=== PATIENT | female | born 1945 | race Asian ===

== ENCOUNTER 2020-08-18 06:18 | Inpatient (IN) | payer MEDICARE, OTHER, SELFPAY ==
[2020-08-18] VITALS (25 sets, daily range): BP systolic 92–171; BP diastolic 49–111; PULSE 72–100; RESP 16–30; TEMP 36.5–37.4; O2SAT 94–100; BMI 20.2
--- NOTE | 2020-08-18 06:35 | ED.WEAKNESS ---
HPI - Weakness <Adilene Manley DO - Last Filed: 08/21/20 03:30> General Chief complaint: Weakness Stated complaint: feels dehyrated has bone cancer Time Seen by Provider: 08/18/20 06:21 Source: patient and other (caregiver) Mode of arrival: Wheelchair Limitations: no limitations History of Present Illness HPI Narrative: This is a 75-year-old female who states she is feeling generally weak and dehydrated. She states her lips felt dry the last 2 or 3 days even though she has been drinking water regularly. She denies fevers or chills. She denies any chest pain or pressure, no nausea, no vomiting, she denies any issues with bowel movements such as diarrhea constipation. She denies any frequency, dysuria, urgency and has not appreciated any decrease in her urine output. She states that she has felt weak for the past 1-2 days. She did test COVID positive in June and was kept at [facility] until she tested covid negative. Patient has known cancer, she had her left pneumonectomy removed for cancer and is chronically home O2 dependent status post COVID infection in June, per her caregiver she has metastases to the brain, she also has bone metastases. Patient is on metoprolol, amlodipine, ibuprofen for pain, her daily chemotherapy agent and one additional medication. She denies any prior heart attacks or strokes. Denies any prior surgeries besides her left long ring removed. 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 Her caregiver states that she seemed increasingly weak since her discharge from a hospital. Related Data Home Medications Medication Instructions Recorded Confirmed amlodipine [Norvasc] 5 mg PO DAILY 08/18/20 08/18/20 gabapentin 100 mg PO TID 08/18/20 08/18/20 lorlatinib 25 mg PO DAILY 08/18/20 08/18/20 metoprolol tartrate 25 mg PO BID 08/18/20 08/18/20 Previous Rx's Medication Instructions Recorded fentanyl 1 patch TRANSDERMAL Q72H 7 Days #3 08/20/20 ea omeprazole 40 mg PO BID 90 Days #180 cap 08/20/20 Allergies Allergy/AdvReac Type Severity Reaction Status Date / Time No Known Drug Allergies Allergy Verified 08/18/20 07:47 Review of Systems <DO Gaurav Denson Last Filed: 08/21/20 03:30> Review of Systems ROS Unobtainable: All systems reviewed & are unremarkable except as noted in HPI and below Patient History <Adilene Manley DO - Last Filed: 08/21/20 03:30> Medical History (Updated 08/18/20 @ 15:29 by Karla Peterson MD) Cancer Chronic anemia Chronic respiratory failure Hypertension Metastatic lung cancer (metastasis from lung to other site) Pneumonia due to COVID-19 virus Surgical History (Updated 08/18/20 @ 06:52 by Adilene Manley DO) H/O pneumonectomy Family History (Updated 08/18/20 @ 15:30 by Karla Peterson MD) Father Natural with unknown cause Social History household members: spouse Smoking Status: Never smoker alcohol intake: never Exam <Adilene Manley DO - Last Filed: 08/21/20 03:30> Initial Vital Signs Initial Vital Signs: Vital Signs Temperature 98.1 F 08/18/20 06:25 Pulse Rate 84 08/18/20 06:25 Respiratory Rate 18 08/18/20 06:25 Blood Pressure 92/49 L 08/18/20 06:25 Pulse Oximetry 100 08/18/20 06:25 GEN: Thin, elderly appearing female, alert and oriented, patient appears to be in mild distress. Patient is significantly uncomfortable with movement from the wheelchair to the bed. She is improved after readjustment. HEENT: Atraumatic, pupils are equal round reactive to light, extraocular movements are intact, nares are clear, dry mucous membranes. HEART: Regular rate and rhythm without murmur, clicks, rubs. Pulses are equal in bilateral lower extremities LUNGS:Lungs clear to auscultation, no wheezes, rales, crackles, chest moves symmetrically ABD:bowel sounds normal, soft, non-tender, no guarding, rebound, rigidity, no masses noted, no hepatosplenomegaly :No CVA tenderness MSCL: Non-tender, no muscle atrophy, full range of motion but patient has pain weight-bearing on the left leg. NEURO:CN 2-12 intact, sensation normal SKIN: no rash, no erythema or other changes noted. <Zak Dobbins DO - Last Filed: 08/18/20 08:55> Initial Vital Signs Initial Vital Signs: Vital Signs Temperature 98.1 F 08/18/20 06:25 Pulse Rate 84 08/18/20 06:25 Respiratory Rate 18 08/18/20 06:25 Blood Pressure 92/49 L 08/18/20 06:25 Pulse Oximetry 100 08/18/20 06:25 Course <Adilene Manley, DO - Last Filed: 08/21/20 03:30> Orders Ordered: Discontinued Medications Acetaminophen (Acetaminophen 325 Mg Tablet) 650 mg PO Q6HR PRN PRN Reason: Fever/Mild Pain (1-3) Hydrocodone Bitart/Acetaminophen (Hydrocodone/Acet 5/325 Tablet) 1 tab PO Q4HR PRN PRN Reason: Pain, Moderate (4-6) Amlodipine Besylate (Amlodipine 5 Mg Tablet) 5 mg PO DAILY [facility] Last Admin: 08/20/20 08:32 Dose: 5 mg Documented by: Admin: 08/19/20 08:49 Dose: Not Given Documented by: ANDREA Amlodipine Besylate (Amlodipine 5 Mg Tablet) 5 mg PO NOW ONE Stop: 08/18/20 15:37 Last Admin: 08/18/20 16:20 Dose: 5 mg Documented by: LOUIS Fentanyl (Fentanyl 25 Mcg/Patch) 25 mcg TOP Q72H [facility] Last Admin: 08/19/20 14:33 Dose: 25 mcg Documented by: TERRENCE Gabapentin (Gabapentin 100 Mg Capsule) 100 mg PO TID [facility] Last Admin: 08/20/20 08:32 Dose: 100 mg Documented by: Admin: 08/19/20 20:29 Dose: 100 mg Documented by: Admin: 08/19/20 15:31 Dose: 100 mg Documented by: Admin: 08/19/20 08:46 Dose: 100 mg Documented by: Admin: 08/18/20 21:56 Dose: 100 mg Documented by: Admin: 08/18/20 15:01 Dose: 100 mg Documented by: BAILEY Heparin Sodium (Porcine) (Heparin Flush (Cl/Picc/Mid-Line) 50 Unit/5 Ml Syringe) 50 unit IV BID [facility] Last Admin: 08/20/20 08:33 Dose: 50 unit Documented by: Admin: 08/19/20 20:29 Dose: 50 unit Documented by: Admin: 08/19/20 08:52 Dose: 50 unit Documented by: Admin: 08/18/20 21:56 Dose: 50 unit Documented by: LOUIS Heparin Sodium (Porcine) (Heparin Flush (Cl/Picc/Mid-Line) 50 Unit/5 Ml Syringe) 50 unit IV PRN PRN PRN Reason: Flush Hydromorphone HCl (Hydromorphone 0.5 Mg Inj) 0.5 mg IV Q6H PRN PRN Reason: Pain, Moderate (4-6) Sodium Chloride (Normal Saline 0.9%) 1,000 mls @ 1,000 mls/hr IV BOLUS ONE Stop: 08/18/20 07:40 Last Infusion: 08/18/20 11:28 Dose: 0 mls/hr Documented by: Infusion: 08/18/20 11:21 Dose: 125 mls/hr Documented by: Infusion: 08/18/20 10:03 Dose: 0 mls/hr Documented by: Infusion: 08/18/20 07:49 Dose: 125 mls/hr Documented by: Admin: 08/18/20 07:26 Dose: 1,000 mls/hr Documented by: KELLE Pantoprazole Sodium 80 mg/ (Sodium Chloride) 100 mls @ 10 mls/hr IV CONT KIMBERLEE Last Infusion: 08/18/20 11:28 Dose: 0 mg/hr, 0 mls/hr Documented by: Admin: 08/18/20 11:19 Dose: 8 mg/hr, 10 mls/hr Documented by: SATHISH Sodium Chloride (Normal Saline 0.9%) 1,000 mls @ 125 mls/hr IV CONT KIMBERLEE Last Infusion: 08/18/20 16:21 Dose: 0 mls/hr Documented by: Admin: 08/18/20 15:01 Dose: 125 mls/hr Documented by: Admin: 08/18/20 08:23 Dose: Not Given Documented by: PANCHO Dextrose/Lactated Ringer's (Dextrose 5%-Lactated Ringers) 1,000 mls @ 84 mls/hr IV CONT KIMBERLEE Last Infusion: 08/18/20 18:09 Dose: 0 mls/hr Documented by: Admin: 08/18/20 16:20 Dose: 84 mls/hr Documented by: LOUIS Metoprolol Tartrate (Metoprolol Ir 25 Mg Tablet) 25 mg PO BID [facility] Last Admin: 08/20/20 08:32 Dose: 25 mg Documented by: Admin: 08/19/20 20:29 Dose: 25 mg Documented by: Admin: 08/19/20 08:49 Dose: Not Given Documented by: Admin: 08/18/20 21:56 Dose: 25 mg Documented by: LOUIS Morphine Sulfate (Morphine 4 Mg/Ml Inj) 4 mg IV NOW ONE Stop: 08/18/20 08:31 Last Admin: 08/18/20 08:36 Dose: 2 mg Documented by: PANCHO Morphine Sulfate (Morphine 2 Mg/Ml Inj) 2 mg IV NOW ONE Stop: 08/18/20 09:46 Last Admin: 08/18/20 09:56 Dose: 2 mg Documented by: PANCHO Morphine Sulfate (Morphine 2 Mg/Ml Inj) 2 mg IV Q4HR PRN PRN Reason: Pain, Moderate (4-6) Last Admin: 08/19/20 06:01 Dose: 2 mg Documented by: Admin: 08/18/20 22:20 Dose: 2 mg Documented by: Admin: 08/18/20 11:49 Dose: 2 mg Documented by: BAILEY Naloxone HCl (Naloxone 0.4 Mg/Ml Vial) 0.2 mg IV Q2MIN PRN PRN Reason: Opiate Reversal Lorlatinib 25 Mg (Tablet) 50 mg PO DAILY [facility] Last Admin: 08/20/20 08:54 Dose: 50 mg Documented by: Admin: 08/19/20 08:51 Dose: 50 mg Documented by: ANDREA Lorlatinib 25 Mg (Tablet) 25 mg PO BEDTIME [facility] Last Admin: 08/19/20 20:32 Dose: 25 mg Documented by: Admin: 08/18/20 21:56 Dose: 25 mg Documented by: LOUIS Ondansetron HCl (Ondansetron 4 Mg/2 Ml Inj) 4 mg IV Q8HR PRN PRN Reason: Nausea And Vomiting Oxycodone HCl (Oxycodone Ir 5 Mg Tablet) 5 mg PO Q4HR PRN PRN Reason: Pain, Moderate (4-6) Last Admin: 08/19/20 08:44 Dose: 5 mg Documented by: Admin: 08/18/20 13:40 Dose: 5 mg Documented by: BAILEY Oxycodone HCl (Oxycodone Ir 5 Mg Tablet) 5 mg PO Q3HR PRN PRN Reason: Pain, Moderate (4-6) Last Admin: 08/20/20 11:31 Dose: 5 mg Documented by: Admin: 08/19/20 18:15 Dose: 5 mg Documented by: Admin: 08/19/20 12:07 Dose: 5 mg Documented by: ANDREA Oxycodone HCl (Oxycodone 5 Mg/5 Ml Oral Solution) 10 mg PO Q4HR PRN PRN Reason: Pain, Moderate (4-6) Pantoprazole Sodium (Pantoprazole 40 Mg Vial) 80 mg IV NOW ONE Stop: 08/18/20 07:37 Last Admin: 08/18/20 07:51 Dose: 80 mg Documented by: SATHISH Pantoprazole Sodium (Pantoprazole 40 Mg Vial) 40 mg IV BID [facility] Last Admin: 08/20/20 08:32 Dose: 40 mg Documented by: Admin: 08/19/20 20:29 Dose: 40 mg Documented by: Admin: 08/19/20 08:46 Dose: 40 mg Documented by: ANDREA Sodium Chloride (Sodium Chloride 0.9% Flush) 10 ml IV PRN PRN PRN Reason: Flush Last Admin: 08/19/20 08:52 Dose: 10 ml Documented by: Admin: 08/18/20 22:20 Dose: 10 ml Documented by: LOUIS Sodium Chloride (Sodium Chloride 0.9% Flush) 10 ml IV BID [facility] Last Admin: 08/20/20 08:33 Dose: 10 ml Documented by: Admin: 08/19/20 20:29 Dose: 10 ml Documented by: Admin: 08/19/20 08:50 Dose: 10 ml Documented by: Admin: 08/18/20 21:57 Dose: 10 ml Documented by: LOUIS Vital Signs Vital signs: Vital Signs - 8 hr 08/18/20 06:25 08/18/20 08:36 Temperature 98.1 F Pulse Rate 84 83 Respiratory Rate 18 22 Blood Pressure 92/49 L 171/81 H Pulse Oximetry 100 100 <Zak Dobbins, DO - Last Filed: 08/18/20 08:55> Orders Ordered: Discontinued Medications Acetaminophen (Acetaminophen 325 Mg Tablet) 650 mg PO Q6HR PRN PRN Reason: Fever/Mild Pain (1-3) Hydrocodone Bitart/Acetaminophen (Hydrocodone/Acet 5/325 Tablet) 1 tab PO Q4HR PRN PRN Reason: Pain, Moderate (4-6) Amlodipine Besylate (Amlodipine 5 Mg Tablet) 5 mg PO DAILY [facility] Last Admin: 08/20/20 08:32 Dose: 5 mg Documented by: Admin: 08/19/20 08:49 Dose: Not Given Documented by: ANDREA Amlodipine Besylate (Amlodipine 5 Mg Tablet) 5 mg PO NOW ONE Stop: 08/18/20 15:37 Last Admin: 08/18/20 16:20 Dose: 5 mg Documented by: LOUIS Fentanyl (Fentanyl 25 Mcg/Patch) 25 mcg TOP Q72H [facility] Last Admin: 08/19/20 14:33 Dose: 25 mcg Documented by: TERRENCE Gabapentin (Gabapentin 100 Mg Capsule) 100 mg PO TID [facility] Last Admin: 08/20/20 08:32 Dose: 100 mg Documented by: Admin: 08/19/20 20:29 Dose: 100 mg Documented by: Admin: 08/19/20 15:31 Dose: 100 mg Documented by: Admin: 08/19/20 08:46 Dose: 100 mg Documented by: Admin: 08/18/20 21:56 Dose: 100 mg Documented by: Admin: 08/18/20 15:01 Dose: 100 mg Documented by: BAILEY Heparin Sodium (Porcine) (Heparin Flush (Cl/Picc/Mid-Line) 50 Unit/5 Ml Syringe) 50 unit IV BID [facility] Last Admin: 08/20/20 08:33 Dose: 50 unit Documented by: Admin: 08/19/20 20:29 Dose: 50 unit Documented by: Admin: 08/19/20 08:52 Dose: 50 unit Documented by: Admin: 08/18/20 21:56 Dose: 50 unit Documented by: LOUIS Heparin Sodium (Porcine) (Heparin Flush (Cl/Picc/Mid-Line) 50 Unit/5 Ml Syringe) 50 unit IV PRN PRN PRN Reason: Flush Hydromorphone HCl (Hydromorphone 0.5 Mg Inj) 0.5 mg IV Q6H PRN PRN Reason: Pain, Moderate (4-6) Sodium Chloride (Normal Saline 0.9%) 1,000 mls @ 1,000 mls/hr IV BOLUS ONE Stop: 08/18/20 07:40 Last Infusion: 08/18/20 11:28 Dose: 0 mls/hr Documented by: Infusion: 08/18/20 11:21 Dose: 125 mls/hr Documented by: Infusion: 08/18/20 10:03 Dose: 0 mls/hr Documented by: Infusion: 08/18/20 07:49 Dose: 125 mls/hr Documented by: Admin: 08/18/20 07:26 Dose: 1,000 mls/hr Documented by: KELLE Pantoprazole Sodium 80 mg/ (Sodium Chloride) 100 mls @ 10 mls/hr IV CONT KIMBERLEE Last Infusion: 08/18/20 11:28 Dose: 0 mg/hr, 0 mls/hr Documented by: Admin: 08/18/20 11:19 Dose: 8 mg/hr, 10 mls/hr Documented by: SATHISH Sodium Chloride (Normal Saline 0.9%) 1,000 mls @ 125 mls/hr IV CONT KIMBERLEE Last Infusion: 08/18/20 16:21 Dose: 0 mls/hr Documented by: Admin: 08/18/20 15:01 Dose: 125 mls/hr Documented by: Admin: 08/18/20 08:23 Dose: Not Given Documented by: PANCHO Dextrose/Lactated Ringer's (Dextrose 5%-Lactated Ringers) 1,000 mls @ 84 mls/hr IV CONT KIMBERLEE Last Infusion: 08/18/20 18:09 Dose: 0 mls/hr Documented by: Admin: 08/18/20 16:20 Dose: 84 mls/hr Documented by: LOUIS Metoprolol Tartrate (Metoprolol Ir 25 Mg Tablet) 25 mg PO BID [facility] Last Admin: 08/20/20 08:32 Dose: 25 mg Documented by: Admin: 08/19/20 20:29 Dose: 25 mg Documented by: Admin: 08/19/20 08:49 Dose: Not Given Documented by: Admin: 08/18/20 21:56 Dose: 25 mg Documented by: LOUIS Morphine Sulfate (Morphine 4 Mg/Ml Inj) 4 mg IV NOW ONE Stop: 08/18/20 08:31 Last Admin: 08/18/20 08:36 Dose: 2 mg Documented by: PANCHO Morphine Sulfate (Morphine 2 Mg/Ml Inj) 2 mg IV NOW ONE Stop: 08/18/20 09:46 Last Admin: 08/18/20 09:56 Dose: 2 mg Documented by: PANCHO Morphine Sulfate (Morphine 2 Mg/Ml Inj) 2 mg IV Q4HR PRN PRN Reason: Pain, Moderate (4-6) Last Admin: 08/19/20 06:01 Dose: 2 mg Documented by: Admin: 08/18/20 22:20 Dose: 2 mg Documented by: Admin: 08/18/20 11:49 Dose: 2 mg Documented by: BAILEY Naloxone HCl (Naloxone 0.4 Mg/Ml Vial) 0.2 mg IV Q2MIN PRN PRN Reason: Opiate Reversal Lorlatinib 25 Mg (Tablet) 50 mg PO DAILY [facility] Last Admin: 08/20/20 08:54 Dose: 50 mg Documented by: Admin: 08/19/20 08:51 Dose: 50 mg Documented by: ANDREA Lorlatinib 25 Mg (Tablet) 25 mg PO BEDTIME [facility] Last Admin: 08/19/20 20:32 Dose: 25 mg Documented by: Admin: 08/18/20 21:56 Dose: 25 mg Documented by: LOUIS Ondansetron HCl (Ondansetron 4 Mg/2 Ml Inj) 4 mg IV Q8HR PRN PRN Reason: Nausea And Vomiting Oxycodone HCl (Oxycodone Ir 5 Mg Tablet) 5 mg PO Q4HR PRN PRN Reason: Pain, Moderate (4-6) Last Admin: 08/19/20 08:44 Dose: 5 mg Documented by: Admin: 08/18/20 13:40 Dose: 5 mg Documented by: BAILEY Oxycodone HCl (Oxycodone Ir 5 Mg Tablet) 5 mg PO Q3HR PRN PRN Reason: Pain, Moderate (4-6) Last Admin: 08/20/20 11:31 Dose: 5 mg Documented by: Admin: 08/19/20 18:15 Dose: 5 mg Documented by: Admin: 08/19/20 12:07 Dose: 5 mg Documented by: ANDREA Oxycodone HCl (Oxycodone 5 Mg/5 Ml Oral Solution) 10 mg PO Q4HR PRN PRN Reason: Pain, Moderate (4-6) Pantoprazole Sodium (Pantoprazole 40 Mg Vial) 80 mg IV NOW ONE Stop: 08/18/20 07:37 Last Admin: 08/18/20 07:51 Dose: 80 mg Documented by: SATHISH Pantoprazole Sodium (Pantoprazole 40 Mg Vial) 40 mg IV BID [facility] Last Admin: 08/20/20 08:32 Dose: 40 mg Documented by: Admin: 08/19/20 20:29 Dose: 40 mg Documented by: Admin: 08/19/20 08:46 Dose: 40 mg Documented by: ANDREA Sodium Chloride (Sodium Chloride 0.9% Flush) 10 ml IV PRN PRN PRN Reason: Flush Last Admin: 08/19/20 08:52 Dose: 10 ml Documented by: Admin: 08/18/20 22:20 Dose: 10 ml Documented by: LOUIS Sodium Chloride (Sodium Chloride 0.9% Flush) 10 ml IV BID [facility] Last Admin: 08/20/20 08:33 Dose: 10 ml Documented by: Admin: 08/19/20 20:29 Dose: 10 ml Documented by: Admin: 08/19/20 08:50 Dose: 10 ml Documented by: Admin: 08/18/20 21:57 Dose: 10 ml Documented by: LOUIS Vital Signs Vital signs: Vital Signs - 8 hr 08/18/20 06:25 08/18/20 08:36 Temperature 98.1 F Pulse Rate 84 83 Respiratory Rate 18 22 Blood Pressure 92/49 L 171/81 H Pulse Oximetry 100 100 MDM - Weakness <Adilene Manley DO - Last Filed: 08/21/20 03:30> Lab Data Result diagrams: 08/20/20 05:00 08/20/20 05:00 Labs: Lab Results 08/18/20 08/18/20 08/18/20 Range/Units 06:45 06:45 06:45 WBC 13.3 H (4.5-11.0) X10^3/uL RBC 3.13 L (4.0-5.2) X10^6/uL Hgb 7.7 L (12.0-16.0) g/dL Hct 24.9 L (36-46) % MCV 79.5 L (80-100) fL MCH 24.6 L (26-34) PG MCHC 30.9 (30-36) % RDW 18.9 H (11.6-14.8) % Plt Count 291 (150-400) X10^3/uL Neut % (Auto) 78.3 H (50-75) % Lymph % (Auto) 14.8 L (25-40) % [place] % (Auto) 5.1 (3-14) % Eos % (Auto) 0.9 L (2-4) % Baso % (Auto) 0.9 (0-2) % Neut # (Auto) 42042 H (4706-6501) /uL Lymph # (Auto) 2000 (3039-1376) /uL [place] # (Auto) 700 (0-900) /uL Eos # (Auto) 100 (0-450) /uL Baso # (Auto) 100 (0-100) /uL Platelet Estimate Adequate on smear Plt Morphology Comment RBC Morphology See below Polychromasia 1+ H Hypochromasia 1+ H Poikilocytosis 2+ H Anisocytosis 2+ H Target Cells 1+ H PT 11.5 (10.1-12.7) SECONDS INR 1.0 (0.9-1.3) APTT 29 (26.4-36.2) SECONDS Sodium 131 L (137-145) mmol/L Potassium 4.7 (3.4-5.1) mmol/L Chloride 102 (98-107) mmol/L Carbon Dioxide 30 (22-32) mmol/L BUN 18 H (7-17) mg/dL Creatinine 0.39 L (0.52-1.04) mg/dL Estimated GFR > 60.0 (>60) mL/min BUN/Creatinine Ratio 46.2 H (6-22) Glucose 132 H (80-110) mg/dL Lactate (0.7-2.1) mmol/L Calcium 9.6 (8.4-10.2) mg/dL Total Bilirubin 0.8 (0.2-1.3) mg/dL AST 84 H (14-36) IU/L ALT 19 (<35) IU/L Alkaline Phosphatase 997 H (38-126) U/L Troponin I < 0.012 (0.01-0.034) ng/mL Total Protein 7.0 (6.3-8.2) g/dL Albumin 3.7 (3.5-5.0) g/dL Globulin 3.3 (1.7-4.1) g/dL Albumin/Globulin Ratio 1.1 (1.0-2.8) SARS-CoV-2 (PCR) (Negative) Blood Type Antibody Screen Crossmatch 08/18/20 08/18/20 08/18/20 Range/Units 06:45 06:55 07:25 WBC (4.5-11.0) X10^3/uL RBC (4.0-5.2) X10^6/uL Hgb (12.0-16.0) g/dL Hct (36-46) % MCV (80-100) fL MCH (26-34) PG MCHC (30-36) % RDW (11.6-14.8) % Plt Count (150-400) X10^3/uL Neut % (Auto) (50-75) % Lymph % (Auto) (25-40) % [place] % (Auto) (3-14) % Eos % (Auto) (2-4) % Baso % (Auto) (0-2) % Neut # (Auto) (6780-3211) /uL Lymph # (Auto) (2381-0445) /uL [place] # (Auto) (0-900) /uL Eos # (Auto) (0-450) /uL Baso # (Auto) (0-100) /uL Platelet Estimate Plt Morphology Comment RBC Morphology Polychromasia Hypochromasia Poikilocytosis Anisocytosis Target Cells PT (10.1-12.7) SECONDS INR (0.9-1.3) APTT (26.4-36.2) SECONDS Sodium (137-145) mmol/L Potassium (3.4-5.1) mmol/L Chloride (98-107) mmol/L Carbon Dioxide (22-32) mmol/L BUN (7-17) mg/dL Creatinine (0.52-1.04) mg/dL Estimated GFR (>60) mL/min BUN/Creatinine Ratio (6-22) Glucose (80-110) mg/dL Lactate 1.1 (0.7-2.1) mmol/L Calcium (8.4-10.2) mg/dL Total Bilirubin (0.2-1.3) mg/dL AST (14-36) IU/L ALT (<35) IU/L Alkaline Phosphatase (38-126) U/L Troponin I (0.01-0.034) ng/mL Total Protein (6.3-8.2) g/dL Albumin (3.5-5.0) g/dL Globulin (1.7-4.1) g/dL Albumin/Globulin Ratio (1.0-2.8) SARS-CoV-2 (PCR) Negative (Negative) Blood Type B Positive Antibody Screen Negative Crossmatch See Detail <Zak Dobbins, DO - Last Filed: 08/18/20 08:55> Lab Data Labs: Lab Results 08/18/20 08/18/20 08/18/20 Range/Units 06:45 06:45 06:45 WBC 13.3 H (4.5-11.0) X10^3/uL RBC 3.13 L (4.0-5.2) X10^6/uL Hgb 7.7 L (12.0-16.0) g/dL Hct 24.9 L (36-46) % MCV 79.5 L (80-100) fL MCH 24.6 L (26-34) PG MCHC 30.9 (30-36) % RDW 18.9 H (11.6-14.8) % Plt Count 291 (150-400) X10^3/uL Neut % (Auto) 78.3 H (50-75) % Lymph % (Auto) 14.8 L (25-40) % [place] % (Auto) 5.1 (3-14) % Eos % (Auto) 0.9 L (2-4) % Baso % (Auto) 0.9 (0-2) % Neut # (Auto) 44157 H (2779-7562) /uL Lymph # (Auto) 2000 (0735-9273) /uL [place] # (Auto) 700 (0-900) /uL Eos # (Auto) 100 (0-450) /uL Baso # (Auto) 100 (0-100) /uL Platelet Estimate Adequate on smear Plt Morphology Comment RBC Morphology See below Polychromasia 1+ H Hypochromasia 1+ H Poikilocytosis 2+ H Anisocytosis 2+ H Target Cells 1+ H PT 11.5 (10.1-12.7) SECONDS INR 1.0 (0.9-1.3) APTT 29 (26.4-36.2) SECONDS Sodium 131 L (137-145) mmol/L Potassium 4.7 (3.4-5.1) mmol/L Chloride 102 (98-107) mmol/L Carbon Dioxide 30 (22-32) mmol/L BUN 18 H (7-17) mg/dL Creatinine 0.39 L (0.52-1.04) mg/dL Estimated GFR > 60.0 (>60) mL/min BUN/Creatinine Ratio 46.2 H (6-22) Glucose 132 H (80-110) mg/dL Lactate (0.7-2.1) mmol/L Calcium 9.6 (8.4-10.2) mg/dL Total Bilirubin 0.8 (0.2-1.3) mg/dL AST 84 H (14-36) IU/L ALT 19 (<35) IU/L Alkaline Phosphatase 997 H (38-126) U/L Troponin I < 0.012 (0.01-0.034) ng/mL Total Protein 7.0 (6.3-8.2) g/dL Albumin 3.7 (3.5-5.0) g/dL Globulin 3.3 (1.7-4.1) g/dL Albumin/Globulin Ratio 1.1 (1.0-2.8) SARS-CoV-2 (PCR) (Negative) Blood Type Antibody Screen Crossmatch 08/18/20 08/18/20 08/18/20 Range/Units 06:45 06:55 07:25 WBC (4.5-11.0) X10^3/uL RBC (4.0-5.2) X10^6/uL Hgb (12.0-16.0) g/dL Hct (36-46) % MCV (80-100) fL MCH (26-34) PG MCHC (30-36) % RDW (11.6-14.8) % Plt Count (150-400) X10^3/uL Neut % (Auto) (50-75) % Lymph % (Auto) (25-40) % [place] % (Auto) (3-14) % Eos % (Auto) (2-4) % Baso % (Auto) (0-2) % Neut # (Auto) (4945-7743) /uL Lymph # (Auto) (5575-4689) /uL [place] # (Auto) (0-900) /uL Eos # (Auto) (0-450) /uL Baso # (Auto) (0-100) /uL Platelet Estimate Plt Morphology Comment RBC Morphology Polychromasia Hypochromasia Poikilocytosis Anisocytosis Target Cells PT (10.1-12.7) SECONDS INR (0.9-1.3) APTT (26.4-36.2) SECONDS Sodium (137-145) mmol/L Potassium (3.4-5.1) mmol/L Chloride (98-107) mmol/L Carbon Dioxide (22-32) mmol/L BUN (7-17) mg/dL Creatinine (0.52-1.04) mg/dL Estimated GFR (>60) mL/min BUN/Creatinine Ratio (6-22) Glucose (80-110) mg/dL Lactate 1.1 (0.7-2.1) mmol/L Calcium (8.4-10.2) mg/dL Total Bilirubin (0.2-1.3) mg/dL AST (14-36) IU/L ALT (<35) IU/L Alkaline Phosphatase (38-126) U/L Troponin I (0.01-0.034) ng/mL Total Protein (6.3-8.2) g/dL Albumin (3.5-5.0) g/dL Globulin (1.7-4.1) g/dL Albumin/Globulin Ratio (1.0-2.8) SARS-CoV-2 (PCR) Negative (Negative) Blood Type B Positive Antibody Screen Negative Crossmatch See Detail Imaging Data Chest x-ray: Radiologist Impression: Right basilar interstitial pneumonia Status post left pneumonectomy in complete whiteout the left hemithorax. Final read chest x-ray: Radiologist Impression: [address] [id number] ReportSigned Patient: Chon FioreMR#: [id number]: 4Acct:[id number]/Sex: 75 / FDate of Service: 08/18/20Loc: EDAccession Number: [id number] Procedure: XR chest 1V Ordering Provider: Adilene Manley D.O. PROCEDURE: XR CHEST 1V INDICATIONS: weakness, history of lung cancer and left lung lobectomy TECHNIQUE: One view of the chest was acquired. COMPARISON: [facility], CR, XR CHEST 1VW (PORTABLE), 10/16/2016, 17:51. [facility], CT, CT CHEST ABDOMEN PELVIS WITH CONTRAST, 12/28/2018, 10:57. [facility], CT, CT CHEST ABDOMEN PELVIS WITH CONTRAST, 11/29/2019, 12:38. FINDINGS: Surgical changes and devices: Left pneumonectomy change can be seen. Lungs and pleura: The right lung is hyperexpanded, yet appears clear. Mediastinum: Mediastinum is shifted to the left, with its margins obscured. Bones and chest wall: No suspicious bony lesions. Age-appropriate bony degenerative changes are seen. Overlying soft tissues appear unremarkable. IMPRESSION: No acute abnormality is seen on this portable chest study, with prior left pneumonectomy. Dictated by: Kristian Almonte M.D. on 08/18/2020 at 7:05 Approved by: Kristian Almonte M.D. on 08/18/2020 at 7:10 ECG Data Attestation: I personally reviewed and interpreted this ECG as follows: Prior ECG tracings: not available for review Interpretation: Sinus rhythm Ventricular rate 83 Normal axis Artifact noted No ST T wave changes MDM Narrative Medical decision making narrative: Dr dobbins: Received turned over. Review patient's history and physical and labs. Upon arrival patient's systolic blood pressure was in the 90s. This did improve here in the emergency department with only minimal amount of fluids. She was Hemoccult positive. Otherwise had a benign abdominal exam. She does not drink alcohol and is not on nonsteroidal anti-inflammatories however does take prednisone because of her cancer. She is at baseline respiratory status. H&H today is low. We have no prior labs to refer to in our system however was able to review notes from her discharge from outside facility which showed a hemoglobin of 9.8 and hematocrit of 31.8 on 07/18/2020. I suspect that her fatigue is related to her low blood counts. Given her positive Hemoccult status after soon GI is the origin. She was started on Protonix. Will transfuse 1 unit of packed red blood cells. She is alert oriented x3. I did discuss with her her code status and she is a full code. I discussed the case with Dr. Smith with General surgery who see the patient in the hospital. Discussed the case with Dr. peterson with Internal Medicine who will admit for further evaluation treatment. I did discuss the admission with the patient and her who is at bedside. They expressed understanding and agreement. Discharge Plan Departure Patient Disposition: Admitted As Inpatient Clinical Impression: Anemia, Acute GI bleeding, Fatigue Admit Date/Time: 08/18/20 08:49 Admit Provider: Karla Peterson ED Sign-out <Adilene Manley, - Last Filed: 08/21/20 03:30> Sign Out Provider Sign Out Attestation: Patient signed out to Dr. Dobbins. Patient had initial evaluation, labs and imaging are pending, patient is alert but hypotensive with otherwise normal vitals.
--- NOTE | 2020-08-18 06:41 | DI.RAD.S_ITS ---
PROCEDURE: XR CHEST 1V INDICATIONS: weakness, history of lung cancer and left lung lobectomy TECHNIQUE: One view of the chest was acquired. COMPARISON: [facility], CR, XR CHEST 1VW (PORTABLE), 10/16/2016, 17:51. [facility], CT, CT CHEST ABDOMEN PELVIS WITH CONTRAST, 12/28/2018, 10:57. [facility], CT, CT CHEST ABDOMEN PELVIS WITH CONTRAST, 11/29/2019, 12:38. FINDINGS: Surgical changes and devices: Left pneumonectomy change can be seen. Lungs and pleura: The right lung is hyperexpanded, yet appears clear. Mediastinum: Mediastinum is shifted to the left, with its margins obscured. Bones and chest wall: No suspicious bony lesions. Age-appropriate bony degenerative changes are seen. Overlying soft tissues appear unremarkable. IMPRESSION: No acute abnormality is seen on this portable chest study, with prior left pneumonectomy. Dictated by: Kristian Almonte M.D. on 08/18/2020 at 7:05 Approved by: Kristian Almonte M.D. on 08/18/2020 at 7:10
[2020-08-18 06:57] LABS: Basophils Absolute Auto 100 /uL (0-100); Basophils Percent Auto 0.9 % (0-2); Eosinophils Absolute Auto 100 /uL (0-450); Eosinophils Percent Auto 0.9 % (2-4); Hematocrit 24.9 % (36-46); Hemoglobin 7.7 g/dL (12.0-16.0); Lymphocytes Absolute Auto 2000 /uL (1100-4500); Lymphocytes Percent Auto 14.8 % (25-40); Mean Corpuscular HGB Conc 30.9 % (30-36); Mean Corpuscular Hemoglobin 24.6 PG (26-34); Mean Corpuscular Volume 79.5 fL (80-100); Monocytes Absolute Auto 700 /uL (0-900); Monocytes Percent Auto 5.1 % (3-14); Neutrophils Absolute Auto 10400 /uL (1500-7000); Neutrophils Percent Auto 78.3 % (50-75); Platelet Count 291 X10^3/uL (150-400); Red Blood Cell Count 3.13 X10^6/uL (4.0-5.2); Red Cell Distribution Width 18.9 % (11.6-14.8); White Blood Cell Count 13.3 X10^3/uL (4.5-11.0)
[2020-08-18 06:58] LABS: Add Manual Diff / Slide Review SLIDE REVIEW
[2020-08-18 07:04] LABS: Prothrombin Time 11.5 SECONDS (10.1-12.7)
[2020-08-18 07:06] LABS: PTT Partial Thromboplastin Tim 29 SECONDS (26.4-36.2)
[2020-08-18 07:07] LABS: Lactate (Lactic Acid) 1.1 mmol/L (0.7-2.1)
[2020-08-18 07:08] LABS: Alanine Aminotransferase 19 IU/L (<35); BUN Creatinine Ratio 46.2 (6-22); Bilirubin Total 0.8 mg/dL (0.2-1.3); Blood Urea Nitrogen 18 mg/dL (7-17); Calcium 9.6 mg/dL (8.4-10.2); Carbon Dioxide 30 mmol/L (22-32); Chloride 102 mmol/L (98-107); Estimated Glomerular Filt Rate > 60.0 mL/min (>60); Glucose 132 mg/dL (80-110); Sodium 131 mmol/L (137-145)
[2020-08-18 07:16] LABS: COVID19 -Nasal RAPID Negative (Negative)
[2020-08-18 07:20] LABS: Troponin I < 0.012 ng/mL (0.01-0.034)
[2020-08-18] MEDS: SODIUM CHLORIDE 0.9% 1,000 ML 1000 ML IV (07:26)
[2020-08-18 07:28] LABS: Albumin 3.7 g/dL (3.5-5.0); Alkaline Phosphatase 997 U/L (38-126); Aspartate Aminotransferase 84 IU/L (14-36)
[2020-08-18 07:29] LABS: Potassium 4.7 mmol/L (3.4-5.1)
[2020-08-18 07:30] LABS: Albumin Globulin Ratio 1.1 (1.0-2.8); Globulin 3.3 g/dL (1.7-4.1); HEMOLYSIS 26 (0-50)
[2020-08-18] MEDS: PANTOPRAZOLE 40 MG VIAL 80 MG IV (07:51)
[2020-08-18 07:52] LABS: Anisocytosis 2+; Hypochromasia 1+; Platelet Estimate Adequate on smear; Poikilocytosis 2+; Polychromasia 1+; Target Cells 1+
--- NOTE | 2020-08-18 08:15 | PC.NURSE ---
received lux from lab, lab requires one more red top due to no blood bank history for patient. This nurse pulled from patient IV.
[2020-08-18] MEDS: MORPHINE 4 MG/ML INJ IV (08:36)
--- NOTE | 2020-08-18 09:25 | PC.NURSE ---
Report called to [facility]. Pt will go up after getting more substantial IV access
[2020-08-18] MEDS: MORPHINE 2 MG/ML INJ IV ×3 (09:56→22:20)
--- NOTE | 2020-08-18 10:34 | PC.NURSE ---
PICC line team here to place midline
[2020-08-18] MEDS: PANTOPRAZOLE 80 MG in SODIUM CHLORIDE 0.9% 100 ML 10 ML IV (11:19)
[2020-08-18 11:25] LABS: Adenovirus Not Detected (Not Detect); B. parapertussis Not Detected (Not Detecte); Bordetella pertussis Not Detected (Not Detect); Chlamydophila pneumoniae Not Detected (Not Detect); Coronavirus 229E Not Detected (Not Detect); Coronavirus HKU1 Not Detected (Not Detect); Coronavirus NL 63 Not Detected (Not Detect); Coronavirus OC43 Not Detected (Not Detect); Human Metapneumovirus Not Detected (Not Detect); Human Rhinovirus/Enterovirus Not Detected (Not Detect); Influenza A Not Detected (Not Detect); Influenza B Not Detected (Not Detect); Mycoplasma pneumoniae Not Detected (Not Detect); Parainfluenza Virus 1 Not Detected (Not Detect); Parainfluenza Virus 2 Not Detected (Not Detect); Parainfluenza Virus 3 Not Detected (Not Detect); Parainfluenza Virus 4 Not Detected (Not Detect); Respiratory Syncytial Virus Not Detected (Not Detect); SARS- CoV-2 Not Detected (Not Detecte)
--- NOTE | 2020-08-18 11:31 | PC.NURSE ---
double lumen midline
--- NOTE | 2020-08-18 13:33 | PC.NURSE ---
Addendum entered by Marcy Houser R.N. 08/18/20 14:44: Patient only able to void 100cc linh colored urine. Patient reports feeling that she needs to void more, bladder scanned for 550cc PVR. Order to place spicer. Original Note: Patient alert oriented rates pain to right hip 11/29. Gvien 2mg IVP morphine. Patient taking some fluids and snack, given 5mg oxycodone. Oriented to room and call light.
[2020-08-18] MEDS: OXYCODONE IR 5 MG TABLET PO (13:40)
--- NOTE | 2020-08-18 14:24 | P.HP_ITS ---
History of Present Illness History of Present Illness Date Patient Seen: 08/18/20 Chief complaint: feels dehyrated has bone cancer Patient History Medical History (Updated 08/18/20 @ 08:37 by Zak Dobbins DO) Cancer Surgical History (Updated 08/18/20 @ 06:52 by Adilene Manley DO) H/O pneumonectomy Family & Social History Social History: household members spouse Prior Living Arrangements House Safety & Behavioral: Feels Safe in Current Yes Environment Been Physically Hurt or No Threatened By a Person Suicidal Ideation Description None Suicide Plan Description No Plan Tobacco & Substance use: Smoking Status Never smoker alcohol intake never Substance Use Type does not use Meds Home Medications and Allergies Home Medications Medication Instructions Recorded Confirmed Type amlodipine [Norvasc] 5 mg PO DAILY 08/18/20 08/18/20 History gabapentin 100 mg PO TID 08/18/20 08/18/20 History ibuprofen 600 mg PO BID PRN 08/18/20 08/18/20 History lorlatinib 25 mg PO DAILY 08/18/20 08/18/20 History metoprolol tartrate 25 mg PO BID 08/18/20 08/18/20 History Allergies Allergy/AdvReac Type Severity Reaction Status Date / Time No Known Drug Allergies Allergy Verified 08/18/20 07:47 Exam Vital Signs (past 8 hours): - 08/18/20 06:25 08/18/20 08:36 08/18/20 08:51 Temperature 98.1 F 97.8 F Pulse Rate 84 83 80 Respiratory Rate 18 22 16 Blood Pressure 92/49 L 171/81 H 171/81 H Pulse Oximetry 100 100 100 08/18/20 08:58 08/18/20 09:02 08/18/20 09:12 Temperature 97.8 F 97.7 F 98.2 F Pulse Rate 80 79 78 Respiratory Rate 16 18 22 Blood Pressure 150/67 H 138/64 158/74 H Pulse Oximetry 100 100 08/18/20 09:13 08/18/20 09:15 08/18/20 09:30 Temperature 97.7 F Pulse Rate 78 77 76 Respiratory Rate 25 H 24 22 Blood Pressure 135/66 128/64 127/62 Pulse Oximetry 100 100 100 08/18/20 09:45 08/18/20 09:46 08/18/20 10:00 Temperature Pulse Rate 89 85 76 Respiratory Rate 30 H 27 H 29 H Blood Pressure 146/71 H 134/63 Pulse Oximetry 95 94 100 08/18/20 10:15 08/18/20 10:30 08/18/20 10:45 Temperature 98.3 F Pulse Rate 72 79 80 Respiratory Rate 24 25 H 27 H Blood Pressure 131/67 138/76 141/72 H Pulse Oximetry 100 100 100 08/18/20 11:00 08/18/20 11:15 08/18/20 11:16 Temperature Pulse Rate 80 90 87 Respiratory Rate 27 H 29 H 25 H Blood Pressure 139/76 158/74 H Pulse Oximetry 100 100 100 08/18/20 12:11 Temperature 99.4 F Pulse Rate 100 H Respiratory Rate 30 H Blood Pressure 155/111 H Pulse Oximetry 97 Oxygen Delivery Method Nasal Cannula Oxygen Flow Rate 2 Objective Labs Result Diagrams: 08/18/20 06:45 08/18/20 06:45 Labs: Laboratory Results - last 24 hr 08/18/20 08/18/20 08/18/20 06:45 06:45 06:45 WBC 13.3 H RBC 3.13 L Hgb 7.7 L Hct 24.9 L MCV 79.5 L MCH 24.6 L MCHC 30.9 RDW 18.9 H Plt Count 291 Neut % (Auto) 78.3 H Lymph % (Auto) 14.8 L [place] % (Auto) 5.1 Eos % (Auto) 0.9 L Baso % (Auto) 0.9 Neut # (Auto) 95699 H Lymph # (Auto) 2000 [place] # (Auto) 700 Eos # (Auto) 100 Baso # (Auto) 100 Platelet Estimate Adequate on smear Plt Morphology Comment RBC Morphology See below Polychromasia 1+ H Hypochromasia 1+ H Poikilocytosis 2+ H Anisocytosis 2+ H Target Cells 1+ H PT 11.5 INR 1.0 APTT 29 Sodium 131 L Potassium 4.7 Chloride 102 Carbon Dioxide 30 BUN 18 H Creatinine 0.39 L Estimated GFR > 60.0 BUN/Creatinine Ratio 46.2 H Glucose 132 H Lactate Calcium 9.6 Total Bilirubin 0.8 AST 84 H ALT 19 Alkaline Phosphatase 997 H Troponin I < 0.012 Total Protein 7.0 Albumin 3.7 Globulin 3.3 Albumin/Globulin Ratio 1.1 Chlamy pneumoniae PCR Adenovirus (PCR) B.parapertussis DNA PCR Coronavirus OC43 (PCR) Coronavirus HKU1 (PCR) Coronavirus 229E (PCR) SARS-CoV-2 (PCR) Coronavirus NL63 (PCR) Human Metapneumovir PCR Influenza Type A (PCR) Influenza Type B (PCR) M. pneumoniae (PCR) Parainfluenza 1 (PCR) Parainfluenza 2 (PCR) Parainfluenza 3 (PCR) Parainfluenza 4 (PCR) RSV (PCR) Entero/Rhino (PCR) Blood Type Antibody Screen Crossmatch 08/18/20 08/18/20 08/18/20 06:45 06:55 07:25 WBC RBC Hgb Hct MCV MCH MCHC RDW Plt Count Neut % (Auto) Lymph % (Auto) [place] % (Auto) Eos % (Auto) Baso % (Auto) Neut # (Auto) Lymph # (Auto) [place] # (Auto) Eos # (Auto) Baso # (Auto) Platelet Estimate Plt Morphology Comment RBC Morphology Polychromasia Hypochromasia Poikilocytosis Anisocytosis Target Cells PT INR APTT Sodium Potassium Chloride Carbon Dioxide BUN Creatinine Estimated GFR BUN/Creatinine Ratio Glucose Lactate 1.1 Calcium Total Bilirubin AST ALT Alkaline Phosphatase Troponin I Total Protein Albumin Globulin Albumin/Globulin Ratio Chlamy pneumoniae PCR Adenovirus (PCR) B.parapertussis DNA PCR Coronavirus OC43 (PCR) Coronavirus HKU1 (PCR) Coronavirus 229E (PCR) SARS-CoV-2 (PCR) Negative Coronavirus NL63 (PCR) Human Metapneumovir PCR Influenza Type A (PCR) Influenza Type B (PCR) M. pneumoniae (PCR) Parainfluenza 1 (PCR) Parainfluenza 2 (PCR) Parainfluenza 3 (PCR) Parainfluenza 4 (PCR) RSV (PCR) Entero/Rhino (PCR) Blood Type B Positive Antibody Screen Negative Crossmatch See Detail 08/18/20 09:18 WBC RBC Hgb Hct MCV MCH MCHC RDW Plt Count Neut % (Auto) Lymph % (Auto) [place] % (Auto) Eos % (Auto) Baso % (Auto) Neut # (Auto) Lymph # (Auto) [place] # (Auto) Eos # (Auto) Baso # (Auto) Platelet Estimate Plt Morphology Comment RBC Morphology Polychromasia Hypochromasia Poikilocytosis Anisocytosis Target Cells PT INR APTT Sodium Potassium Chloride Carbon Dioxide BUN Creatinine Estimated GFR BUN/Creatinine Ratio Glucose Lactate Calcium Total Bilirubin AST ALT Alkaline Phosphatase Troponin I Total Protein Albumin Globulin Albumin/Globulin Ratio Chlamy pneumoniae PCR Not detected Adenovirus (PCR) Not detected B.parapertussis DNA PCR Not detected Coronavirus OC43 (PCR) Not detected Coronavirus HKU1 (PCR) Not detected Coronavirus 229E (PCR) Not detected SARS-CoV-2 (PCR) Not detected Coronavirus NL63 (PCR) Not detected Human Metapneumovir PCR Not detected Influenza Type A (PCR) Not detected Influenza Type B (PCR) Not detected M. pneumoniae (PCR) Not detected Parainfluenza 1 (PCR) Not detected Parainfluenza 2 (PCR) Not detected Parainfluenza 3 (PCR) Not detected Parainfluenza 4 (PCR) Not detected RSV (PCR) Not detected Entero/Rhino (PCR) Not detected Blood Type Antibody Screen Crossmatch Quality VTE Deep Vein Thrombosis/Pulmonary Embolism Present on Admission: No
--- NOTE | 2020-08-18 14:30 | PM.HP.1 ---
History of Present Illness History of Present Illness Date Patient Seen: 08/18/20 Chief complaint: feels dehyrated has bone cancer Patient History Medical History (Updated 08/18/20 @ 08:37 by Zak Dobbins DO) Cancer Surgical History (Updated 08/18/20 @ 06:52 by Adilene Manley DO) H/O pneumonectomy Family & Social History Social History: household members spouse Prior Living Arrangements House Safety & Behavioral: Feels Safe in Current Yes Environment Been Physically Hurt or No Threatened By a Person Suicidal Ideation Description None Suicide Plan Description No Plan Tobacco & Substance use: Smoking Status Never smoker alcohol intake never Substance Use Type does not use Meds Home Medications and Allergies Home Medications Medication Instructions Recorded Confirmed Type amlodipine [Norvasc] 5 mg PO DAILY 08/18/20 08/18/20 History gabapentin 100 mg PO TID 08/18/20 08/18/20 History ibuprofen 600 mg PO BID PRN 08/18/20 08/18/20 History lorlatinib 25 mg PO DAILY 08/18/20 08/18/20 History metoprolol tartrate 25 mg PO BID 08/18/20 08/18/20 History Allergies Allergy/AdvReac Type Severity Reaction Status Date / Time No Known Drug Allergies Allergy Verified 08/18/20 07:47 Exam Vital Signs (past 8 hours): - 08/18/20 08:36 08/18/20 08:51 08/18/20 08:58 Temperature 97.8 F 97.8 F Pulse Rate 83 80 80 Respiratory Rate 22 16 16 Blood Pressure 171/81 H 171/81 H 150/67 H Pulse Oximetry 100 100 08/18/20 09:02 08/18/20 09:12 08/18/20 09:13 Temperature 97.7 F 98.2 F Pulse Rate 79 78 78 Respiratory Rate 18 22 25 H Blood Pressure 138/64 158/74 H 135/66 Pulse Oximetry 100 100 100 08/18/20 09:15 08/18/20 09:30 08/18/20 09:45 Temperature 97.7 F Pulse Rate 77 76 89 Respiratory Rate 24 22 30 H Blood Pressure 128/64 127/62 Pulse Oximetry 100 100 95 08/18/20 09:46 08/18/20 10:00 08/18/20 10:15 Temperature Pulse Rate 85 76 72 Respiratory Rate 27 H 29 H 24 Blood Pressure 146/71 H 134/63 131/67 Pulse Oximetry 94 100 100 08/18/20 10:30 08/18/20 10:45 08/18/20 11:00 Temperature 98.3 F Pulse Rate 79 80 80 Respiratory Rate 25 H 27 H 27 H Blood Pressure 138/76 141/72 H 139/76 Pulse Oximetry 100 100 100 08/18/20 11:15 08/18/20 11:16 08/18/20 12:11 Temperature 99.4 F Pulse Rate 90 87 100 H Respiratory Rate 29 H 25 H 30 H Blood Pressure 158/74 H 155/111 H Pulse Oximetry 100 100 97 Oxygen Delivery Method Nasal Cannula Oxygen Flow Rate 2 Objective Labs Result Diagrams: 08/18/20 06:45 08/18/20 06:45 Labs: Laboratory Results - last 24 hr 08/18/20 08/18/20 08/18/20 06:45 06:45 06:45 WBC 13.3 H RBC 3.13 L Hgb 7.7 L Hct 24.9 L MCV 79.5 L MCH 24.6 L MCHC 30.9 RDW 18.9 H Plt Count 291 Neut % (Auto) 78.3 H Lymph % (Auto) 14.8 L [place] % (Auto) 5.1 Eos % (Auto) 0.9 L Baso % (Auto) 0.9 Neut # (Auto) 71718 H Lymph # (Auto) 2000 [place] # (Auto) 700 Eos # (Auto) 100 Baso # (Auto) 100 Platelet Estimate Adequate on smear Plt Morphology Comment RBC Morphology See below Polychromasia 1+ H Hypochromasia 1+ H Poikilocytosis 2+ H Anisocytosis 2+ H Target Cells 1+ H PT 11.5 INR 1.0 APTT 29 Sodium 131 L Potassium 4.7 Chloride 102 Carbon Dioxide 30 BUN 18 H Creatinine 0.39 L Estimated GFR > 60.0 BUN/Creatinine Ratio 46.2 H Glucose 132 H Lactate Calcium 9.6 Total Bilirubin 0.8 AST 84 H ALT 19 Alkaline Phosphatase 997 H Troponin I < 0.012 Total Protein 7.0 Albumin 3.7 Globulin 3.3 Albumin/Globulin Ratio 1.1 Chlamy pneumoniae PCR Adenovirus (PCR) B.parapertussis DNA PCR Coronavirus OC43 (PCR) Coronavirus HKU1 (PCR) Coronavirus 229E (PCR) SARS-CoV-2 (PCR) Coronavirus NL63 (PCR) Human Metapneumovir PCR Influenza Type A (PCR) Influenza Type B (PCR) M. pneumoniae (PCR) Parainfluenza 1 (PCR) Parainfluenza 2 (PCR) Parainfluenza 3 (PCR) Parainfluenza 4 (PCR) RSV (PCR) Entero/Rhino (PCR) Blood Type Antibody Screen Crossmatch 08/18/20 08/18/20 08/18/20 06:45 06:55 07:25 WBC RBC Hgb Hct MCV MCH MCHC RDW Plt Count Neut % (Auto) Lymph % (Auto) [place] % (Auto) Eos % (Auto) Baso % (Auto) Neut # (Auto) Lymph # (Auto) [place] # (Auto) Eos # (Auto) Baso # (Auto) Platelet Estimate Plt Morphology Comment RBC Morphology Polychromasia Hypochromasia Poikilocytosis Anisocytosis Target Cells PT INR APTT Sodium Potassium Chloride Carbon Dioxide BUN Creatinine Estimated GFR BUN/Creatinine Ratio Glucose Lactate 1.1 Calcium Total Bilirubin AST ALT Alkaline Phosphatase Troponin I Total Protein Albumin Globulin Albumin/Globulin Ratio Chlamy pneumoniae PCR Adenovirus (PCR) B.parapertussis DNA PCR Coronavirus OC43 (PCR) Coronavirus HKU1 (PCR) Coronavirus 229E (PCR) SARS-CoV-2 (PCR) Negative Coronavirus NL63 (PCR) Human Metapneumovir PCR Influenza Type A (PCR) Influenza Type B (PCR) M. pneumoniae (PCR) Parainfluenza 1 (PCR) Parainfluenza 2 (PCR) Parainfluenza 3 (PCR) Parainfluenza 4 (PCR) RSV (PCR) Entero/Rhino (PCR) Blood Type B Positive Antibody Screen Negative Crossmatch See Detail 08/18/20 09:18 WBC RBC Hgb Hct MCV MCH MCHC RDW Plt Count Neut % (Auto) Lymph % (Auto) [place] % (Auto) Eos % (Auto) Baso % (Auto) Neut # (Auto) Lymph # (Auto) [place] # (Auto) Eos # (Auto) Baso # (Auto) Platelet Estimate Plt Morphology Comment RBC Morphology Polychromasia Hypochromasia Poikilocytosis Anisocytosis Target Cells PT INR APTT Sodium Potassium Chloride Carbon Dioxide BUN Creatinine Estimated GFR BUN/Creatinine Ratio Glucose Lactate Calcium Total Bilirubin AST ALT Alkaline Phosphatase Troponin I Total Protein Albumin Globulin Albumin/Globulin Ratio Chlamy pneumoniae PCR Not detected Adenovirus (PCR) Not detected B.parapertussis DNA PCR Not detected Coronavirus OC43 (PCR) Not detected Coronavirus HKU1 (PCR) Not detected Coronavirus 229E (PCR) Not detected SARS-CoV-2 (PCR) Not detected Coronavirus NL63 (PCR) Not detected Human Metapneumovir PCR Not detected Influenza Type A (PCR) Not detected Influenza Type B (PCR) Not detected M. pneumoniae (PCR) Not detected Parainfluenza 1 (PCR) Not detected Parainfluenza 2 (PCR) Not detected Parainfluenza 3 (PCR) Not detected Parainfluenza 4 (PCR) Not detected RSV (PCR) Not detected Entero/Rhino (PCR) Not detected Blood Type Antibody Screen Crossmatch Quality VTE Deep Vein Thrombosis/Pulmonary Embolism Present on Admission: No
[2020-08-18 14:40] LABS: Appearance Urine UA CLEAR; Bilirubin Urine UA NEGATIVE (NEGATIVE); Color Urine UA YELLOW; Glucose Urine UA NEGATIVE (Negative); Ketones Urine UA NEGATIVE (NEGATIVE); Leukocyte Esterase Urine UA NEGATIVE (NEGATIVE); Nitrite Urine UA NEGATIVE (Negative); Occult Blood Urine UA 1+ (Negative); Protein Urine UA 1+ (Negative); Specific Gravity Urine UA 1.015 (1.000-1.035); Urobilinogen Urine UA 0.2 E.U./dL (0.2)
[2020-08-18 14:48] LABS: Amorphous Sediment Urine 1+; Mucus Urine 1+ (Negative); RBC Urine 1-5/HPF (0-5/HPF); Squamous Epithelial Cell Urine 1-5 /HPF (0-5/HPF); WBC Urine 1-5/HPF (0-5/HPF)
[2020-08-18 14:49] LABS: Bacteria Urine Occasional (0-1); Culture Indicated Urine Cult Not Indicated
[2020-08-18] MEDS: SODIUM CHLORIDE 0.9% 1,000 ML 125 ML IV (15:01)
[2020-08-18] MEDS: GABAPENTIN 100 MG CAPSULE PO ×2 (15:01→21:56)
--- NOTE | 2020-08-18 15:22 | P.HP_ITS ---
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 She was seen by Dr. Moore recently for chemo. The patient is chronically on oxygen. In June she was hospitalized at [facility] for COVID pneumonia and bacterial pneumonia. The patient was discharged home. She presented to the emergency room today because she was not feeling well. She complained of increased weakness. The patient was hypotensive at that time 92/49. She was afebrile. She was found to have black stools for the past week. Patient previously had been on prednisone as part of her chemotherapy. But more importantly she has been taking ibuprofen 600 mg every 6 hours alternating with Tylenol for chronic bony pain. She denies any hematemesis. She has had no vomiting. No fever or chills. She has lost 16 lb over the past 7 months. The patient denies any headache blurred vision double vision. She denies any shortness of breath although is chronically on oxygen. She denies any abdominal pain, dysuria hematuria or pyuria. Patient was found to be guaiac-positive in the emergency room with dark stool. In addition she was found to be anemic with a hemoglobin of 7.7 hematocrit of 24. Her last H&H was 9.8 and 31.8. Patient was admitted to the hospital for treatment of acute blood loss anemia and likely an upper GI bleed. Patient History Medical History (Updated 08/18/20 @ 15:29 by Karla Peterson MD) Cancer Chronic anemia Chronic respiratory failure Hypertension Metastatic lung cancer (metastasis from lung to other site) Pneumonia due to COVID-19 virus Surgical History (Updated 08/18/20 @ 06:52 by Adilene Manley DO) H/O pneumonectomy Family & Social History Family History (Updated 08/18/20 @ 15:30 by Karla Peterson MD) Father Natural with unknown cause Social History: household members spouse Prior Living Arrangements House Safety & Behavioral: Feels Safe in Current Yes Environment Been Physically Hurt or No Threatened By a Person Suicidal Ideation Description None Suicide Plan Description No Plan Tobacco & Substance use: Smoking Status Never smoker alcohol intake never Substance Use Type does not use Meds Home Medications and Allergies Home Medications Medication Instructions Recorded Confirmed Type amlodipine [Norvasc] 5 mg PO DAILY 08/18/20 08/18/20 History gabapentin 100 mg PO TID 08/18/20 08/18/20 History ibuprofen 600 mg PO BID PRN 08/18/20 08/18/20 History lorlatinib 25 mg PO DAILY 08/18/20 08/18/20 History metoprolol tartrate 25 mg PO BID 08/18/20 08/18/20 History Allergies Allergy/AdvReac Type Severity Reaction Status Date / Time No Known Drug Allergies Allergy Verified 08/18/20 07:47 Review of Systems Review of Systems ROS: Yes All systems reviewed with the patient and are negative except as otherwise documented Exam Vital Signs (past 8 hours): - 08/18/20 08:36 08/18/20 08:51 08/18/20 08:58 Temperature 97.8 F 97.8 F Pulse Rate 83 80 80 Respiratory Rate 22 16 16 Blood Pressure 171/81 H 171/81 H 150/67 H Pulse Oximetry 100 100 08/18/20 09:02 08/18/20 09:12 08/18/20 09:13 Temperature 97.7 F 98.2 F Pulse Rate 79 78 78 Respiratory Rate 18 22 25 H Blood Pressure 138/64 158/74 H 135/66 Pulse Oximetry 100 100 100 08/18/20 09:15 08/18/20 09:30 08/18/20 09:45 Temperature 97.7 F Pulse Rate 77 76 89 Respiratory Rate 24 22 30 H Blood Pressure 128/64 127/62 Pulse Oximetry 100 100 95 08/18/20 09:46 08/18/20 10:00 08/18/20 10:15 Temperature Pulse Rate 85 76 72 Respiratory Rate 27 H 29 H 24 Blood Pressure 146/71 H 134/63 131/67 Pulse Oximetry 94 100 100 08/18/20 10:30 08/18/20 10:45 08/18/20 11:00 Temperature 98.3 F Pulse Rate 79 80 80 Respiratory Rate 25 H 27 H 27 H Blood Pressure 138/76 141/72 H 139/76 Pulse Oximetry 100 100 100 08/18/20 11:15 08/18/20 11:16 08/18/20 12:11 Temperature 99.4 F Pulse Rate 90 87 100 H Respiratory Rate 29 H 25 H 30 H Blood Pressure 158/74 H 155/111 H Pulse Oximetry 100 100 97 08/18/20 14:34 Temperature Pulse Rate Respiratory Rate Blood Pressure Pulse Oximetry 98 Oxygen Delivery Method Nasal Cannula Oxygen Flow Rate 2 Narrative Exam Narrative: Frail elderly female who is uncomfortable moaning in pain HEENT: Normocephalic atraumatic extraocular muscles are intact oropharynx reveals dry mucous members neck is soft Lungs: Decreased breath sounds, scattered rhonchi over the right lung, decrea sed breath sounds over the left lung Cardiac exam regular rate and rhythm normal S1-S2 with a 2/6 systolic ejection murmur Abdomen: Soft nontender nondistended no appreciable hepatosplenomegaly no pa lpable mass Extremities: No edema Neuro exam: Cranial nerves 2-12 are intact, strength is symmetric and equal, sensation grossly intact reflexes are equal Psychiatric exam: Patient is awake and alert, answers questions appropriately Objective Labs Result Diagrams: 08/18/20 06:45 08/18/20 06:45 Labs: Laboratory Results - last 24 hr 08/18/20 08/18/20 08/18/20 06:45 06:45 06:45 WBC 13.3 H RBC 3.13 L Hgb 7.7 L Hct 24.9 L MCV 79.5 L MCH 24.6 L MCHC 30.9 RDW 18.9 H Plt Count 291 Neut % (Auto) 78.3 H Lymph % (Auto) 14.8 L [place] % (Auto) 5.1 Eos % (Auto) 0.9 L Baso % (Auto) 0.9 Neut # (Auto) 75525 H Lymph # (Auto) 2000 [place] # (Auto) 700 Eos # (Auto) 100 Baso # (Auto) 100 Platelet Estimate Adequate on smear Plt Morphology Comment RBC Morphology See below Polychromasia 1+ H Hypochromasia 1+ H Poikilocytosis 2+ H Anisocytosis 2+ H Target Cells 1+ H PT 11.5 INR 1.0 APTT 29 Sodium 131 L Potassium 4.7 Chloride 102 Carbon Dioxide 30 BUN 18 H Creatinine 0.39 L Estimated GFR > 60.0 BUN/Creatinine Ratio 46.2 H Glucose 132 H Lactate Calcium 9.6 Total Bilirubin 0.8 AST 84 H ALT 19 Alkaline Phosphatase 997 H Troponin I < 0.012 Total Protein 7.0 Albumin 3.7 Globulin 3.3 Albumin/Globulin Ratio 1.1 Urine Color Urine Appearance Urine pH Ur Specific Coello Urine Protein Urine Glucose (UA) Urine Ketones Urine Occult Blood Urine Nitrate Urine Bilirubin Urine Urobilinogen Ur Leukocyte Esterase Urine RBC Urine WBC Ur Squamous Epith Cells Amorphous Sediment Urine Bacteria Urine Mucus Ur Culture Indicated? Chlamy pneumoniae PCR Adenovirus (PCR) B.parapertussis DNA PCR Coronavirus OC43 (PCR) Coronavirus HKU1 (PCR) Coronavirus 229E (PCR) SARS-CoV-2 (PCR) Coronavirus NL63 (PCR) Human Metapneumovir PCR Influenza Type A (PCR) Influenza Type B (PCR) M. pneumoniae (PCR) Parainfluenza 1 (PCR) Parainfluenza 2 (PCR) Parainfluenza 3 (PCR) Parainfluenza 4 (PCR) RSV (PCR) Entero/Rhino (PCR) Blood Type Antibody Screen Crossmatch 08/18/20 08/18/20 08/18/20 06:45 06:55 07:25 WBC RBC Hgb Hct MCV MCH MCHC RDW Plt Count Neut % (Auto) Lymph % (Auto) [place] % (Auto) Eos % (Auto) Baso % (Auto) Neut # (Auto) Lymph # (Auto) [place] # (Auto) Eos # (Auto) Baso # (Auto) Platelet Estimate Plt Morphology Comment RBC Morphology Polychromasia Hypochromasia Poikilocytosis Anisocytosis Target Cells PT INR APTT Sodium Potassium Chloride Carbon Dioxide BUN Creatinine Estimated GFR BUN/Creatinine Ratio Glucose Lactate 1.1 Calcium Total Bilirubin AST ALT Alkaline Phosphatase Troponin I Total Protein Albumin Globulin Albumin/Globulin Ratio Urine Color Urine Appearance Urine pH Ur Specific Coello Urine Protein Urine Glucose (UA) Urine Ketones Urine Occult Blood Urine Nitrate Urine Bilirubin Urine Urobilinogen Ur Leukocyte Esterase Urine RBC Urine WBC Ur Squamous Epith Cells Amorphous Sediment Urine Bacteria Urine Mucus Ur Culture Indicated? Chlamy pneumoniae PCR Adenovirus (PCR) B.parapertussis DNA PCR Coronavirus OC43 (PCR) Coronavirus HKU1 (PCR) Coronavirus 229E (PCR) SARS-CoV-2 (PCR) Negative Coronavirus NL63 (PCR) Human Metapneumovir PCR Influenza Type A (PCR) Influenza Type B (PCR) M. pneumoniae (PCR) Parainfluenza 1 (PCR) Parainfluenza 2 (PCR) Parainfluenza 3 (PCR) Parainfluenza 4 (PCR) RSV (PCR) Entero/Rhino (PCR) Blood Type B Positive Antibody Screen Negative Crossmatch See Detail 08/18/20 08/18/20 09:18 14:35 WBC RBC Hgb Hct MCV MCH MCHC RDW Plt Count Neut % (Auto) Lymph % (Auto) [place] % (Auto) Eos % (Auto) Baso % (Auto) Neut # (Auto) Lymph # (Auto) [place] # (Auto) Eos # (Auto) Baso # (Auto) Platelet Estimate Plt Morphology Comment RBC Morphology Polychromasia Hypochromasia Poikilocytosis Anisocytosis Target Cells PT INR APTT Sodium Potassium Chloride Carbon Dioxide BUN Creatinine Estimated GFR BUN/Creatinine Ratio Glucose Lactate Calcium Total Bilirubin AST ALT Alkaline Phosphatase Troponin I Total Protein Albumin Globulin Albumin/Globulin Ratio Urine Color Yellow Urine Appearance Clear Urine pH 7.0 Ur Specific Coello 1.015 Urine Protein 1+ H Urine Glucose (UA) Negative Urine Ketones Negative Urine Occult Blood 1+ H Urine Nitrate Negative Urine Bilirubin Negative Urine Urobilinogen 0.2 Ur Leukocyte Esterase Negative Urine RBC 1-5/hpf Urine WBC 1-5/hpf Ur Squamous Epith Cells 1-5 /hpf Amorphous Sediment 1+ Urine Bacteria Occasional (0-1) Urine Mucus 1+ H Ur Culture Indicated? Cult not indicated Chlamy pneumoniae PCR Not detected Adenovirus (PCR) Not detected B.parapertussis DNA PCR Not detected Coronavirus OC43 (PCR) Not detected Coronavirus HKU1 (PCR) Not detected Coronavirus 229E (PCR) Not detected SARS-CoV-2 (PCR) Not detected Coronavirus NL63 (PCR) Not detected Human Metapneumovir PCR Not detected Influenza Type A (PCR) Not detected Influenza Type B (PCR) Not detected M. pneumoniae (PCR) Not detected Parainfluenza 1 (PCR) Not detected Parainfluenza 2 (PCR) Not detected Parainfluenza 3 (PCR) Not detected Parainfluenza 4 (PCR) Not detected RSV (PCR) Not detected Entero/Rhino (PCR) Not detected Blood Type Antibody Screen Crossmatch Assessment & Plan Assessment & Plan narrative: Impression 1. 75-year-old female admitted to the hospital for generalized weakness most likely due to an acute blood loss anemia -patient had a drop of her hemoglobin and hematocrit from 9.8 g to 7.7 g over the past 2 weeks -she reports taking ibuprofen 600 mg every 6 hours for chronic pain from her metastatic disease, this likely is led to gastritis versus peptic ulcer disease -patient is guaiac-positive, with dark stool, although no hematemesis -patient initially was hypotensive which has improved -given her left pneumonectomy she is at higher risk for upper endoscopy -patient received 1 unit of blood, will recheck hemoglobin hematocrit, if hemoglobin is less than 10 will transfuse a 2nd unit -will continue proton pump inhibitor, Pro tonix 40 mg IV twice daily -will obtain serial hemoglobin hematocrit, if there is no active bleeding will defer endoscopy at this time, the patient continues to show evidence of active bleeding will anticipate endoscopy prior to discharge 2. Metastatic lung cancer -patient with bony Mets in significant pain -she currently is undergoing immunotherapy with Oncology -will discontinue ibuprofen, continue Tylenol, and start oxycodone 5 mg q.6 hours as needed as needed 3. Chronic hypoxic respiratory failure -will continue oxygen at 2 L -no suggestion of new pneumonia at this time -patient was treated for COVID-19 pneumonia July 18 and was COVID negati ve at that time. Her COVID screening exam is negative at this time -patient was recently treated for bacterial pneumonia, no evidence of pneumonia at this time 4. Hypertension -will continue amlodipine and metoprolol 5. Suspect severe protein calorie malnutrition given her 16 lb weight loss -this puts the patient at high risk for morbidity and mortality from respiratory and or GI issues -she is placed on a clear liquid diet at this time given her probable upper GI bleed, will ask for Nutrition consult as her weight loss is concerned Patient's surrogate is her , who is at the bedside. Patient indicates she is a full code and will note that her record accordingly Patient will be admitted as an inpatient and is anticipated to be in the hospital greater than 48 hours Given her acute blood loss anemia and probable GI bleed she will not be placed on pharmacologic prophylaxis for DVT, patient will be placed on SCDs instead Quality VTE Deep Vein Thrombosis/Pulmonary Embolism Present on Admission: No
[2020-08-18 15:36] LABS: Hematocrit 29.5 % (36-46); Hemoglobin 9.1 g/dL (12.0-16.0)
[2020-08-18] MEDS: AMLODIPINE 5 MG TABLET PO (16:20)
[2020-08-18] MEDS: DEXTROSE 5%-LACTATED RINGERS 1,000 ML 84 ML IV (16:20)
[2020-08-18] MEDS: LORLATINIB 25 MG 25 EACH PO (21:56)
[2020-08-18] MEDS: METOPROLOL IR 25 MG TABLET PO (21:56)
[2020-08-18] MEDS: SODIUM CHLORIDE 0.9% FLUSH 10 ML IV ×2 (21:57→22:20)
[2020-08-19] VITALS (8 sets, daily range): BP systolic 108–159; BP diastolic 56–92; PULSE 73–116; RESP 18–21; TEMP 36.6–37.1; O2SAT 93–100
[2020-08-19 06:00] LABS: Hematocrit 27.5 % (36-46); Hemoglobin 8.9 g/dL (12.0-16.0); Mean Corpuscular HGB Conc 32.2 % (30-36); Mean Corpuscular Hemoglobin 26.3 PG (26-34); Mean Corpuscular Volume 81.8 fL (80-100); Platelet Count 258 X10^3/uL (150-400); Red Blood Cell Count 3.37 X10^6/uL (4.0-5.2); Red Cell Distribution Width 17.9 % (11.6-14.8); White Blood Cell Count 11.3 X10^3/uL (4.5-11.0)
[2020-08-19] MEDS: MORPHINE 2 MG/ML INJ IV (06:01)
[2020-08-19 06:05] LABS: Add Manual Diff / Slide Review YES
[2020-08-19 06:31] LABS: Alanine Aminotransferase 14 IU/L (<35); Albumin 3.4 g/dL (3.5-5.0); Alkaline Phosphatase 817 U/L (38-126); Aspartate Aminotransferase 55 IU/L (14-36); BUN Creatinine Ratio 34.1 (6-22); Bilirubin Total 0.4 mg/dL (0.2-1.3); Blood Urea Nitrogen 15 mg/dL (7-17); Calcium 9.5 mg/dL (8.4-10.2); Carbon Dioxide 32 mmol/L (22-32); Chloride 103 mmol/L (98-107); Estimated Glomerular Filt Rate > 60.0 mL/min (>60); Globulin 3.3 g/dL (1.7-4.1); Glucose 108 mg/dL (80-110); HEMOLYSIS < 15 (0-50); Sodium 134 mmol/L (137-145); Total Protein 6.7 g/dL (6.3-8.2)
[2020-08-19 06:40] LABS: NT-proBNP (BNP-Adult 18+) 501 pg/mL (<450)
[2020-08-19 07:20] LABS: Anisocytosis 2+; Neutrophils Absolute Manual 8588 /uL (3000-5900); Poikilocytosis 2+; Polychromasia 2+; Total Cells Counted 100
[2020-08-19 07:22] LABS: Target Cells 1+
[2020-08-19] MEDS: OXYCODONE IR 5 MG TABLET PO ×3 (08:44→18:15)
[2020-08-19] MEDS: PANTOPRAZOLE 40 MG VIAL IV ×2 (08:46→20:29)
[2020-08-19] MEDS: GABAPENTIN 100 MG CAPSULE PO ×3 (08:46→20:29)
[2020-08-19] MEDS: SODIUM CHLORIDE 0.9% FLUSH 10 ML IV ×3 (08:50→20:29)
[2020-08-19] MEDS: LORLATINIB 25 MG 50 EACH PO (08:51)
--- NOTE | 2020-08-19 10:34 | PC.NURSE ---
James catheter removed per orders. Patient tolerated.
--- NOTE | 2020-08-19 13:19 | PT.IIE ---
Surgical History (Last Updated 08/18/20 @ 06:52 by Adilene Manley DO) H/O pneumonectomy Medical History (Last Updated 08/18/20 @ 15:29 by Karla Peterson MD) Cancer Chronic anemia Chronic respiratory failure Hypertension Metastatic lung cancer (metastasis from lung to other site) Pneumonia due to COVID-19 virus Physical Therapy Inpatient Evaluation/Re-Eval M1 PT/OT-IP Prior Functional Status Start: 08/19/20 10:10 Freq: NEEDED Status: Active Protocol: Document 08/19/20 13:19 AW (Rec: 08/19/20 14:06 AW [id number]) Medical Review Prior Functional Status Medical History Reviewed Yes Communication WNL. Pt is an effective verbal communicator. Mobility and Gait Pt is undergoing treatment for lung cancer with mets to bone . She was hospitalized in June at [facility] with COVID pneumonia. Pt reports independent mobility up until one month ago but her mobility has declined since that time. She states she has not walked in a month. She is getting around in a manual wheelchair and her and son assist her with transfers . Pt's and son assist with all mobility at this time . Activities of Daily Living and IADL's Pt reports independence with dressing herself. She has some sort of assist/bath aide to help with bathing. Pt has been using a BSC with assist to transfer but she completes her own hygiene. Social History Household Members spouse Living Arrangements House Number of Floors (Floors) One Floor Number of Stairs To Enter/Railing? level entrance, no stairs Home Environment Standard Height Toilet,Tub/ Shower Home Equipment Front Wheel Walker,Four Wheel Walker,Straight Cane,Manual Wheelchair,Bedside Commode, Shower Seat without Backrest, Hand Held Shower,Grab Bars Near Toilet,Grab Bars In Shower Additional Social History Comment Pt lives with her spouse, Carlos , in [place]. They have 10 children. M2 PT-IP Current Condition Start: 08/19/20 10:10 Freq: NEEDED Status: Active Protocol: Document 08/19/20 13:19 AW (Rec: 08/19/20 14:06 AW [id number]) Physical Therapy Current Condition Current Condition Evaluation Date 08/19/20 Treatment Diagnosis anemia, upper GI bleed; difficulty in walking Onset Date 08/17/20 M3 PT-IP Subjective Start: 08/19/20 10:10 Freq: NEEDED Status: Active Protocol: Document 08/19/20 13:19 AW (Rec: 08/19/20 14:06 AW [id number]) Subjective Physical Therapy Visit Type Type Initial Evaluation Visit Start Time 11:14 Visit Stop Time 13:19 Total Visit Minutes 51 Notes Pt seen for split visits 1114- 1148 and [id number] to allow for pain physical medicine physician. Physical Therapy Visit Comments Patient Comments Pt is willing to participate with PT. Patient Goals Return home with family support. Therapy Pain Assessment Pain When Pain Assessed During Mobility Pain Present Pain Present Pain Reported Location diffuse lower extremities Scale Used not quantified Pain Behaviors Crying,Holding Area, Restlessness,Wincing Pain Management Techniques Modification of Treatment,Re- positioning,Timing of Activity with Medications M4 PT-IP Mobility and Gait Start: 08/19/20 10:10 Freq: NEEDED Status: Active Protocol: Document 08/19/20 13:19 AW (Rec: 08/19/20 14:06 AW [id number]) PT-Bed Mobility Assessment Supine to Sit Supine to Sit Minimal Assistance,1 Person Assistance,Head of Bed Elevated Sit to Supine Sit to Supine Minimal Assistance,1 Person Assistance Scooting Scooting to Edge of Bed Contact Guard Assistance PT-Transfer Assessment Sit to and From Stand Sit to and from Stand Minimal Assistance,1 Person Assistance,Use of Upper Extremities Equipment Transfer Assistive Device Gait Belt,Front Wheeled Walker Orthotic/Prosthetic Devices or Brace: No Transfers Transfer Destination Bed,Bedside Commode Transfer Technique Stand Step Pivot Transfer Ability Level of Assist Minimal Assistance,1 Person Assistance,Use of Upper Extremities Comments Mobility Comments Pt was lying in the bed on her right side as PT arrived. BP was 137/92 HR 85 SpO2 87% on room air (NC had moved out of nares). PT supplied O2 via NC and sats kalyan to 95% on 2L/min She needed min assist to pull up to long sitting and began to move her legs to the right side of the bed but complained of too much pain (diffusely in BLE) and returned to sidelying, now on her left side. PT left as RN administered pain meds. When PT returned, pt again needed min assist to pull up to long sitting and was then able to scoot to EOB CGA. Pt stood from the bed using FWW and min assist and transferred to the [facility] set up on her left side min A x 1. Pt complained of dizziness in sitting. BP was 153/90 HR 109. Pt independently completed toilet hygiene. She refused any attempt to ambulate. Instead, she transferred back to the bed and to supine min A x 1 using the FWW. During the transfer, pt needed cues to maintain contact with the FWW as she tended to reach for the bed too soon. Pt was positioned with call light and all needs in reach and bed alarm on for safety. Gait Assessment Comments Gait Comments Transfer only. See mobility comments. Stair Climbing Assessment Comments Stair Climbing Comments Not assessed. No stairs at home. PT-Balance Assessment Sitting Balance and Reactions Static Sitting Balance Ability Fair Dynamic Sitting Balance Ability Fair Standing Balance and Reactions Static Standing Balance Ability Poor Dynamic Standing Balance Ability Poor Device Used FWW M5 PT-IP Objective Assessments Start: 08/19/20 10:10 Freq: NEEDED Status: Active Protocol: Document 08/19/20 13:19 AW (Rec: 08/19/20 14:06 AW [id number]) Orientation Orientation/Cognition Level of Alertness Lethargic Orientation Name,Place,Situation Language Function Ability No Deficits Noted,Yi as Second Language Safety Awareness Decreased Safety Awareness Gross Range of Motion Lower Extremity ROM Assessment Within Functional Limits Strength Lower Extremity Strength Assessment Bilaterally Impaired Hip 3/5 Knee 3+/5 Sensation Assessment Sensation Gross Sensation WNL Comments Sensation Comments Pt denies any sensation disturbance M6 PT-IP Treatment Start: 08/19/20 10:10 Freq: NEEDED Status: Active Protocol: Document 08/19/20 13:19 AW (Rec: 08/19/20 14:06 AW [id number]) Physical Therapy Treatment Education Education Provided Safety Other Treatments Other Treatment Performed Provided education on role of PT, plan of care, importance of continued mobility, and safe use of FWW. M7 PT-IP Assessment and Plan Start: 08/19/20 10:10 Freq: NEEDED Status: Active Protocol: Document 08/19/20 13:19 AW (Rec: 08/19/20 14:06 AW [id number]) PT Summary Assessment and Plan Potential Rehabilitation Potential Fair Status of Condition at Evaluation Evolving Summary Impairments Pain,Strength,Balance,Bed Mobility,Transfers,Gait, Activity Tolerance Assessment Summary Gerda is a 75 yo woman seen for PT evaluation with admitting diagnosis of anemia secondary to upper GI bleed. She has lung cancer with mets to bone and is currently undergoing treatment at [facility]. She had COVID pneumonia a month ago and reports declining mobility since that time. She has not walked in a month, essentially mobilizing in a manual wheelchair with her and son assisting with transfers. On evaluation, pt reported high levels of diffuse BLE pain and required min assist with bed mobility and transfers. She declined further mobility due to pain and inability to tolerate much activity. Pt would benefit from subacute rehab but she and her family are adamantly opposed to SNF rehab. PT recommends pt return home with assist from family. If she qualifies, she would benefit from home health PT to improve strength and mobility. Goals Bed Mobility Goal Contact Guard Assistance Transfer Goal Contact Guard Assistance,Front Wheeled Walker Gait Goal Contact Guard Assistance,Front Wheel Walker Gait Distance 20 Days to Meet Goals 5 Frequency of Treatment Frequency Of Treatment Once a Day Treatment Plan Physical Therapy Treatment Plan Bed Mobility Training,Transfer Training,Gait Training, Therapeutic Exercise,Balance Retraining,Discharge Planning, Hot or Cold Pack Recommendations To Nursing Amount of Assist Needed 1 Person Assist Discharge Recommendations PT Discharge Recommendations Home with 12/01 Assist Available,Home Health Transportation Needs at Discharge Private Vehicle
--- NOTE | 2020-08-19 13:59 | PM.PN.1 ---
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 The patient was found to be anemic. She received a transfusion of 1 unit of blood with improvement of her hemoglobin 8.9. She continues to complain of significant pain, bony pain. This interferes in her ability to be mobile. She was able to work with physical therapy with minimal assist but has significant pain with any movement. Exam Vital Signs (past 8 hours): - 08/19/20 08:00 08/19/20 08:40 08/19/20 12:00 Temperature 98.7 F 98.0 F Pulse Rate 86 76 90 Respiratory Rate 18 18 19 Blood Pressure 138/76 137/92 H Pulse Oximetry 96 93 100 Oxygen Delivery Method Nasal Cannula Oxygen Flow Rate 2 Narrative Exam Narrative: Ill-appearing elderly female lying in bed lungs: Decreased breath sounds on the left, normal breath sounds on the right cardiac exam regular rate and rhythm normal S1-S2 with a 2/6 systolic ejection murmur abdomen: Soft nontender nondistended extremities: No edema Objective Labs Result Diagrams: 08/19/20 05:30 08/19/20 05:30 Labs: Laboratory Results - last 24 hr 08/18/20 08/18/20 08/19/20 14:35 15:30 05:30 WBC 11.3 H RBC 3.37 L Hgb 9.1 L 8.9 L Hct 29.5 L 27.5 L MCV 81.8 MCH 26.3 MCHC 32.2 RDW 17.9 H Plt Count 258 Neut % (Auto) Not Reportable Lymph % (Auto) Not Reportable [place] % (Auto) Not Reportable Eos % (Auto) Not Reportable Baso % (Auto) Not Reportable Lymph # (Auto) Not Reportable [place] # (Auto) Not Reportable Baso # (Auto) Not Reportable Total Counted 100 Seg Neutrophils % 72.0 H Band Neutrophils % 4.0 Lymphocytes % (Manual) 12.0 L Atypical Lymphs % 5.0 H Monocytes % (Manual) 4.0 Eosinophils % (Manual) 1.0 L Basophils % (Manual) 2.0 H Neutrophils # (Manual) 8588 H RBC Morphology See below Polychromasia 2+ H Poikilocytosis 2+ H Anisocytosis 2+ H Target Cells 1+ H Sodium Potassium Chloride Carbon Dioxide BUN Creatinine Estimated GFR BUN/Creatinine Ratio Glucose Calcium Total Bilirubin AST ALT Alkaline Phosphatase NT-Pro-B Natriuret Pep Total Protein Albumin Globulin Albumin/Globulin Ratio Urine Color Yellow Urine Appearance Clear Urine pH 7.0 Ur Specific [place] 1.015 Urine Protein 1+ H Urine Glucose (UA) Negative Urine Ketones Negative Urine Occult Blood 1+ H Urine Nitrate Negative Urine Bilirubin Negative Urine Urobilinogen 0.2 Ur Leukocyte Esterase Negative Urine RBC 1-5/hpf Urine WBC 1-5/hpf Ur Squamous Epith Cells 1-5 /hpf Amorphous Sediment 1+ Urine Bacteria Occasional (0-1) Urine Mucus 1+ H Ur Culture Indicated? Cult not indicated 08/19/20 05:30 WBC RBC Hgb Hct MCV MCH MCHC RDW Plt Count Neut % (Auto) Lymph % (Auto) [place] % (Auto) Eos % (Auto) Baso % (Auto) Lymph # (Auto) [place] # (Auto) Baso # (Auto) Total Counted Seg Neutrophils % Band Neutrophils % Lymphocytes % (Manual) Atypical Lymphs % Monocytes % (Manual) Eosinophils % (Manual) Basophils % (Manual) Neutrophils # (Manual) RBC Morphology Polychromasia Poikilocytosis Anisocytosis Target Cells Sodium 134 L Potassium 4.0 Chloride 103 Carbon Dioxide 32 BUN 15 Creatinine 0.44 L Estimated GFR > 60.0 BUN/Creatinine Ratio 34.1 H Glucose 108 Calcium 9.5 Total Bilirubin 0.4 AST 55 H ALT 14 Alkaline Phosphatase 817 H NT-Pro-B Natriuret Pep 501 H Total Protein 6.7 Albumin 3.4 L Globulin 3.3 Albumin/Globulin Ratio 1.0 Urine Color Urine Appearance Urine pH Ur Specific [place] Urine Protein Urine Glucose (UA) Urine Ketones Urine Occult Blood Urine Nitrate Urine Bilirubin Urine Urobilinogen Ur Leukocyte Esterase Urine RBC Urine WBC Ur Squamous Epith Cells Amorphous Sediment Urine Bacteria Urine Mucus Ur Culture Indicated? PFS Medical History (Updated 08/18/20 @ 15:29 by Karla Peterson MD) Cancer Chronic anemia Chronic respiratory failure Hypertension Metastatic lung cancer (metastasis from lung to other site) Pneumonia due to COVID-19 virus Surgical History (Updated 08/18/20 @ 06:52 by Adilene Manley DO) H/O pneumonectomy Family History (Updated 08/18/20 @ 15:30 by Karla Peterson MD) Father Natural with unknown cause Social History household members: spouse Smoking Status: Never smoker alcohol intake: never Assessment & Plan Assessment & Plan narrative: 1. 75-year-old female admitted to the hospital for generalized weakness most likely due to an acute blood loss anemia -patient had a drop of her hemoglobin and hematocrit from 9.8 g to 7.7 g over the past 2 weeks -she reports taking ibuprofen 600 mg every 6 hours for chronic pain from her metastatic disease, this likely is led to gastritis versus peptic ulcer disease -patient is guaiac-positive, with dark stool, although no hematemesis -patient initially was hypotensive which has improved -given her left pneumonectomy she is at higher risk for upper endoscopy -patient received 1 unit of blood, will recheck hemoglobin hematocrit, if hemoglobin is less than 10 will transfuse a 2nd unit -will continue proton pump inhibitor, Pro tonix 40 mg IV twice daily -will obtain serial hemoglobin hematocrit, if there is no active bleeding will defer endoscopy at this time, the patient continues to show evidence of active bleeding will anticipate endoscopy prior to discharge - patient remains significantly weak, she has significant pain from bony mass it is difficult for her to ambulate although her family and she are adamant that she will return home - will start fentanyl patch 25 mcg daily, continue oxycodone 10 mg q.4 hours as needed - given no evidence of ongoing blood loss will defer upper endoscopy at this time. Will continue to monitor hemoglobin should there appear to be significant bleeding will consult GI otherwise symptomatic manage with PPI . 2. Metastatic lung cancer -patient with bony Mets in significant pain -she currently is undergoing immunotherapy with Oncology -will discontinue ibuprofen, continue Tylenol, and start oxycodone 5 mg q.6 hours as needed as needed 3. Chronic hypoxic respiratory failure -will continue oxygen at 2 L -no suggestion of new pneumonia at this time -patient was treated for COVID-19 pneumonia July 18 and was COVID negative at that time. Her COVID screening exam is negative at this time -patient was recently treated for bacterial pneumonia, no evidence of pneumonia at this time 4. Hypertension -will continue amlodipine and metoprolol 5. Suspect severe protein calorie malnutrition given her 16 lb weight loss -this puts the patient at high risk for morbidity and mortality from respiratory and or GI issues -she is placed on a clear liquid diet at this time given her probable upper GI bleed, will ask for Nutrition consult as her weight loss is concerned Patient's surrogate is her Patient indicates she is a full code and will note that her record accordingly Given her acute blood loss anemia and probable GI bleed she will not be placed on pharmacologic prophylaxis for DVT, patient will be placed on SCDs instead Quality VTE Deep Vein Thrombosis/Pulmonary Embolism Present on Admission: No
[2020-08-19] MEDS: fentaNYL 25 MCG/PATCH TOP (14:33)
--- NOTE | 2020-08-19 15:33 | CM.DANOTE ---
DCP ASSESSMENT: Patient is a pleasant 75 year-old female who was admitted to the hospital for treatment of acute blood loss anemia and likely an upper GI bleed, history of metastatic lung CA with mets to brain and bone. Patient is a full code and is actively seeking treatment at [facility] with oncology. Patients PCP is Tamica Goodwin. Her primary payer is Medicare and [employer]. Patient expressed she is weak and has been so for about a month after a positive COVID diagnosis patient stated, ?That is my biggest problem [being weak].? G[employer]AYER student met with patient at bedside this date and educated on role of SW in discharge planning. She was alert and oriented. Patient reported she has not been able to walk or take care of her needs (bathing meal prep, chores) for the last month after her COVID diagnosis. Patient lives with her and her son is the primary caregiver. Patient has home 02, uses a manual wheel chair and has a FWW. Patients wish is to return home per patient either her or son will provide transportation at time of D/C. This development writer called and spoke with Mr. Fiore this date regarding potential D/C from hospital tomorrow, he asked that their son Torito be called as he is her primary caregiver. Attempted to call Torito, there was no answer, left message and number to return call in the morning of . Will also attempt to call Torito back tomorrow to discuss D/C plans and explore support options. PLAN: Anticipate home with family at time of discharge: CM Team to continue to follow. DI Weaver MSW Student Discharge Planning/Care Management CM Discharge Assessment Start: 08/19/20 11:02 Freq: Status: Active Protocol: Document 08/19/20 11:03 AL (Rec: 08/19/20 11:18 AL [id number]) Discharge Planning Assessment Assigned International Bank Manager DI Gómez Student Contact Information Harleen Fiore, . Torito Eldon ( Advance Directives? No Advance Directives on File No History Provided By Patient,Medical Record Has Patient been admitted in last 30 No days? Prior Living Arrangements House Household Members spouse Type of transporation used prior to Relies on Others admit Comment Has not been driving for the last month. Currently relies on and son Willing to Return to Facility? No Independent with ADL's No Is patient alert and oriented? Yes Needs Assistance With Bathing,Meal Prep,Toileting Caregiver for Another No DME Already Rented / Owned Wheelchair Barriers to Discharge No Discharge Plan Home Transportation Arrangement Son and/or will provide transportation on D/C Referrals Initiated None needed Whiteboard Updated in Patient Room with Yes name and ext. # of International Bank Manager
[2020-08-19] MEDS: METOPROLOL IR 25 MG TABLET PO (20:29)
[2020-08-19] MEDS: LORLATINIB 25 MG 25 EACH PO (20:32)
--- NOTE | 2020-08-19 22:28 | PC.NURSE ---
Assumed care of pt at 1500. Pt resting in bed. A/Ox4. 2L NC. No voids since spicer removed. Pt denies need to void. Enc po fluid intake. Bladder scanned after dinner 248 retained. Bladder scanned again 2029 309 ml retained. Up to BSC, 3 PA with gait belt and FWW. Voided 200 ml. Enc more po fluid intake. Pt requests medication for muscle spasms; Pt sleeping when this RN went to to discuss spasms. Bed alarm on. Calling appropriately for needs.
[2020-08-20 04:48] VITALS: BP 116/62; PULSE 83; RESP 18; TEMP 36.9; O2SAT 96
[2020-08-20 05:53] LABS: Alanine Aminotransferase 13 IU/L (<35); Albumin 3.2 g/dL (3.5-5.0); Alkaline Phosphatase 729 U/L (38-126); Aspartate Aminotransferase 64 IU/L (14-36); BUN Creatinine Ratio 33.3 (6-22); Bilirubin Total 0.5 mg/dL (0.2-1.3); Blood Urea Nitrogen 17 mg/dL (7-17); Calcium 9.4 mg/dL (8.4-10.2); Carbon Dioxide 34 mmol/L (22-32); Chloride 101 mmol/L (98-107); Estimated Glomerular Filt Rate > 60.0 mL/min (>60); Globulin 3.1 g/dL (1.7-4.1); Glucose 101 mg/dL (80-110); HEMOLYSIS < 15 (0-50); Potassium 3.7 mmol/L (3.4-5.1); Sodium 134 mmol/L (137-145); Total Protein 6.3 g/dL (6.3-8.2)
[2020-08-20 06:00] LABS: Hemoglobin 8.9 g/dL (12.0-16.0); Mean Corpuscular HGB Conc 32.9 % (30-36); Platelet Count 239 X10^3/uL (150-400); Red Blood Cell Count 3.29 X10^6/uL (4.0-5.2); Red Cell Distribution Width 18.2 % (11.6-14.8); White Blood Cell Count 10.5 X10^3/uL (4.5-11.0)
[2020-08-20 06:01] LABS: Add Manual Diff / Slide Review YES
[2020-08-20 06:33] LABS: Neutrophils Absolute Manual 6825 /uL (3000-5900); Total Cells Counted 100
[2020-08-20 06:34] LABS: Anisocytosis 2+; Hypochromasia 2+; Nucleated Red Blood Cells 1 #/Diff; Polychromasia 1+; Schistocytes 1+
[2020-08-20 08:05] VITALS: BP 144/75; PULSE 97; RESP 16; TEMP 36.7; O2SAT 97
[2020-08-20] MEDS: AMLODIPINE 5 MG TABLET PO (08:32)
[2020-08-20] MEDS: METOPROLOL IR 25 MG TABLET PO (08:32)
[2020-08-20] MEDS: PANTOPRAZOLE 40 MG VIAL IV (08:32)
[2020-08-20] MEDS: GABAPENTIN 100 MG CAPSULE PO (08:32)
[2020-08-20] MEDS: SODIUM CHLORIDE 0.9% FLUSH 10 ML IV (08:33)
[2020-08-20] MEDS: LORLATINIB 25 MG 50 EACH PO (08:54)
--- NOTE | 2020-08-20 09:01 | P.DS_ITS ---
History of Present Illness History of Present Illness Date Patient Seen: 08/20/20 Time Patient Seen: 09:01 Chief complaint: feels dehyrated has bone cancer Narrative: Per Dr. Peterson, The patient is a 75-year-old female with a history of metastatic lung cancer, status post pneumonectomy, with Mets to the bone and brain who currently is und ergoing chemotherapy. She was seen by Dr. Moore recently for chemo. The patient is chronically on oxygen. In June she was hospitalized at [facility] for COVID pneumonia and bacterial pneumonia. The patient was discharged home. She presented to the emergency room today because she was not feeling well. She complained of increased weakness. The patient was hypotensive at that time 92/49. She was afebrile. She was found to have black stools for the past week. Patient previously had been on prednisone as part of her chemotherapy. But more importantly she has been taking ibuprofen 600 mg every 6 hours alternating with Tylenol for chronic bony pain. She denies any hematemesis. She has had no vomiting. No fever or chills. She has lost 16 lb over the past 7 months. The patient denies any headache blurred vision double vision. She denies any shortness of breath although is chronically on oxygen. She denies any abdominal pain, dysuria hematuria or pyuria. Patient was found to be guaiac-positive in the emergency room with dark stool. In addition she was found to be anemic with a hemoglobin of 7.7 hematocrit of 24. Her last H&H was 9.8 and 31.8. Patient was admitted to the hospital for treatment of acute blood loss anemia and likely an upper GI bleed. Discharge Providers Provider Date of admission: 08/18/20 08:49 Discharge Date: 08/20/20 Primary care physician: Tamica Goodwin MD Consults: 08/18/20 08:30 Consult to General Surgery Stat Comment: Consulting Provider: William Smith Reason for consultation: GI bleed Has provider been notified: Yes 08/19/20 08:25 Consult to Physical Therapy Evaluate & Treat Comment: weak unable to walk Physician Instructions: Evaluate and Treat 08/20/20 08:47 Consult to Home Health Routine Comment: DX: dehydration Reason For Exam: Resume home health Discharge provider: Baldo Neri DO Summary Hospital Course Discharge Diagnosis: Please see hospital course by problem list noted below Hospital Course: 75-year-old female admitted to the hospital for generalized weakness most likely multifactorial due to acute blood loss anemia from presumed upper GI bleeding and suspected severe protein calorie malnutrition. 1. Acute blood loss anemia secondary to presumed upper GI bleeding, present on admission, stable -had had a drop of her hemoglobin from 9.8-7.7 Over the previous 2 weeks. She was admitted with presumed symptomatic anemia. The patient was guaiac positive in the emergency room with dark Stools and had been taking ibuprofen every 6 hours for chronic pain from her metastatic lung cancer. She responded appropriately after 1 unit of packed red blood cells with improvement in her hemoglobin to 8.9. Repeat evaluation showed a stable hemoglobin. Given her history of left pneumonectomy and no evidence of ongoing bleeding, deferred upper endoscopy at this time. She should continue on oral Protonix twice daily and her ibuprofen was stopped. She can take Tylenol and she was started on a fentanyl patch upon discharge for management of her chronic pain. 2. Metastatic lung cancer -patient with bony Mets in significant pain,Ibuprofen was discontinued and the patient was started on fentanyl patch with very good control of her pain. Will continue this as an outpatient temporarily. I recommend that she continue Tylenol as needed for additional pain relief. Highly recommend follow-up with her oncologist her PCP for chronic pain management. 3. Chronic hypoxic respiratory failure -Patient was continued on her usual 2 L of supplemental oxygen, she was not hypoxic on this amount and had no evidence of acute respiratory infection. 4. Hypertension, chronic -No medication changes recommended at this time 5. severe protein calorie malnutrition. - chief fishery division unable to see patient due to timing of admission. Exam Vital Signs (past 8 hours): - 08/20/20 04:48 08/20/20 08:05 Temperature 98.5 F 98.1 F Pulse Rate 83 97 H Respiratory Rate 18 16 Blood Pressure 116/62 144/75 H Pulse Oximetry 96 97 Oxygen Delivery Method Nasal Cannula Oxygen Flow Rate 2 Narrative Exam Narrative: Gen: Frail elderly female, no acute distress, smiling HEENT: Normocephalic atraumatic extraocular muscles are intact oropharynx reveals dry mucous members neck is soft Lungs: Decreased breath sounds, scattered rhonchi over the right lung, decreased breath sounds over the left lung CV: RRR no m/r/g. Abdomen: Soft nontender nondistended Extremities: No edema or joint effusions. Neuro exam: Cranial nerves 2-12 are intact, strength is symmetric and equal, sensation grossly intact reflexes are equal Psychiatric exam: Patient is awake and alert, answers questions appropriately Objective Labs Result Diagrams: 08/20/20 05:00 08/20/20 05:00 Labs: Laboratory Results - last 24 hr 08/20/20 08/20/20 05:00 05:00 WBC 10.5 RBC 3.29 L Hgb 8.9 L Hct 27.0 L MCV 82.0 MCH 27.0 MCHC 32.9 RDW 18.2 H Plt Count 239 Neut % (Auto) Not Reportable Lymph % (Auto) Not Reportable [place] % (Auto) Not Reportable Eos % (Auto) Not Reportable Baso % (Auto) Not Reportable Lymph # (Auto) Not Reportable [place] # (Auto) Not Reportable Baso # (Auto) Not Reportable Total Counted 100 Seg Neutrophils % 65.0 Lymphocytes % (Manual) 24.0 L Monocytes % (Manual) 5.0 Eosinophils % (Manual) 6.0 H Neutrophils # (Manual) 6825 H Nucleated RBCs 1 H RBC Morphology See below Polychromasia 1+ H Hypochromasia 2+ H Anisocytosis 2+ H Schistocytes 1+ H Sodium 134 L Potassium 3.7 Chloride 101 Carbon Dioxide 34 H BUN 17 Creatinine 0.51 L Estimated GFR > 60.0 BUN/Creatinine Ratio 33.3 H Glucose 101 Calcium 9.4 Total Bilirubin 0.5 AST 64 H ALT 13 Alkaline Phosphatase 729 H Total Protein 6.3 Albumin 3.2 L Globulin 3.1 Albumin/Globulin Ratio 1.0 PFSH Medical History (Updated 08/18/20 @ 15:29 by Karla Peterson MD) Cancer Chronic anemia Chronic respiratory failure Hypertension Metastatic lung cancer (metastasis from lung to other site) Pneumonia due to COVID-19 virus Surgical History (Updated 08/18/20 @ 06:52 by Adilene Manley DO) H/O pneumonectomy Family History (Updated 08/18/20 @ 15:30 by Karla Peterson MD) Father Natural with unknown cause Social History household members: spouse Smoking Status: Never smoker alcohol intake: never Discharge Plan Discharge Plan Patient Disposition: Home Provider Discharge Comment: You were admitted to the hospital with anemia likely from your continued ibuprofen use. You should continue omeprazole twice daily for presumed gastritis. Recommend follow-up with your PCP for repeat evaluation of your anemia in the next few weeks and to discuss possible further management. No endoscopy was performed as your bleeding seem to stop and given your past surgical history it can make endoscopy more risky. You pain seemed much improved with fentanyl patch and I can continue this for a few days but you should schedule an appointment with oncology or your PCP to continue pain management as an outpatient. Discharge orders & Medications Prescriptions: New omeprazole 40 mg capsule,delayed release(DR/EC) 40 mg PO BID 90 Days Qty: 180 RF: 0 fentanyl 25 mcg/hr patch 72 hour 1 patch transdermal Q72H 7 Days Qty: 3 RF: 0 Continued lorlatinib 25 mg Tablet 25 mg PO DAILY RF: 0 amlodipine [Norvasc] 5 mg Tablet 5 mg PO DAILY RF: 0 gabapentin 100 mg Capsule 100 mg PO TID RF: 0 metoprolol tartrate 25 mg Tablet 25 mg PO BID RF: 0 Discontinued ibuprofen 600 mg Tablet 600 mg PO BID PRN (Reason: Pain (Scale Score 1-3)) RF: 0 Follow up/Referrals: Tamica Goodwin MD [Primary Care Provider] - Diet/Activity/Treatments Diet: Diet as Tolerated Activity: As tolerated Oxygen: continue home oxygen use. Visit Report/Discharge Packet Instructions: Gastritis Discharge Data Primary Care Provider: Tamica Goodwin Quality VTE Deep Vein Thrombosis/Pulmonary Embolism Present on Admission: No
[2020-08-20 09:18] VITALS: PULSE 83; RESP 16; O2SAT 96
--- NOTE | 2020-08-20 09:54 | PT.IPTN ---
Current Diagnoses Acute posthemorrhagic anemia (08/18/20) Physical Therapy Treatment Note M2 PT-IP Current Condition Start: 08/19/20 10:10 Freq: NEEDED Status: Active Protocol: Document 08/19/20 13:19 AW (Rec: 08/19/20 14:06 AW [id number]) Physical Therapy Current Condition Current Condition Evaluation Date 08/19/20 Treatment Diagnosis anemia, upper GI bleed; difficulty in walking Onset Date 08/17/20 M3 PT-IP Subjective Start: 08/19/20 10:10 Freq: NEEDED Status: Active Protocol: Document 08/20/20 09:36 AW (Rec: 08/20/20 09:54 AW [id number]) Subjective Physical Therapy Visit Type Type Treatment Note Visit Start Time 09:12 Visit Stop Time 09:36 Total Visit Minutes 24 Notes H&H stable today at 8.9/27.0 Physical Therapy Visit Comments Patient Comments Pt is motivated to do PT today in hopes of discharging home. Therapy Pain Assessment Pain When Pain Assessed During Mobility Pain Present Pain Present Denied Pain Location diffuse lower extremities Intensity 5 Scale Used 0/10 at rest Description Aching,Spasm,Tender,With Movement Pain Behaviors Restlessness,Wincing Pain Management Techniques Re-positioning,Timing of Activity with Medications M4 PT-IP Mobility and Gait Start: 08/19/20 10:10 Freq: NEEDED Status: Active Protocol: Document 08/20/20 09:36 AW (Rec: 08/20/20 09:54 AW [id number]) PT-Bed Mobility Assessment Supine to Sit Supine to Sit Moderate Assistance,1 Person Assistance,Head of Bed Elevated Sit to Supine Sit to Supine Moderate Assistance,1 Person Assistance Scooting Scooting to Edge of Bed Maximum Assistance PT-Transfer Assessment Sit to and From Stand Sit to and from Stand Minimal Assistance,1 Person Assistance,Use of Upper Extremities Equipment Transfer Assistive Device Gait Belt,Front Wheeled Walker Orthotic/Prosthetic Devices or Brace: No Transfers Transfer Destination Bed,Chair,Wheelchair Transfer Technique Stand Step Pivot Transfer Ability Level of Assist Minimal Assistance,1 Person Assistance,Use of Upper Extremities Comments Mobility Comments Pt was lying in the bed as PT arrived. SpO2 was 97% on 2L/ min. She requested HOB elevated for supine to sit because she uses multiple pillows to prop up at home. She moved toward the EOB but complained of increased pain and stated her would normally assist her to sit up. PT provided mod assist to pivot toward EOB and then max assist to scoot in order to get her feet closer to the floor. Pt stood from the bed min A x 1 and used the FWW to ambulate ~2.5 feet to the chair, transferring min A x 1. She rested for a minute and then agreed to transfer to her w/c. She stood from the chair needing min assist and cues to push off from the chair arms and then used the FWW to ambulate ~5 feet to the w/c. She needed assist to manage the brakes on the wheelchair but then propelled herself a total of 50 feet using BUE on the rims. Pt was pushed in her w/c back to the room where she stood min A x 1 and walked another 5 feet to the bed with FWW. She transferred back to supine mod A x 1 and was positioned with warm blanket, call light and all needs in reach. Gait Assessment Gait Gait Assistance Required: Minimum Assistance,1 Person Assist Distance (Feet) 5 Assistive Devices Assistive Device Front Wheeled Walker Gait Deviations General Gait Pattern Antalgic,Decreased Stride Length,Decreased Feet Clearance,Flexed Trunk,Narrow Based Gait Factors Limiting Gait Function Factors Limiting Gait Function Decreased Activity Tolerance, Decreased Strength,Pain,Poor Balance,Poor Safety Awareness Comments Gait Comments Pt needed min assist to ambulate with FWW and was notably weak and needing cues for knee extension and postural awareness. Stair Climbing Assessment Comments Stair Climbing Comments Not assessed. No stairs at home. PT-Balance Assessment Sitting Balance and Reactions Static Sitting Balance Ability Fair Dynamic Sitting Balance Ability Fair Standing Balance and Reactions Static Standing Balance Ability Poor Dynamic Standing Balance Ability Poor Device Used FWW M5 PT-IP Objective Assessments Start: 08/19/20 10:10 Freq: NEEDED Status: Active Protocol: Document 08/19/20 13:19 AW (Rec: 08/19/20 14:06 AW [id number]) Orientation Orientation/Cognition Level of Alertness Lethargic Orientation Name,Place,Situation Language Function Ability No Deficits Noted,Korean as Second Language Safety Awareness Decreased Safety Awareness Gross Range of Motion Lower Extremity ROM Assessment Within Functional Limits Strength Lower Extremity Strength Assessment Bilaterally Impaired Hip 3/5 Knee 3+/5 Sensation Assessment Sensation Gross Sensation WNL Comments Sensation Comments Pt denies any sensation disturbance M6 PT-IP Treatment Start: 08/19/20 10:10 Freq: NEEDED Status: Active Protocol: Document 08/20/20 09:36 AW (Rec: 08/20/20 09:54 AW [id number]) Physical Therapy Treatment Education Education Provided Safety Other Treatments Other Treatment Performed Educated pt on brakes management for her w/c. Her brakes are not setting properly, making her w/c less safe. Pt was advised to have her son check the brakes or push the w/c against a sturdy surface or wall for transfers. M7 PT-IP Assessment and Plan Start: 08/19/20 10:10 Freq: NEEDED Status: Active Protocol: Document 08/20/20 09:36 AW (Rec: 08/20/20 09:54 AW [id number]) PT Summary Assessment and Plan Potential Rehabilitation Potential Fair Status of Condition at Evaluation Evolving Summary Impairments Pain,Strength,Balance,Bed Mobility,Transfers,Gait, Activity Tolerance Progress Towards Goals Slow Progress due to Pain,Slow Progress due to Medical Issues Assessment Summary Gerda had improved activity tolerance today, transferring three times and ambulating up to five feet with FWW. Pt has strong family support at home and is determined to return home at discharge. Pt is safe to return home with 24/7 assist available and would benefit from home health therapy. Goals Bed Mobility Goal Contact Guard Assistance Transfer Goal Contact Guard Assistance,Front Wheeled Walker Gait Goal Contact Guard Assistance,Front Wheel Walker Gait Distance 20 Days to Meet Goals 5 Frequency of Treatment Frequency Of Treatment Once a Day Treatment Plan Physical Therapy Treatment Plan Bed Mobility Training,Transfer Training,Gait Training, Therapeutic Exercise,Balance Retraining,Discharge Planning, Hot or Cold Pack Recommendations To Nursing Amount of Assist Needed 2 Person Assist Discharge Recommendations PT Discharge Recommendations Home with 24/7 Assist Available,Home Health Transportation Needs at Discharge Private Vehicle
--- NOTE | 2020-08-20 11:27 | CM.DPC ---
DCP Continued: [employer] Student spoke with son on the phone this am. He is aware of D/C and able to take mother home as he is her primary caregiver. [employer] T[employer] Student met with patient this date she is aware and in agreement with D/C plan. Called and spoke with [facility] to confirm they can resume care for patient. Faxed [facility] with D/C order, history and physical and resumption of care order. Patient and son aware. Patient returning home with 02, she is already sest-up with 02 at home. Provided patient with senior guide and information about self-pay caregivers. Provided patient with a copy of the [facility] paperwork. PLAN: D/C home with support of family. DI Weaver [employer]ET T[employer] Student
[2020-08-20] MEDS: OXYCODONE IR 5 MG TABLET PO (11:31)
--- NOTE | 2020-08-20 11:37 | PC.NURSE ---
Pt discharge education given to pt and son, discussed- medications -administration and safety, s/s of stroke, DI for gastritis, f/u appts, reasons to seek medical attention, worsening symptoms. Pt and son expressed understanding of education given. Midline removed, intact, tolerated well. IV removed, intact, tolerated well. Tele removed, R[employer] TIER informed. Pt dressed with assistance of STRATEGY ASSOCIATE. All belongings packed and sent with son. Pt brought to son's POV by STRATEGY ASSOCIATE via w/c.
== END 2020-08-20 11:40 | disposition home health service (06) | DRG 812 ==
LOC: ED 08:37 → AC 08:50
PROVIDERS: Emergency Medicine; Admitting Provider Internal Medicine; Emergency Provider Emergency Medicine; PCP Internal Medicine; Referring Provider Emergency Medicine; Visit Provider Internal Medicine
DX: D62 Acute posthemorrhagic anemia (principal); K92.1 Melena; C34.92 Malignant neoplasm of unspecified part of left bronchus or lung; C79.51 Secondary malignant neoplasm of bone; J96.11 Chronic respiratory failure with hypoxia; E46 Unspecified protein-calorie malnutrition; I10 Essential (primary) hypertension; Z99.81 Dependence on supplemental oxygen; Z86.16 Personal history of COVID-19; Z79.1 Long term (current) use of non-steroidal anti-inflammatories (NSAID); Z68.22 Body mass index [BMI] 22.0-22.9, adult
CPT/HCPCS: 36415; 36430; 36592; 71045; 80053; 81001; 83605; 83880; 84484; 85007; 85014; 85018; 85025; 85610; 85730; 86850; 86900; 86901; 87633; 87635; 93005; 94762; 96361; 96374; 96375; 96376; 97162; 97530; 99284; 99285; C9803; P9016; C9113; J1642; J2270; J7121

== ENCOUNTER 2020-08-28 10:10 | Inpatient (IN) | payer MEDICARE, OTHER, SELFPAY ==
[2020-08-18 12:14] VITALS: BMI 20.2
[2020-08-28] VITALS (19 sets, daily range): BP systolic 107–165; BP diastolic 55–83; PULSE 101–121; RESP 16–39; TEMP 36.8–37; O2SAT 94–100; BMI 21.1
--- NOTE | 2020-08-28 10:13 | ED_ITS ---
HPI - SOB/Dyspnea General Chief Complaint: Upper Respiratory Symptoms Stated Complaint: Weakness Time Seen by Provider: 08/28/20 10:10 Source: patient and EMS Mode of arrival: EMS Limitations: no limitations History of Present Illness HPI Narrative: 75-year-old female nonsmoker with history of hypertension, lung cancer on 2 L home oxygen presents with a chief complaint of weakness and increased shortness of breath. She has been under significant amount of stress at home and her was just diagnosed with multiple cancers of his own and she admits that this is causing significant stress and all she wants to do is sleep. Her home nurse thought she was more tired than normal and increased her oxygen up to 3 L and on arrival she is satting 97% and in no obvious or significant respiratory distress. She has not been ambulatory for a few months, since her diagnosis of COVID-19. She has had no fever chills and denies nausea, vomiting or diarrhea. She denies any dysuria, frequency or urgency. She denies any dietary or medication changes. She denies any increased shortness of breath when lying flat. She denies any weight gain, swelling in her legs or pain MD Complaint: shortness of breath Onset (ago): hour(s) Context: recent illness Severity: moderate Consistency/Duration: improved Relieving factors: nothing Exacerbating factors: nothing Associated symptoms: denies other symptoms Treatment prior to arrival: oxygen Related Data Home oxygen amount: 2 liters Home Medications Medication Instructions Recorded Confirmed amlodipine [Norvasc] 5 mg PO DAILY 08/18/20 08/18/20 gabapentin 100 mg PO TID 08/18/20 08/18/20 lorlatinib 25 mg PO DAILY 08/18/20 08/18/20 metoprolol tartrate 25 mg PO BID 08/18/20 08/18/20 Previous Rx's Medication Instructions Recorded omeprazole 40 mg PO BID 90 Days #180 cap 08/20/20 Allergies Allergy/AdvReac Type Severity Reaction Status Date / Time No Known Drug Allergies Allergy Verified 08/28/20 10:31 Review of Systems Constitutional Constitutional: Denies chills, Reports fatigue, Denies fever(s), Denies frequent falls, Denies lethargy and Reports weakness Eyes Eyes: Denies change in vision, Denies eye discharge, Denies irritation and Denies loss of vision ENT Ears, Nose, Mouth, and Throat: Denies change in voice, Denies dizziness, Denies neck pain, Denies sore throat and Denies throat swelling Cardiovascular Cardiovascular: Denies chest pain, Denies irregular heart rhythm, Denies lightheadedness, Denies palpitations, Reports dyspnea, Denies dyspnea on exertion and Denies orthopnea Respiratory Respiratory: Denies cough, Reports dyspnea, Denies dyspnea on exertion and Denies wheezing Gastrointestinal Gastrointestinal: Denies abdominal pain, Denies change in bowel habits, Denies diarrhea, Denies nausea and Denies vomiting Musculoskeletal Musculoskeletal: Denies neck pain and Denies numbness Integumentary/Breasts Skin/Breast: Denies pruritus, Denies erythema, Denies rash and Denies wounds Neurologic Neurologic: Denies behavioral changes, Denies confusion, Denies dizziness, Denies frequent falls, Denies loss of vision, Denies numbness and Reports weakness Psychiatric Psychiatric: Denies anxiety, Denies behavioral changes, Denies confusion, Denies depression, Denies homicidal ideation and Denies suicidal ideation Endocrine Endocrine: Reports fatigue, Denies flushing and Denies palpitations Hematologic/Lymphatic Hematologic/Lymphatic: Denies easy bruising Allergic/Immunologic Allergic/Immunologic: Denies urticaria, Denies throat swelling and Denies wheezing Patient History Medical History Cancer Chronic anemia Chronic respiratory failure Hypertension Metastatic lung cancer (metastasis from lung to other site) Pneumonia due to COVID-19 virus Surgical History H/O pneumonectomy Family History Father Natural with unknown cause Social History household members: spouse Smoking Status: Never smoker alcohol intake: never Smoking Status: Never smoker Substance Use Type: does not use Exam Narrative Exam Narrative: GENERAL: [75] year old patient appears stated age. Well- nourished, well-developed patient, in mild distress. No obvious or significant work of breathing HEAD: Atraumatic. Normocephalic. EYES: Pupils equal round and reactive. Extraocular motions intact. No scleral icterus. No injection or drainage. ENT: Nose without bleeding, purulent drainage. Throat without erythema, tonsillar hypertrophy or exudate. Airway patent. NECK: Trachea midline. Non tender CARDIOVASCULAR: Regular rate and rhythm without murmurs, gallops, or rubs. RESPIRATORY: Decreased breath sounds bilaterally with prolonged expiratory phase GASTROINTESTINAL: Abdomen soft, non-tender, nondistended. EXTREMITIES: No edema or joint tenderness. BACK: Nontender without deformity or crepitance. No flank tenderness. NEURO: AOx3. SKIN: No rash or erythema of visible areas Initial Vital Signs Initial Vital Signs: Vital Signs Pulse Rate 103 H 08/28/20 10:30 Respiratory Rate 28 H 08/28/20 10:30 Blood Pressure 121/61 08/28/20 10:30 Pulse Oximetry 100 08/28/20 10:30 Course Course Course Narrative: Patient initially was refusing fluids and antibiotics despite discussion regarding the importance. 0400 - after discussion with POA and caregiver she is open to the administration of fluids and ABX to treat her pneumonia PSI/PORT Score: Pneumonia Severity Index for CAP from [email or web address] on 08/28/2020 All calculations should be rechecked by clinician prior to use RESULT SUMMARY: 126 points Risk Class IV, 8.2-9.3% mortality. Hospitalization recommended based on risk. INPUTS: Age ?> 75 years Sex ?> -10 = Female jail resident ?> 0 = No Neoplastic disease ?> 30 = Yes Liver disease history ?> 0 = No CHF history ?> 0 = No Cerebrovascular disease history ?> 0 = No Renal disease history ?> 0 = No Altered mental status ?> 0 = No Respiratory rate ?30 breaths/min ?> 20 = Yes Systolic blood pressure ?> 0 = No Temperature 39.9?C (103.8?F) ?> 0 = No Pulse ?125 beats/min ?> 0 = No pH ?> 0 = No BUN ?30 mg/dL or ?11 mmol/L ?> 0 = No Sodium ?> 0 = No Glucose ?250 mg/dL or ?14 mmol/L ?> 0 = No Hematocrit ?> 10 = Yes Partial pressure of oxygen ?> 0 = No Pleural effusion on x-ray ?> 0 = No Orders Ordered: ED Orders 08/28/20 10:22 Basic Metabolic Panel Stat Complete Blood Count AUTO DIFF Stat D Dimer Stat Magnesium Stat NT-proBNP (BNP-Adult 18+) Stat Procalcitonin Stat Troponin & CK Cardiac Panel Stat 08/28/20 10:26 Arterial Blood Gas Stat 08/28/20 10:27 Consult to Respiratory Therapy Evaluate & Treat XR chest 1V Stat Lactate (Lactic Acid) Stat EKG-12 Lead Stat 08/28/20 10:44 Blood Culture Stat 08/28/20 11:32 CT angio chest PE protocol Stat 08/28/20 11:33 Arterial Blood Gas Stat 08/28/20 15:00 Urine Culture Stat Urine Microscopic Stat 08/28/20 15:02 Respiratory Panel (Film Array) Stat Acetaminophen (Acetaminophen 325 Mg Tablet) 650 mg PO Q6HR PRN PRN Reason: Fever/Mild Pain (1-3) Albuterol (Albuterol 2.5 Mg/3 Ml Neb (Adult)) 2.5 mg INH RTQ4HR PRN PRN Reason: Shortness Of Breath Or Wheezing Fentanyl (Fentanyl 25 Mcg/Patch) 25 mcg TOP Q72H [facility] Ceftriaxone Sodium/Dextrose (Rocephin) 1 gm in 50 mls @ 100 mls/hr IV Q24H KIMBERLEE Stop: 09/02/20 17:59 Azithromycin 500 mg/ Dextrose 250 mls @ 250 mls/hr IV Q24H KIMBERLEE Stop: 08/31/20 18:59 Naloxone HCl (Naloxone 0.4 Mg/Ml Vial) 0.2 mg IV Q2MIN PRN PRN Reason: Opiate Reversal Pantoprazole Sodium (Pantoprazole 40 Mg Tablet) 40 mg PO 0700,2100 [facility] Discontinued Medications Sodium Chloride (Normal Saline 0.9%) 1,000 mls @ 150 mls/hr IV CONT KIMBERLEE Last Admin: 08/28/20 11:54 Dose: Not Given Documented by: PANCHO Sodium Chloride (Normal Saline 0.9%) 1,000 mls @ 1,000 mls/hr IV BOLUS ONE Stop: 08/28/20 14:48 Last Infusion: 08/28/20 15:52 Dose: 0 mls/hr Documented by: Admin: 08/28/20 14:10 Dose: 1,000 mls/hr Documented by: PANCHO Ampicillin Sodium/Sulbactam (Sodium 3 gm/ Sodium Chloride) 100 mls @ 100 mls/hr IV NOW ONE Stop: 08/28/20 13:53 Last Infusion: 08/28/20 15:08 Dose: 0 mls/hr Documented by: Admin: 08/28/20 14:10 Dose: 100 mls/hr Documented by: PANCHO Vital Signs Vital signs: Vital Signs - 8 hr 08/28/20 10:30 08/28/20 10:31 08/28/20 11:00 Temperature 98.3 F Pulse Rate 103 H 106 H 101 H Respiratory Rate 28 H 22 30 H Blood Pressure 121/61 115/58 L 117/62 Pulse Oximetry 100 100 100 08/28/20 11:30 08/28/20 11:58 08/28/20 12:00 Temperature Pulse Rate 105 H 108 H 105 H Respiratory Rate 28 H 27 H 28 H Blood Pressure 125/62 165/83 H Pulse Oximetry 100 100 100 08/28/20 12:30 08/28/20 12:34 08/28/20 13:00 Temperature Pulse Rate 113 H 113 H 104 H Respiratory Rate 32 H 27 H 27 H Blood Pressure 125/61 107/55 L Pulse Oximetry 98 99 100 08/28/20 13:30 08/28/20 14:00 08/28/20 14:30 Temperature Pulse Rate 109 H 115 H 121 H Respiratory Rate 28 H 39 H Blood Pressure 113/58 L 153/69 H Pulse Oximetry 100 100 98 08/28/20 14:31 08/28/20 15:00 08/28/20 15:30 Temperature Pulse Rate 121 H 119 H 114 H Respiratory Rate 36 H 36 H 34 H Blood Pressure 153/75 H 141/71 H 153/70 H Pulse Oximetry 98 95 95 MDM - SOB/Dyspnea Lab Data Result diagrams: 08/28/20 10:22 08/28/20 10:22 Labs: Lab Results 08/28/20 08/28/20 08/28/20 Range/Units 10:22 10:22 10:22 WBC 16.5 H (4.5-11.0) X10^3/uL RBC 3.16 L (4.0-5.2) X10^6/uL Hgb 7.9 L (12.0-16.0) g/dL Hct 25.2 L (36-46) % MCV 79.5 L (80-100) fL MCH 25.1 L (26-34) PG MCHC 31.6 (30-36) % RDW 17.0 H (11.6-14.8) % Plt Count 299 (150-400) X10^3/uL Neut % (Auto) 76.2 H (50-75) % Lymph % (Auto) 13.9 L (25-40) % [place] % (Auto) 7.9 (3-14) % Eos % (Auto) 1.1 L (2-4) % Baso % (Auto) 0.9 (0-2) % Neut # (Auto) 63293 H (3589-0075) /uL Lymph # (Auto) 2300 (7552-9281) /uL [place] # (Auto) 1300 H (0-900) /uL Eos # (Auto) 200 (0-450) /uL Baso # (Auto) 100 (0-100) /uL D-Dimer 6743 H (<230) ng/mL ABG pH (7.35-7.45) ABG pCO2 (35-45) mmHg ABG pO2 (80-100) mmHg ABG HCO3 (22-26) mmol/L ABG Total CO2 (21-31) mmol/L ABG O2 Saturation (95-100) % ABG Base Excess (-2-2) mmol/L FiO2 Sodium (137-145) mmol/L Potassium (3.4-5.1) mmol/L Chloride (98-107) mmol/L Carbon Dioxide (22-32) mmol/L BUN (7-17) mg/dL Creatinine (0.52-1.04) mg/dL Estimated GFR (>60) mL/min BUN/Creatinine Ratio (6-22) Glucose (80-110) mg/dL Lactate (0.7-2.1) mmol/L Calcium (8.4-10.2) mg/dL Magnesium (1.6-2.3) mg/dL Total Creatine Kinase (30-135) U/L CK-MB (CK-2) CK-MB (CK-2) Rel Index Troponin I (0.01-0.034) ng/mL NT-Pro-B Natriuret Pep 334 (<450) pg/mL Procalcitonin 0.17 (<0.5) ng/mL Urine RBC (0-5/HPF) Urine WBC (0-5/HPF) Ur Squamous Epith Cells (0-5/HPF) Amorphous Sediment Urine Bacteria (None) Ur Culture Indicated? Chlamy pneumoniae PCR (Not Detect) Adenovirus (PCR) (Not Detect) B. pertussis DNA (PCR) (Not Detecte) B.parapertussis DNA PCR (Not Detecte) Coronavirus OC43 (PCR) (Not Detect) Coronavirus HKU1 (PCR) (Not Detect) Coronavirus 229E (PCR) (Not Detect) SARS-CoV-2 (PCR) (Not Detecte) Coronavirus NL63 (PCR) (Not Detect) Human Metapneumovir PCR (Not Detect) Influenza Type A (PCR) (Not Detect) Influenza Type B (PCR) (Not Detect) M. pneumoniae (PCR) (Not Detect) Parainfluenza 1 (PCR) (Not Detect) Parainfluenza 2 (PCR) (Not Detect) Parainfluenza 3 (PCR) (Not Detect) Parainfluenza 4 (PCR) (Not Detect) RSV (PCR) (Not Detect) Entero/Rhino (PCR) (Not Detect) 08/28/20 08/28/20 08/28/20 Range/Units 10:22 10:27 11:33 WBC (4.5-11.0) X10^3/uL RBC (4.0-5.2) X10^6/uL Hgb (12.0-16.0) g/dL Hct (36-46) % MCV (80-100) fL MCH (26-34) PG MCHC (30-36) % RDW (11.6-14.8) % Plt Count (150-400) X10^3/uL Neut % (Auto) (50-75) % Lymph % (Auto) (25-40) % [place] % (Auto) (3-14) % Eos % (Auto) (2-4) % Baso % (Auto) (0-2) % Neut # (Auto) (4388-0323) /uL Lymph # (Auto) (3077-5656) /uL [place] # (Auto) (0-900) /uL Eos # (Auto) (0-450) /uL Baso # (Auto) (0-100) /uL D-Dimer (<230) ng/mL ABG pH 7.45 (7.35-7.45) ABG pCO2 38.1 (35-45) mmHg ABG pO2 122 H (80-100) mmHg ABG HCO3 26 (22-26) mmol/L ABG Total CO2 27 (21-31) mmol/L ABG O2 Saturation 99 (95-100) % ABG Base Excess 2.0 (-2-2) mmol/L FiO2 28 Sodium 131 L (137-145) mmol/L Potassium 4.1 (3.4-5.1) mmol/L Chloride 101 (98-107) mmol/L Carbon Dioxide 30 (22-32) mmol/L BUN 12 (7-17) mg/dL Creatinine 0.49 L (0.52-1.04) mg/dL Estimated GFR > 60.0 (>60) mL/min BUN/Creatinine Ratio 24.5 H (6-22) Glucose 152 H (80-110) mg/dL Lactate 1.0 (0.7-2.1) mmol/L Calcium 9.7 (8.4-10.2) mg/dL Magnesium 2.4 H (1.6-2.3) mg/dL Total Creatine Kinase 22 L (30-135) U/L CK-MB (CK-2) TNP CK-MB (CK-2) Rel Index TNP Troponin I < 0.012 (0.01-0.034) ng/mL NT-Pro-B Natriuret Pep (<450) pg/mL Procalcitonin (<0.5) ng/mL Urine RBC (0-5/HPF) Urine WBC (0-5/HPF) Ur Squamous Epith Cells (0-5/HPF) Amorphous Sediment Urine Bacteria (None) Ur Culture Indicated? Chlamy pneumoniae PCR (Not Detect) Adenovirus (PCR) (Not Detect) B. pertussis DNA (PCR) (Not Detecte) B.parapertussis DNA PCR (Not Detecte) Coronavirus OC43 (PCR) (Not Detect) Coronavirus HKU1 (PCR) (Not Detect) Coronavirus 229E (PCR) (Not Detect) SARS-CoV-2 (PCR) (Not Detecte) Coronavirus NL63 (PCR) (Not Detect) Human Metapneumovir PCR (Not Detect) Influenza Type A (PCR) (Not Detect) Influenza Type B (PCR) (Not Detect) M. pneumoniae (PCR) (Not Detect) Parainfluenza 1 (PCR) (Not Detect) Parainfluenza 2 (PCR) (Not Detect) Parainfluenza 3 (PCR) (Not Detect) Parainfluenza 4 (PCR) (Not Detect) RSV (PCR) (Not Detect) Entero/Rhino (PCR) (Not Detect) 08/28/20 08/28/20 Range/Units 15:00 15:02 WBC (4.5-11.0) X10^3/uL RBC (4.0-5.2) X10^6/uL Hgb (12.0-16.0) g/dL Hct (36-46) % MCV (80-100) fL MCH (26-34) PG MCHC (30-36) % RDW (11.6-14.8) % Plt Count (150-400) X10^3/uL Neut % (Auto) (50-75) % Lymph % (Auto) (25-40) % [place] % (Auto) (3-14) % Eos % (Auto) (2-4) % Baso % (Auto) (0-2) % Neut # (Auto) (4160-7232) /uL Lymph # (Auto) (8127-6935) /uL [place] # (Auto) (0-900) /uL Eos # (Auto) (0-450) /uL Baso # (Auto) (0-100) /uL D-Dimer (<230) ng/mL ABG pH (7.35-7.45) ABG pCO2 (35-45) mmHg ABG pO2 (80-100) mmHg ABG HCO3 (22-26) mmol/L ABG Total CO2 (21-31) mmol/L ABG O2 Saturation (95-100) % ABG Base Excess (-2-2) mmol/L FiO2 Sodium (137-145) mmol/L Potassium (3.4-5.1) mmol/L Chloride (98-107) mmol/L Carbon Dioxide (22-32) mmol/L BUN (7-17) mg/dL Creatinine (0.52-1.04) mg/dL Estimated GFR (>60) mL/min BUN/Creatinine Ratio (6-22) Glucose (80-110) mg/dL Lactate (0.7-2.1) mmol/L Calcium (8.4-10.2) mg/dL Magnesium (1.6-2.3) mg/dL Total Creatine Kinase (30-135) U/L CK-MB (CK-2) CK-MB (CK-2) Rel Index Troponin I (0.01-0.034) ng/mL NT-Pro-B Natriuret Pep (<450) pg/mL Procalcitonin (<0.5) ng/mL Urine RBC 0-1/hpf (0-5/HPF) Urine WBC 5-10/hpf H (0-5/HPF) Ur Squamous Epith Cells 1-5 /hpf (0-5/HPF) Amorphous Sediment 1+ Urine Bacteria Moderate (10-30) H (None) Ur Culture Indicated? Specimen cultured Chlamy pneumoniae PCR Not detected (Not Detect) Adenovirus (PCR) Not detected (Not Detect) B. pertussis DNA (PCR) Not detected (Not Detecte) B.parapertussis DNA PCR Not detected (Not Detecte) Coronavirus OC43 (PCR) Not detected (Not Detect) Coronavirus HKU1 (PCR) Not detected (Not Detect) Coronavirus 229E (PCR) Not detected (Not Detect) SARS-CoV-2 (PCR) Not detected (Not Detecte) Coronavirus NL63 (PCR) Not detected (Not Detect) Human Metapneumovir PCR Not detected (Not Detect) Influenza Type A (PCR) Not detected (Not Detect) Influenza Type B (PCR) Not detected (Not Detect) M. pneumoniae (PCR) Not detected (Not Detect) Parainfluenza 1 (PCR) Not detected (Not Detect) Parainfluenza 2 (PCR) Not detected (Not Detect) Parainfluenza 3 (PCR) Not detected (Not Detect) Parainfluenza 4 (PCR) Not detected (Not Detect) RSV (PCR) Not detected (Not Detect) Entero/Rhino (PCR) Not detected (Not Detect) Urine Dip Bedside Urine Glucose Negative Bedside Urine Bilirubin - Negative Bedside Urine Ketone +/- 5 Urine Specific [place] 1.005 Bedside Urine Occult Blood +++ Bedside Urine pH 7.5 Bedside Urine Protein + 30 Bedside Urine Urobilinogen - Negative Bedside Urine Nitrite + Positive Bedside Urine Leukocytes - Negative Esterase Imaging Data CT scan - chest: Radiologist's Impression: [address] [id number] Scan ReportSigned Patient: Chon Fiore#: [id number]: 4Acct:[id number]/Sex: 75 / FDate of Service: 08/28/20Loc: EDAccession Number: [id number] Procedure: CT angio chest PE protocol Ordering Provider: Ashwin Roth D.O. PROCEDURE: CT ANGIO CHEST PE PROTOCOL INDICATIONS: short of breath, fatigue, critical dimer, hypoxemia, tachyca TECHNIQUE: After the administration of intravenous contrast, 2 mm thick sections acquired from the pulmonary apices to the posterior costophrenic angles. 3-dimensional maximum intensity projection (MIP) coronal and sagittal reformats were then acquired through the thorax. For radiation dose reduction, the following was used: automated exposure control, adjustment of mA and/or kV according to patient size. COMPARISON: [facility], CT, CT CHEST ABDOMEN PELVIS WITH CONTRAST, 03/23/2020, 9:42. [facility], CT, CT CHEST ABDOMEN PELVIS WITH CONTRAST, 11/29/2019, 12:38. [place], [place], PET NECK TO MID THIGH, 07/12/2019, 9:24. [place], PET NECK TO MID THIGH, 01/14/2019, 13:47. [facility], CT, CT CHEST ABDOMEN PELVIS WITH CONTRAST, 06/18/2020, 13:11. [place], [place], MD BONE SCAN WHOLE BODY, 06/21/2020, 15:26. FINDINGS: Image quality: Excellent. Pulmonary arteries: Pulmonary arteries are normal in size, and demonstrate no intraluminal filling defects to suggest central pulmonary embolism. Lungs and pleura: There is left pneumonectomy with expected postsurgical changes. Patchy ground-glass infiltrates in right lung. Chronic airspace opacity in right middle lobe is unchanged. No pleural effusions or pneumothorax. Central and peripheral airways are patent. Mediastinum: Heart size is normal, without pericardial effusion. No mediastinal or hilar adenopathy. Thoracic aorta is normal in caliber and enhancement. Esophagus is normal in caliber, without hiatal hernia. Bones and chest wall: Sclerotic bone lesions are present involving sternum, thoracic spine, and multiple ribs consistent with osseous metastases.. Ribs and thoracic spine appear intact throughout. Thyroid gland is normal. No axillary or supraclavicular adenopathy. Abdomen: Visualized upper abdominal solid organs appear normal in the early arterial phase of enhancement. IMPRESSION: 1. No evidence for pulmonary embolism. 2. Patchy ground-glass infiltrates consistent with pneumonia or pneumonitis. 3. Stable airspace opacity in right middle lobe. 4. Sclerotic osseous metastases. Dictated by: Veronica Sewell M.D. on 08/28/2020 at 11:58 Approved by: Veronica Sewell M.D. on 08/28/2020 at 12:30 [facility] Narrative Medical decision making narrative: 75-year-old female oxygen dependent with lung cancer, status post lobectomy, on chemotherapy presents with increased oxygen requirements, cough, shortness of breath, subjective fever, tachycardia and tachypnea. She has had a bump in her white blood cells and imaging demonstrating bilateral pneumonia. Pulmonary embolism considered but ruled out with CT angiogram. She requires hospitalization due to septic presentation, immunocompromise, chronic disease, high port score for treatment and stabilization of her condition. Discharge Plan Departure Patient Disposition: Admitted As Inpatient Clinical Impression: Pneumonia Qualifiers: Pneumonia type: due to unspecified organism Laterality: bilateral Lung location: unspecified part of lung Qualified Code(s): J18.9 - Pneumonia, unspecified organism Sepsis Qualifiers: Sepsis type: sepsis due to unspecified organism Sepsis acute organ dysfunction status: with acute organ dysfunction Severe sepsis acute organ dysfunction type: acute respiratory failure Acute respiratory failure type: unspecified Severe sepsis shock status: without septic shock Qualified Code(s): A41.9 - Sepsis, unspecified organism Admit Date/Time: 08/28/20 16:03 Admit Provider: Baldo Neri
--- NOTE | 2020-08-28 10:27 | DI.RAD.S_ITS ---
PROCEDURE: XR CHEST 1V INDICATIONS: short of breath, weak TECHNIQUE: One view of the chest was acquired. COMPARISON: [facility], CR, XR CHEST 1V, 08/18/2020, 6:47. FINDINGS: Surgical changes and devices: Left-sided pneumonectomy. Lungs and pleura: Left-sided pneumonectomy. No right pleural effusion is no pneumothoraces. Mild patchy opacity within the right perihilar location and right lung base. Mediastinum: Left-sided cardiomediastinal shift. Mediastinal contours otherwise appear normal. Heart size is normal. Bones and chest wall: No suspicious bony lesions. Overlying soft tissues appear unremarkable. IMPRESSION: 1. Right perihilar and right lung base pneumonia. Continued plain film surveillance is recommended to ensure resolution, and to exclude underlying or central malignancy. 2. Postsurgical sequelae. Dictated by: Ti Ma M.D. on 08/28/2020 at 10:55 Approved by: Ti Ma M.D. on 08/28/2020 at 10:56
[2020-08-28 10:39] LABS: Add Manual Diff / Slide Review NO; Basophils Absolute Auto 100 /uL (0-100); Basophils Percent Auto 0.9 % (0-2); Eosinophils Absolute Auto 200 /uL (0-450); Eosinophils Percent Auto 1.1 % (2-4); Hematocrit 25.2 % (36-46); Hemoglobin 7.9 g/dL (12.0-16.0); Lymphocytes Absolute Auto 2300 /uL (1100-4500); Lymphocytes Percent Auto 13.9 % (25-40); Mean Corpuscular HGB Conc 31.6 % (30-36); Mean Corpuscular Hemoglobin 25.1 PG (26-34); Mean Corpuscular Volume 79.5 fL (80-100); Monocytes Absolute Auto 1300 /uL (0-900); Monocytes Percent Auto 7.9 % (3-14); Neutrophils Absolute Auto 12600 /uL (1500-7000); Neutrophils Percent Auto 76.2 % (50-75); Platelet Count 299 X10^3/uL (150-400); Red Blood Cell Count 3.16 X10^6/uL (4.0-5.2); White Blood Cell Count 16.5 X10^3/uL (4.5-11.0)
[2020-08-28 10:51] LABS: BUN Creatinine Ratio 24.5 (6-22); Blood Urea Nitrogen 12 mg/dL (7-17); Calcium 9.7 mg/dL (8.4-10.2); Carbon Dioxide 30 mmol/L (22-32); Chloride 101 mmol/L (98-107); Creatine Kinase 22 U/L (30-135); Estimated Glomerular Filt Rate > 60.0 mL/min (>60); Glucose 152 mg/dL (80-110); HEMOLYSIS < 15 (0-50); Magnesium 2.4 mg/dL (1.6-2.3); Potassium 4.1 mmol/L (3.4-5.1); Sodium 131 mmol/L (137-145)
[2020-08-28 10:58] LABS: D Dimer 6743 ng/mL (<230)
[2020-08-28 10:59] LABS: NT-proBNP (BNP-Adult 18+) 334 pg/mL (<450)
[2020-08-28 11:03] LABS: Troponin I < 0.012 ng/mL (0.01-0.034)
[2020-08-28 11:07] LABS: Procalcitonin 0.17 ng/mL (<0.5)
--- NOTE | 2020-08-28 11:32 | DI.CT.S_ITS ---
PROCEDURE: CT ANGIO CHEST PE PROTOCOL INDICATIONS: short of breath, fatigue, critical dimer, hypoxemia, tachyca TECHNIQUE: After the administration of intravenous contrast, 2 mm thick sections acquired from the pulmonary apices to the posterior costophrenic angles. 3-dimensional maximum intensity projection (MIP) coronal and sagittal reformats were then acquired through the thorax. For radiation dose reduction, the following was used: automated exposure control, adjustment of mA and/or kV according to patient size. COMPARISON: [facility], CT, CT CHEST ABDOMEN PELVIS WITH CONTRAST, 03/23/2020, 9:42. [facility], CT, CT CHEST ABDOMEN PELVIS WITH CONTRAST, 11/29/2019, 12:38. [place], [place], PET NECK TO MID THIGH, 07/12/2019, 9:24. [place], PET NECK TO MID THIGH, 01/14/2019, 13:47. [facility], CT, CT CHEST ABDOMEN PELVIS WITH CONTRAST, 06/18/2020, 13:11. [place], [place], OR BONE SCAN WHOLE BODY, 06/21/2020, 15:26. FINDINGS: Image quality: Excellent. Pulmonary arteries: Pulmonary arteries are normal in size, and demonstrate no intraluminal filling defects to suggest central pulmonary embolism. Lungs and pleura: There is left pneumonectomy with expected postsurgical changes. Patchy ground-glass infiltrates in right lung. Chronic airspace opacity in right middle lobe is unchanged. No pleural effusions or pneumothorax. Central and peripheral airways are patent. Mediastinum: Heart size is normal, without pericardial effusion. No mediastinal or hilar adenopathy. Thoracic aorta is normal in caliber and enhancement. Esophagus is normal in caliber, without hiatal hernia. Bones and chest wall: Sclerotic bone lesions are present involving sternum, thoracic spine, and multiple ribs consistent with osseous metastases.. Ribs and thoracic spine appear intact throughout. Thyroid gland is normal. No axillary or supraclavicular adenopathy. Abdomen: Visualized upper abdominal solid organs appear normal in the early arterial phase of enhancement. IMPRESSION: 1. No evidence for pulmonary embolism. 2. Patchy ground-glass infiltrates consistent with pneumonia or pneumonitis. 3. Stable airspace opacity in right middle lobe. 4. Sclerotic osseous metastases. Dictated by: Veronica Sewell M.D. on 08/28/2020 at 11:58 Approved by: Veronica Sewell M.D. on 08/28/2020 at 12:30
--- NOTE | 2020-08-28 11:39 | PC.NURSE ---
Pt's daughter is here visiting from [place], she is the POA. I got all of her information to have the doctor call her back.
[2020-08-28 11:48] LABS: HCO3 ABG 26 mmol/L (22-26); PCO2 ABG 38.1 mmHg (35-45); PO2 ABG 122 mmHg (80-100); TCO2 ABG 27 mmol/L (21-31); pH ABG 7.45 (7.35-7.45)
[2020-08-28 11:49] LABS: Oxygen Saturation ABG 99 % (95-100)
--- NOTE | 2020-08-28 11:54 | PC.NURSE ---
Pt was taken to CT and moved over to the CT table and began to experience a lot of pain. They got the CT but afterwards the pt is stating that she no longer wants any more tests. Pt was consoled and is staying for the time being with her caregiver by her side. made aware of situation
[2020-08-28 11:57] LABS: Fractionated Inspired Oxygen 28
[2020-08-28] MEDS: AMPICILLIN/SULBACTAM 3 GM 3 GM in SODIUM CHLORIDE 0.9% 100 ML IV (14:10)
[2020-08-28] MEDS: SODIUM CHLORIDE 0.9% 1,000 ML 1000 ML IV (14:10)
[2020-08-28 15:22] LABS: Amorphous Sediment Urine 1+; Bacteria Urine Moderate (10-30); Culture Indicated Urine Specimen Cultured; RBC Urine 0-1/HPF (0-5/HPF); Squamous Epithelial Cell Urine 1-5 /HPF (0-5/HPF); WBC Urine 5-10/HPF (0-5/HPF)
--- NOTE | 2020-08-28 15:24 | PM.HP.1 ---
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 for COVID pneumonia and bacterial pneumonia and recent admission for upper GI bleeding but no endoscopy performed given history of pneumonectomy and stability who presented with shortness of breath and weakness since this morning. Patient recently learned of her being diagnosed with lung cancer yesterday evening and she feels incredibly sad about this. She denies recent, fever, chills, chest pain, cough, sputum production, dyspnea prior to this more than her usual baseline. She was discharged on twice daily omeprazole, had a bowel movement this morning that family stated was mixed with melenotic appearing and normal brown stool. In the emergency room, patient was tachycardic, tachypnic with labile blood pressures. Initially she was on 3-4 L of oxygen up from her usual 2 but this improved to 100% on2 L with initial treatments in the ER. WBC 16.5, Hg 7.9 (down slightly from 8.9 on discharge). Sodium was 131, but remainer of chemistries were unremarkable including troponin which was negative. Procalcitonin was 0.17. UA with 5-10 WBC and moderate bacteria. She was given a dose of zosyn and admitted to medicine. Respiratory panel negative. Patient History Medical History Cancer Chronic anemia Chronic respiratory failure Hypertension Metastatic lung cancer (metastasis from lung to other site) Pneumonia due to COVID-19 virus Surgical History H/O pneumonectomy Family & Social History Family History Father Natural with unknown cause Social History: household members spouse Safety & Behavioral: Feels Safe in Current Yes Environment Tobacco & Substance use: Smoking Status Never smoker alcohol intake never Substance Use Type does not use Meds Home Medications and Allergies Home Medications Medication Instructions Recorded Confirmed Type amlodipine [Norvasc] 5 mg PO DAILY 08/18/20 08/18/20 History gabapentin 100 mg PO TID 08/18/20 08/18/20 History lorlatinib 25 mg PO DAILY 08/18/20 08/18/20 History metoprolol tartrate 25 mg PO BID 08/18/20 08/18/20 History omeprazole 40 mg PO BID 90 Days #180 cap 08/20/20 Rx Allergies Allergy/AdvReac Type Severity Reaction Status Date / Time No Known Drug Allergies Allergy Verified 08/28/20 10:31 Review of Systems Review of Systems Narrative: All other systems reviewed with the patient and are negative unless otherwise stated. Exam Vital Signs (past 8 hours): - 08/28/20 10:30 08/28/20 10:31 08/28/20 11:00 Temperature 98.3 F Pulse Rate 103 H 106 H 101 H Respiratory Rate 28 H 22 30 H Blood Pressure 121/61 115/58 L 117/62 Pulse Oximetry 100 100 100 08/28/20 11:30 08/28/20 11:58 08/28/20 12:00 Temperature Pulse Rate 105 H 108 H 105 H Respiratory Rate 28 H 27 H 28 H Blood Pressure 125/62 165/83 H Pulse Oximetry 100 100 100 08/28/20 12:30 08/28/20 12:34 08/28/20 13:00 Temperature Pulse Rate 113 H 113 H 104 H Respiratory Rate 32 H 27 H 27 H Blood Pressure 125/61 107/55 L Pulse Oximetry 98 99 100 Oxygen Delivery Method Nasal Cannula Oxygen Flow Rate 2 Narrative Exam Narrative: en: Frail elderly female, no acute distress, mildly anxious, fatigued. HEENT: Normocephalic atraumatic extraocular muscles are intact oropharynx reveals dry mucous members neck is soft Lungs: Decreased breath sounds, scattered rhonchi over the right lung, decreased breath sounds over the left lung CV: RRR no m/r/g. Abdomen: Soft nontender nondistended Extremities: No edema or joint effusions. Neuro exam: Cranial nerves 2-12 are intact, strength is symmetric and equal, sensation grossly intact reflexes are equal Psychiatric exam: Patient is awake and alert, answers questions appropriately Objective ECG Impression: Sinus tachycardia Possible Right ventricular hypertrophy, non specific t wave abnormality V3 Abnormal ECG Imaging CT scan - chest: Radiologist's impression: IMPRESSION: 1. No evidence for pulmonary embolism. 2. Patchy ground-glass infiltrates consistent with pneumonia or pneumonitis. 3. Stable airspace opacity in right middle lobe. 4. Sclerotic osseous metastases. Chest x-ray: Radiologist's impression: PROCEDURE: XR CHEST 1V INDICATIONS: short of breath, weak TECHNIQUE: One view of the chest was acquired. COMPARISON: [facility], CR, XR CHEST 1V, 08/18/2020, 6:47. FINDINGS: Surgical changes and devices: Left-sided pneumonectomy. Lungs and pleura: Left-sided pneumonectomy. No right pleural effusion is no pneumothoraces. Mild patchy opacity within the right perihilar location and right lung base. Mediastinum: Left-sided cardiomediastinal shift. Mediastinal contours otherwise appear normal. Heart size is normal. Bones and chest wall: No suspicious bony lesions. Overlying soft tissues appear unremarkable. IMPRESSION: 1. Right perihilar and right lung base pneumonia. Continued plain film surveillance is recommended to ensure resolution, and to exclude underlying or central malignancy. 2. Postsurgical sequelae Labs Result Diagrams: 08/28/20 10:22 08/28/20 10:22 Labs: Laboratory Results - last 24 hr 08/28/20 08/28/20 08/28/20 10:22 10:22 10:22 WBC 16.5 H RBC 3.16 L Hgb 7.9 L Hct 25.2 L MCV 79.5 L MCH 25.1 L MCHC 31.6 RDW 17.0 H Plt Count 299 Neut % (Auto) 76.2 H Lymph % (Auto) 13.9 L [place] % (Auto) 7.9 Eos % (Auto) 1.1 L Baso % (Auto) 0.9 Neut # (Auto) 31595 H Lymph # (Auto) 2300 [place] # (Auto) 1300 H Eos # (Auto) 200 Baso # (Auto) 100 D-Dimer 6743 H ABG pH ABG pCO2 ABG pO2 ABG HCO3 ABG Total CO2 ABG O2 Saturation ABG Base Excess FiO2 Sodium Potassium Chloride Carbon Dioxide BUN Creatinine Estimated GFR BUN/Creatinine Ratio Glucose Lactate Calcium Magnesium Total Creatine Kinase CK-MB (CK-2) CK-MB (CK-2) Rel Index Troponin I NT-Pro-B Natriuret Pep 334 Procalcitonin 0.17 Urine RBC Urine WBC Ur Squamous Epith Cells Amorphous Sediment Urine Bacteria Ur Culture Indicated? 08/28/20 08/28/20 08/28/20 10:22 10:27 11:33 WBC RBC Hgb Hct MCV MCH MCHC RDW Plt Count Neut % (Auto) Lymph % (Auto) [place] % (Auto) Eos % (Auto) Baso % (Auto) Neut # (Auto) Lymph # (Auto) [place] # (Auto) Eos # (Auto) Baso # (Auto) D-Dimer ABG pH 7.45 ABG pCO2 38.1 ABG pO2 122 H ABG HCO3 26 ABG Total CO2 27 ABG O2 Saturation 99 ABG Base Excess 2.0 FiO2 28 Sodium 131 L Potassium 4.1 Chloride 101 Carbon Dioxide 30 BUN 12 Creatinine 0.49 L Estimated GFR > 60.0 BUN/Creatinine Ratio 24.5 H Glucose 152 H Lactate 1.0 Calcium 9.7 Magnesium 2.4 H Total Creatine Kinase 22 L CK-MB (CK-2) TNP CK-MB (CK-2) Rel Index TNP Troponin I < 0.012 NT-Pro-B Natriuret Pep Procalcitonin Urine RBC Urine WBC Ur Squamous Epith Cells Amorphous Sediment Urine Bacteria Ur Culture Indicated? 08/28/20 15:00 WBC RBC Hgb Hct MCV MCH MCHC RDW Plt Count Neut % (Auto) Lymph % (Auto) [place] % (Auto) Eos % (Auto) Baso % (Auto) Neut # (Auto) Lymph # (Auto) [place] # (Auto) Eos # (Auto) Baso # (Auto) D-Dimer ABG pH ABG pCO2 ABG pO2 ABG HCO3 ABG Total CO2 ABG O2 Saturation ABG Base Excess FiO2 Sodium Potassium Chloride Carbon Dioxide BUN Creatinine Estimated GFR BUN/Creatinine Ratio Glucose Lactate Calcium Magnesium Total Creatine Kinase CK-MB (CK-2) CK-MB (CK-2) Rel Index Troponin I NT-Pro-B Natriuret Pep Procalcitonin Urine RBC 0-1/hpf Urine WBC 5-10/hpf H Ur Squamous Epith Cells 1-5 /hpf Amorphous Sediment 1+ Urine Bacteria Moderate (10-30) H Ur Culture Indicated? Specimen cultured Assessment & Plan Assessment & Plan narrative: 75-year-old female admitted to the hospital for shortness of breath and likely community acquired pneumonia. 1. Community acquired pneumonia, acute, present on admission - CXR showing new R perihilar and R lower lobe pneumonia. CT showing bilateral ground glass opacities. New leukocytosis to 16 which had resolved at time of discharge from previous. No systemic symptoms but patient is high risk due to her prior pneumonectomy. PSI score is 136. - given unasyn in the ER, will continue ceftriaxone and azithromycin. - Somewhat confounding is that the patient's was recently diagnosed with cancer and she is quite saddened and anxious about this diagnosis. 2. Acute on chronic blood loss anemia secondary to presumed upper GI bleeding, present on admission, stable -recent discharge from [facility] on 08/20 for presumed UGI bleeding. No endoscopy performed as this was deemed high risk given patient's prior pneumonectomy and her h/h had stabilized. Slightly decreased to 7.9 from 8.9 on discharge. Will continue protonix during admission. Consider transfusion if no improvement in fatigue with antibiotic therapy. Goal Hg >7. 3. Metastatic lung cancer -patient with bony Mets in significant pain,Ibuprofen was discontinued last admission and the patient was started on fentanyl patch with very good control of her pain. Will continue this here along with tylenol. Will hold active chemo medications given acute infection being treated. 4. Chronic hypoxic respiratory failure -continue oxygen to maintain O2 saturations between 90-96%. Currently on home 2L. 5. Hypertension, chronic -continue home medications 6. severe protein calorie malnutrition. - account information clerk unable to see patient due to timing of admission last time, will re-order consultation. She has recent severe weight loss and active malignancy. 7. asymptomatic bacteuria, present on admission - patient with + UA on admission, 5-10 WBC/hpf and bacteria. Urine culture sent. No active symptoms. However any bacteuria will be adequately covered by treatment for above pneumonia. 8. HTN, will hold home medications at this time given pneumonia. Restart if blood pressures rise. Code: DNR as discussed with the patient. Surrogate decision maker is her . DVT: SCDs given likely GI bleeding and anemia. Dispo: Admitted under inpatient status.
[2020-08-28 16:33] LABS: Adenovirus Not Detected (Not Detect); B. parapertussis Not Detected (Not Detecte); Bordetella pertussis Not Detected (Not Detecte); Chlamydophila pneumoniae Not Detected (Not Detect); Coronavirus 229E Not Detected (Not Detect); Coronavirus HKU1 Not Detected (Not Detect); Coronavirus NL 63 Not Detected (Not Detect); Coronavirus OC43 Not Detected (Not Detect); Human Metapneumovirus Not Detected (Not Detect); Human Rhinovirus/Enterovirus Not Detected (Not Detect); Influenza A Not Detected (Not Detect); Influenza B Not Detected (Not Detect); Mycoplasma pneumoniae Not Detected (Not Detect); Parainfluenza Virus 1 Not Detected (Not Detect); Parainfluenza Virus 2 Not Detected (Not Detect); Parainfluenza Virus 3 Not Detected (Not Detect); Parainfluenza Virus 4 Not Detected (Not Detect); Respiratory Syncytial Virus Not Detected (Not Detect); SARS- CoV-2 Not Detected (Not Detecte)
[2020-08-28] MEDS: fentaNYL 25 MCG/PATCH TOP (17:39)
[2020-08-28] MEDS: CEFTRIAXONE 1 GM/50 ML FROZ.PIGGY IV (17:40)
[2020-08-28] MEDS: AZITHROMYCIN 500 MG in DEXTROSE 5% IN WATER 250 ML IV (18:36)
[2020-08-28] MEDS: GABAPENTIN 100 MG CAPSULE PO (21:01)
[2020-08-28] MEDS: PANTOPRAZOLE 40 MG TABLET PO (21:01)
[2020-08-29] VITALS (17 sets, daily range): BP systolic 109–149; BP diastolic 63–89; PULSE 89–106; RESP 12–20; TEMP 36.3–37.3; O2SAT 92–99
[2020-08-29] MEDS: PANTOPRAZOLE 40 MG TABLET PO (06:12)
[2020-08-29 06:20] LABS: BUN Creatinine Ratio 27.8 (6-22); Blood Urea Nitrogen 10 mg/dL (7-17); Calcium 9.4 mg/dL (8.4-10.2); Carbon Dioxide 31 mmol/L (22-32); Chloride 103 mmol/L (98-107); Estimated Glomerular Filt Rate > 60.0 mL/min (>60); Glucose 110 mg/dL (80-110); HEMOLYSIS < 15 (0-50); Magnesium 2.1 mg/dL (1.6-2.3); Sodium 134 mmol/L (137-145)
[2020-08-29 06:22] LABS: Mean Corpuscular HGB Conc 31.9 % (30-36); Mean Corpuscular Hemoglobin 25.2 PG (26-34); Mean Corpuscular Volume 78.9 fL (80-100); Platelet Count 274 X10^3/uL (150-400); Red Cell Distribution Width 17.2 % (11.6-14.8); White Blood Cell Count 11.6 X10^3/uL (4.5-11.0)
[2020-08-29 06:26] LABS: Add Manual Diff / Slide Review YES; Hematocrit 21.3 % (36-46)
[2020-08-29 06:28] LABS: Hemoglobin 6.8 g/dL (12.0-16.0)
[2020-08-29 06:58] LABS: Neutrophils Absolute Manual 7772 /uL (3000-5900); Nucleated Red Blood Cells 2 #/Diff; Total Cells Counted 100
[2020-08-29 07:00] LABS: Hypochromasia 1+; Polychromasia 2+; Target Cells 1+
[2020-08-29 07:01] LABS: Anisocytosis 2+; Poikilocytosis 2+
[2020-08-29] MEDS: GABAPENTIN 100 MG CAPSULE PO ×2 (08:30→14:45)
[2020-08-29] MEDS: SODIUM CHLORIDE 0.9% FLUSH 10 ML IV (08:30)
[2020-08-29] MEDS: ACETAMINOPHEN 325 MG TABLET 650 MG PO ×2 (11:52→15:28)
--- NOTE | 2020-08-29 12:23 | DIET.PN ---
Dietary Progress Note Assessment: 75y F admitted for R lower lobe pneumonia c weakness and anemia (suspected upper GIB) referred to nutrition for malnutrition assessment. Chronically ill appearing woman on 2L O2 sitting up in hospital bed has hx of metastatic lung cancer s/p pneumenectomy c mets to bones and brain was hospitalized in June for covid19 pnumonia. Pt H&H dropping c hbg 6.8 this morning requiring transfusion. Pt lives c spouse and cared for by children. Pt reports low appetite secondary to difficulty alternating breathing c chewing and recent covid19 pneumonia. Pt intolerant to most cold foods, prefers warm, likes soups. HT: 152.4cm WT: 49kg (-5.3% in 2w, severe) UBW: 51kg 2w ago BMI: 21.1 Labs: hgb 6.8 L Nutrition Diagnosis: Severe Acute PCM r/t weakness and acute oncologic process aeb 5.3% unintentional weight loss in 2w (severe), pt unable to consume adequate PO secondary to difficulty breathing, pt has metastatic lung cancer to brain and bones, currently hospitalized c lower lobe pneumonia and had coronovirus requiring hospitalization 2mo ago, pt appears chronically ill and thin c moderate fat losses throughout. Interventions: 1. Recc double portions soft cooked protein c meal trays limiting filler foods. Diet Order: Easy chew EER: 1500kcal (30kcal/kg per PCM), 70g PRO (1.4g/kg per PCM, pneumonia) Monitoring/Evaluations: POs, weight
--- NOTE | 2020-08-29 15:30 | CM.DANOTE ---
Patient is a 75 year old female who was admitted on 08/28/20 for Weakness. Pt has [employer] and [employer] for insurance and her PCP is Dr. Tamica Goodwin. EMR was reviewed. Per MD, pt with hx of lung Cancer that has metastisized to her bone and brain and hx of pneumonectomy. Pt admitted with pneumonia and anemia/G.I. Bleed and received a couple units of blood. On 2L oxygen. SW met briefly bedside with pt and explained role and pt confirms that she still lives at home in [place] with her spouse and her adult son Torito is her beekeeper farmer paid caregiver. Patient is a full code and is actively seeking treatment at [facility] with oncology. Pt tested positive for COVID a couple months ago and has had progressive weakness since her COVID dx. Patient reported she has not been able to walk or take care of her needs (bathing meal prep, chores) for the last month after her COVID diagnosis. Patient has home 02, uses a manual wheel chair and has a FWW. Pt was recently admitted on 08/20/20 and was able to d/c home with family assist and [facility] . Pt and family adamant that pt to d/c home with family assist and agreeable with [facility] . Per MD, pt and family agreeable with d/c home today and d/c orders just placed late afternoon and plan for home this evening. Pt's spouse just dx with lung cancer himself a couple days ago and pt quite sad and upset for him as well. SW called [facility] and confirmed pt is open for RN and ST scheduled to eval pt this week. SW alerted them that d/c summary may not be available by end of shift in 20 min and they will follow up tomorrow if needed. Plan: SW to follow for plan of pt d/c home with family this evening and son is beekeeper farmer caregiver for pt and [facility]. DI Moore Discharge Planning/Care Management CM Discharge Assessment Start: 08/29/20 15:27 Freq: Status: Active Protocol: Document 08/29/20 15:28 BF (Rec: 08/29/20 15:30 BF [id number]) Discharge Planning Assessment Assigned Coal Getter DI Bass DPOA/Assigned Designee Name spouse and son Advance Directives? No Advance Directives on File No History Provided By Patient,Family Member,Medical Record Has Patient been admitted in last 30 No days? Prior Living Arrangements House Household Members spouse Type of transporation used prior to Relies on Others admit Independent with ADL's No Is patient alert and oriented? Yes: some memory issues Needs Assistance With Bathing,Meal Prep,Managing Medications,Home Chores / Shopping Caregiver for Another No Comment Home Barriers to Discharge No Discharge Plan Home Transportation Arrangement Son and/or will provide transportation on D/C Referrals Initiated None needed Review Status In Process Please Provide Date Initial DC 08/29/20 Assessment Was Performed Next Review Type Continued Stay Review
--- NOTE | 2020-08-29 17:28 | PM.DS.1 ---
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 for COVID pneumonia and bacterial pneumonia and recent admission for upper GI bleeding but no endoscopy performed given history of pneumonectomy and stability who presented with shortness of breath and weakness since this morning. Patient recently learned of her being diagnosed with lung cancer yesterday evening and she feels incredibly sad about this. She denies recent, fever, chills, chest pain, cough, sputum production, dyspnea prior to this more than her usual baseline. She was discharged on twice daily omeprazole, had a bowel movement this morning that family stated was mixed with melenotic appearing and normal brown stool. In the emergency room, patient was tachycardic, tachypnic with labile blood pressures. Initially she was on 3-4 L of oxygen up from her usual 2 but this improved to 100% on2 L with initial treatments in the ER. WBC 16.5, Hg 7.9 (down slightly from 8.9 on discharge). Sodium was 131, but remainer of chemistries were unremarkable including troponin which was negative. Procalcitonin was 0.17. UA with 5-10 WBC and moderate bacteria. She was given a dose of zosyn and admitted to medicine. Respiratory panel negative. Discharge Providers Provider Date of admission: 08/28/20 16:03 Discharge Date: 08/29/20 Primary care physician: Tamica Goodwin MD Consults: 08/28/20 10:27 Consult to Respiratory Therapy Evaluate & Treat Comment: Physician Instructions: Evaluate and treat 08/28/20 17:06 Consult to Dietitian, Adult Routine Comment: Reason For Exam: protein calorie malnutrition 08/29/20 15:45 Consult to Home Health Routine Comment: Pneumonia/anemia/G.I. Bleed Reason For Exam: Margrete [facility] LEDBETTER RN/ST for d/c home Discharge provider: Karla Peterson MD Summary Hospital Course Discharge Diagnosis: 1. Right lower lobe pneumonia 2. Anemia, likely related to chemotherapy 3. Metastatic lung cancer with Mets to the bone and brain 4. Hypertension 5. GERD 6. Severe protein calorie malnutrition Hospital Course: The patient is a 75-year-old female with metastatic lung cancer admitted to the hospital with abrupt onset shortness of breath. She typically is on 2 L of oxygen. She was requiring 3-[address] scan confirmed a right lower lobe infiltrate. The patient was also found to be markedly anemic. She received 2 units of packed RBCs. In addition the patient was treated with IV ceftriaxone and azithromycin for her pneumonia. The following day her breathing improved. She was switch from IV to oral antibiotics. The patient tolerated the transfusion. She was deemed appropriate for discharge and arrangements were made for her to discharge home. Status at Discharge Cognitive/behavioral status at discharge: oriented Functional status at discharge: independent ambulation Overall status at discharge: patient is back to baseline Time Spent with Patient Time spent: Less than 30 minutes Exam Vital Signs (past 8 hours): - 08/29/20 09:35 08/29/20 09:51 08/29/20 11:00 Temperature 98.4 F 98.4 F Pulse Rate 97 H 97 H Respiratory Rate 16 16 Blood Pressure 124/67 124/67 Pulse Oximetry 97 99 08/29/20 11:38 08/29/20 12:14 08/29/20 12:16 Temperature 99.2 F 99.2 F 99.2 F Pulse Rate 92 H 92 H 92 H Respiratory Rate 16 16 16 Blood Pressure 122/65 122/65 122/65 Pulse Oximetry 08/29/20 12:37 08/29/20 12:49 08/29/20 13:00 Temperature 98.2 F 98.1 F 98.1 F Pulse Rate 99 H 99 H 99 H Respiratory Rate 20 14 14 Blood Pressure 132/72 124/65 124/65 Pulse Oximetry 99 08/29/20 14:54 08/29/20 15:15 Temperature 98.2 F 97.4 F L Pulse Rate 90 99 H Respiratory Rate 20 19 Blood Pressure 132/72 149/89 H Pulse Oximetry 98 99 Oxygen Delivery Method Room Air Oxygen Flow Rate 2 Narrative Exam Narrative: Ill-appearing elderly female lying in bed Lungs: Decreased breath sounds on the left, scattered rhonchi on the right Cardiac exam: Regular rate and rhythm normal S1-S2 Abdomen: Soft nontender nondistended Extremities: No edema Objective Labs Result Diagrams: 08/29/20 05:45 08/29/20 05:45 Labs: Laboratory Results - last 24 hr 08/29/20 08/29/20 08/29/20 05:45 05:45 06:42 WBC 11.6 H RBC 2.70 L Hgb 6.8 L* Hct 21.3 L MCV 78.9 L MCH 25.2 L MCHC 31.9 RDW 17.2 H Plt Count 274 Neut % (Auto) Not Reportable Lymph % (Auto) Not Reportable [place] % (Auto) Not Reportable Eos % (Auto) Not Reportable Baso % (Auto) Not Reportable Lymph # (Auto) Not Reportable [place] # (Auto) Not Reportable Baso # (Auto) Not Reportable Total Counted 100 Seg Neutrophils % 67.0 Lymphocytes % (Manual) 12.0 L Atypical Lymphs % 7.0 H Monocytes % (Manual) 12.0 H Eosinophils % (Manual) 1.0 L Basophils % (Manual) 1.0 Neutrophils # (Manual) 7772 H Nucleated RBCs 2 H RBC Morphology See below Polychromasia 2+ H Hypochromasia 1+ H Poikilocytosis 2+ H Anisocytosis 2+ H Target Cells 1+ H Sodium 134 L Potassium 4.0 Chloride 103 Carbon Dioxide 31 BUN 10 Creatinine 0.36 L Estimated GFR > 60.0 BUN/Creatinine Ratio 27.8 H Glucose 110 Calcium 9.4 Magnesium 2.1 Blood Type B Positive Antibody Screen Negative Crossmatch See Detail PFSH Medical History Cancer Chronic anemia Chronic respiratory failure Hypertension Metastatic lung cancer (metastasis from lung to other site) Pneumonia due to COVID-19 virus Surgical History H/O pneumonectomy Family History Father Natural with unknown cause Social History household members: spouse Smoking Status: Never smoker alcohol intake: never Discharge Assessment & Plan Assessment and Plan Assessment: 1. Right lower lobe pneumonia 2. Anemia 3. Metastatic lung cancer 4. Severe protein calorie malnutrition Plan of Treatment: Antibiotics as prescribed Discharge home Follow-up with oncology as scheduled Discharge Plan Discharge Plan Patient Disposition: Home Discharge orders & Medications Prescriptions: New levofloxacin 750 mg tablet 750 mg PO DAILY 5 Days RF: 0 Continued lorlatinib 25 mg Tablet 25 mg PO DAILY RF: 0 amlodipine [Norvasc] 5 mg Tablet 5 mg PO DAILY RF: 0 gabapentin 100 mg Capsule 100 mg PO TID RF: 0 metoprolol tartrate 25 mg Tablet 25 mg PO BID RF: 0 omeprazole 40 mg capsule,delayed release(DR/EC) 40 mg PO BID 90 Days Qty: 180 RF: 0 Follow up/Referrals: Tamica Goodwin MD [Primary Care Provider] - Diet/Activity/Treatments Diet: Diet as Tolerated Discharge Data Primary Care Provider: Tamica Goodwin Quality VTE Deep Vein Thrombosis/Pulmonary Embolism Present on Admission: No
--- NOTE | 2020-08-30 09:10 | CM.DPNOTE ---
Faxed DC Summary to [facility] on 08/30/20 and received fax confirmation. Nirmala Haskins CM Asst.
== END 2020-08-29 16:06 | disposition home health service (06) | DRG 193 ==
LOC: ED 15:35 → AC 16:03
PROVIDERS: Admitting Provider Internal Medicine; Emergency Provider Emergency Medicine; PCP Internal Medicine; Referring Provider Emergency Medicine; Visit Provider Internal Medicine
DX: J18.9 Pneumonia, unspecified organism (principal); E43 Unspecified severe protein-calorie malnutrition; C34.92 Malignant neoplasm of unspecified part of left bronchus or lung; J96.11 Chronic respiratory failure with hypoxia; C79.51 Secondary malignant neoplasm of bone; C79.31 Secondary malignant neoplasm of brain; D64.81 Anemia due to antineoplastic chemotherapy; T45.1X5A Adverse effect of antineoplastic and immunosuppressive drugs, initial encounter; Z99.81 Dependence on supplemental oxygen; R82.71 Bacteriuria; Z68.21 Body mass index [BMI] 21.0-21.9, adult; Z86.16 Personal history of COVID-19; Z20.822 Contact with and (suspected) exposure to COVID-19; I10 Essential (primary) hypertension; Z66 Do not resuscitate
CPT/HCPCS: 36415; 36430; 36600; 71045; 71275; 80048; 81003; 81015; 82550; 82805; 83605; 83735; 83880; 84145; 84484; 85007; 85025; 85379; 86850; 86900; 86901; 87040; 87077; 87086; 87633; 93005; 96361; 96365; 99285; P9016; J0295; Q9967

== ENCOUNTER 2020-09-14 13:37 | Inpatient (IN) | payer MEDICARE, OTHER, SELFPAY ==
[2020-08-28 17:49] VITALS: BMI 21.1
[2020-09-14] VITALS (22 sets, daily range): BP systolic 108–134; BP diastolic 56–70; PULSE 91–187; RESP 18–32; TEMP 36.7–37.7; O2SAT 81–100; BMI 22.6
--- NOTE | 2020-09-14 13:48 | DI.CT.S_ITS ---
PROCEDURE: CT HEAD/BRAIN WO CON INDICATIONS: syncope TECHNIQUE: Noncontrast 4.5 mm thick angled axial sections acquired from the foramen magnum to the vertex, with coronal and sagittal reformats. For radiation dose reduction, the following was used: automated exposure control, adjustment of mA and/or kV according to patient size. COMPARISON: None. FINDINGS: Image quality: Excellent. CSF spaces: Basal cisterns are patent. No extra-axial fluid collections. Ventricles are normal in size and shape. Brain: No midline shift. No intracranial masses or hemorrhage. [place]-white matter interface is normal. Skull and face: Calvarium and visualized facial bones are intact, without suspicious lesions. Sinuses: Visualized sinuses and mastoids are clear. IMPRESSION: No acute intracranial abnormality. Dictated by: Fernando Benoit M.D. on 09/14/2020 at 14:06 Approved by: Fernando Benoit M.D. on 09/14/2020 at 14:08
--- NOTE | 2020-09-14 13:48 | DI.RAD.S_ITS ---
PROCEDURE: XR CHEST 1V INDICATIONS: chest pain TECHNIQUE: One view of the chest was acquired. COMPARISON: [facility], CT, CT ANGIO CHEST PE PROTOCOL, 08/28/2020, 11:36. [facility], CR, XR CHEST 1VW (PORTABLE), 10/16/2016, 17:51. [facility], CR, XR CHEST 1V, 08/28/2020, 10:41. [facility], CR, XR CHEST 1V, 08/18/2020, 6:47. [facility], CT, CT CHEST ABDOMEN PELVIS WITH CONTRAST, 06/18/2020, 13:11. FINDINGS: Surgical changes and devices: None. Lungs and pleura: Lungs are unchanged with expected postoperative distortion of prior left pneumonectomy. There is hyperexpansion of the right lung, with mediastinal structure shifted leftward as expected. With reference to the recent prior CT scanning 08/28/20 there appears to be mild alveolar infiltration at the right upper lobe and the right lower lobe, potentially cardiogenic or inflammatory in origin. This pattern was not clearly present in early 08/28/20.. No pleural effusions or pneumothorax. Mediastinum: Mediastinal contours appear normal. Heart size is normal. Bones and chest wall: No suspicious bony lesions. Overlying soft tissues appear unremarkable. IMPRESSION: Longstanding postoperative changes of left pneumonectomy. Hyperexpansion of right lung. New finding of alveolar infiltration within right upper lobe in the right lower lobe, worrisome for representing either infectious etiology or cardiogenic alveolar edema. Dictated by: Davonte Schmitz M.D. on 09/14/2020 at 14:18 Approved by: Davonte Schmitz M.D. on 09/14/2020 at 14:23
[2020-09-14 14:27] LABS: Add Manual Diff / Slide Review NO; Basophils Absolute Auto 200 /uL (0-100); Basophils Percent Auto 0.9 % (0-2); Eosinophils Absolute Auto 200 /uL (0-450); Eosinophils Percent Auto 0.8 % (2-4); Hematocrit 20.3 % (36-46); Lymphocytes Absolute Auto 3200 /uL (1100-4500); Lymphocytes Percent Auto 12.1 % (25-40); Mean Corpuscular Hemoglobin 26.2 PG (26-34); Mean Corpuscular Volume 84.3 fL (80-100); Monocytes Absolute Auto 1100 /uL (0-900); Monocytes Percent Auto 4.4 % (3-14); Neutrophils Absolute Auto 21400 /uL (1500-7000); Neutrophils Percent Auto 81.8 % (50-75); Platelet Count 226 X10^3/uL (150-400); Red Blood Cell Count 2.41 X10^6/uL (4.0-5.2); Red Cell Distribution Width 24.1 % (11.6-14.8); White Blood Cell Count 26.1 X10^3/uL (4.5-11.0)
[2020-09-14 14:28] LABS: INR 1.1 (0.9-1.3); Prothrombin Time 12.4 SECONDS (10.1-12.7)
[2020-09-14 14:30] LABS: Hemoglobin 6.3 g/dL (12.0-16.0)
[2020-09-14 14:31] LABS: PTT Partial Thromboplastin Tim 26 SECONDS (26.4-36.2)
[2020-09-14 14:32] LABS: Lactate (Lactic Acid) 1.4 mmol/L (0.7-2.1)
[2020-09-14 14:34] LABS: Alanine Aminotransferase 18 IU/L (<35); Albumin 3.7 g/dL (3.5-5.0); Alkaline Phosphatase 1107 U/L (38-126); Aspartate Aminotransferase 109 IU/L (14-36); BUN Creatinine Ratio 38.2 (6-22); Blood Urea Nitrogen 21 mg/dL (7-17); Calcium 9.7 mg/dL (8.4-10.2); Carbon Dioxide 29 mmol/L (22-32); Chloride 101 mmol/L (98-107); Creatine Kinase 22 U/L (30-135); Estimated Glomerular Filt Rate > 60.0 mL/min (>60); Globulin 3.8 g/dL (1.7-4.1); Glucose 134 mg/dL (80-110); HEMOLYSIS < 15 (0-50); Lipase 230 U/L (23-300); Magnesium 2.5 mg/dL (1.6-2.3); Potassium 4.1 mmol/L (3.4-5.1); Sodium 134 mmol/L (137-145); Total Protein 7.5 g/dL (6.3-8.2)
[2020-09-14] MEDS: ONDANSETRON 4 MG/2 ML INJ IV (14:38)
[2020-09-14 14:43] LABS: NT-proBNP (BNP-Adult 18+) 2020 pg/mL (<450)
[2020-09-14 14:44] LABS: Anisocytosis 3+; Poikilocytosis 2+; Target Cells 1+
[2020-09-14 14:45] LABS: D Dimer 6877 ng/mL (<230); Troponin I 0.015 ng/mL (0.01-0.034)
--- NOTE | 2020-09-14 14:45 | ED.SYNCOPE ---
HPI - Syncope General Chief Complaint: Syncope Stated Complaint: Near syncope Time Seen by Provider: 09/14/20 13:56 Source: patient Mode of arrival: EMS Limitations: no limitations History of Present Illness HPI narrative: This is a 75-year-old female comes in with complaint. Her wheelchair when her son reports the patient went limp and listed to 1 side eyes were open but not within lasted approximately 15 seconds. She was nausea vomit x1 and then 2 additional times in route. O2 room air was 81% placed on O2 which moved to 5 L. 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 Hemoglobin was suspected to be likely related to chemotherapy. She did not have EGD or colonoscopy at that time she did receive 2 units of packed red blood cells as well as IV Rocephin and azithromycin. She also has a history of hypertension, GERD and severe protein calorie malnutrition. Patient states she has felt gradually worsening shortness of breath. She denies fevers or chills. She denies any current nausea. She states her pain is currently controlled in terms of her metastatic disease. She has noted her stools have been dark. She has not noted any bright red blood. Related Data Home Medications Medication Instructions Recorded Confirmed gabapentin 100 mg PO TID 08/18/20 09/14/20 lorlatinib 25 mg PO DAILY 08/18/20 09/14/20 metoprolol tartrate 25 mg PO BID 08/18/20 09/14/20 Previous Rx's Medication Instructions Recorded omeprazole 40 mg PO BID 90 Days #180 cap 08/20/20 Allergies Allergy/AdvReac Type Severity Reaction Status Date / Time No Known Drug Allergies Allergy Verified 08/28/20 10:31 Review of Systems Review of Systems ROS Unobtainable: All systems reviewed & are unremarkable except as noted in HPI and below Patient History Medical History Cancer Chronic anemia Chronic respiratory failure Hypertension Metastatic lung cancer (metastasis from lung to other site) Pneumonia due to COVID-19 virus Surgical History H/O pneumonectomy Family History Father Natural with unknown cause Social History household members: spouse Smoking Status: Never smoker alcohol intake: never Smoking Status: Never smoker alcohol intake frequency: 0-2 drinks per day Substance Use Type: does not use Exam Narrative Exam Narrative: GENERAL: Alert and oriented x three, thin, frail elderly female in mild distress. HEENT: Head normocephalic, atraumatic, EOMI, pupils reactive, face symmetric, moist mucous membranes NECK: Supple, full range of motion CARDIOVASCULAR: Regular rate and rhythm without murmurs, rubs or gallops. RESPIRATORY: Breath sounds equal bilaterally, no wheezes rales or rhonchi. ABDOMEN: Soft, nontender. Normoactive bowel sounds all 4 quadrants. No guarding or rebound, rigidity, no mass. Stool occult is negative although stool sample is adequate. : No CVA tenderness EXTREMITIES: Patient has pain with palpation or movement of her left hip, patient has known metastases to this area. Exam is consistent with prior exam on last visit with myself. no clubbing or edema. NVI intact all four extremities. NEUROLOGICAL: Cranial nerves II through XII grossly intact. Moving all extremities SKIN: Warm, dry, no petechiae, no rashes or lesions. Initial Vital Signs Initial Vital Signs: Vital Signs Pulse Rate 91 H 09/14/20 13:43 Respiratory Rate 18 09/14/20 13:43 Blood Pressure 117/56 L 09/14/20 13:43 Pulse Oximetry 81 L 09/14/20 13:43 Course Orders Ordered: ED Orders 09/14/20 13:48 CT head/brain wo con Stat XR chest 1V Stat EKG-12 Lead Stat 09/14/20 13:50 Urinalysis and Microscopic Stat 09/14/20 14:14 Complete Blood Count AUTO DIFF Stat Comprehensive Metabolic Panel Stat D Dimer Stat Lactate (Lactic Acid) Stat Lipase Stat Magnesium Stat NT-proBNP (BNP-Adult 18+) Stat Partial Thromboplastin Time Stat Procalcitonin Stat Prothrombin Time INR Stat Troponin & CK Cardiac Panel Stat 09/14/20 14:27 COVID19 - ADMIT (HAND [employer]ER swab/PCR) Stat 09/14/20 14:46 Packed Cells Stat Type and Screen Stat 09/14/20 15:17 CT angio chest PE protocol Stat Discontinued Medications Ondansetron HCl (Ondansetron 4 Mg/2 Ml Inj) 4 mg IV NOW ONE Stop: 09/14/20 13:49 Last Admin: 09/14/20 14:38 Dose: 4 mg Documented by: VENTURA Reevaluation(s) Reevaluation #1: patient and I reviewed patient's CT findings and labs. All questions were answered. She does not wish for endoscopy or colonoscopy for further evaluation for her bleeding as she realizes a high risk procedure and she does not wish to proceed she is comfortable with transfusion. Consultations Consultation #1: Spoke with Dr. Neri who is happy to accept unless patient wishes to further evaluate her bleeding which would include EGD or colonoscopy. If she did she would recommend transfer as are general surgery team felt uncomfortable performing that here with her multiple medical comorbidities. I did discuss with patient updated Dr. Neri who accepts for observation. Vital Signs Vital signs: Vital Signs - 8 hr 09/14/20 13:43 09/14/20 15:14 09/14/20 15:15 Temperature Pulse Rate 91 H 187 H 156 H Respiratory Rate 18 Blood Pressure 117/56 L 117/56 L Pulse Oximetry 81 L 100 100 09/14/20 15:30 09/14/20 15:45 09/14/20 16:00 Temperature Pulse Rate 105 H 106 H 100 H Respiratory Rate 24 28 H 31 H Blood Pressure 118/60 113/63 Pulse Oximetry 100 100 100 09/14/20 16:15 09/14/20 16:24 09/14/20 16:30 Temperature 98.0 F Pulse Rate 99 H 106 H 108 H Respiratory Rate 31 H 32 H 32 H Blood Pressure 113/63 108/58 L Pulse Oximetry 100 96 09/14/20 16:41 09/14/20 16:43 09/14/20 16:45 Temperature 98.6 F Pulse Rate 102 H 105 H 104 H Respiratory Rate 30 H 31 H 32 H Blood Pressure 117/58 L 117/58 L Pulse Oximetry 99 100 09/14/20 17:00 09/14/20 17:15 Temperature 98.6 F Pulse Rate 105 H 109 H Respiratory Rate 30 H 24 Blood Pressure 118/59 L Pulse Oximetry 98 97 MDM - Syncope Lab Data Attestation: I reviewed the patient's lab results. Result diagrams: 09/14/20 14:14 09/14/20 14:14 Labs: Lab Results 09/14/20 09/14/20 09/14/20 Range/Units 14:14 14:14 14:14 WBC 26.1 H (4.5-11.0) X10^3/uL RBC 2.41 L (4.0-5.2) X10^6/uL Hgb 6.3 L* (12.0-16.0) g/dL Hct 20.3 L* (36-46) % MCV 84.3 (80-100) fL MCH 26.2 (26-34) PG MCHC 31.0 (30-36) % RDW 24.1 H (11.6-14.8) % Plt Count 226 (150-400) X10^3/uL Neut % (Auto) 81.8 H (50-75) % Lymph % (Auto) 12.1 L (25-40) % [place] % (Auto) 4.4 (3-14) % Eos % (Auto) 0.8 L (2-4) % Baso % (Auto) 0.9 (0-2) % Neut # (Auto) 49969 H (0234-9202) /uL Lymph # (Auto) 3200 (4651-0070) /uL [place] # (Auto) 1100 H (0-900) /uL Eos # (Auto) 200 (0-450) /uL Baso # (Auto) 200 H (0-100) /uL RBC Morphology Not Reportable Poikilocytosis 2+ H Anisocytosis 3+ H Target Cells 1+ H PT 12.4 (10.1-12.7) SECONDS INR 1.1 (0.9-1.3) APTT 26 L (26.4-36.2) SECONDS D-Dimer (<230) ng/mL Sodium 134 L (137-145) mmol/L Potassium 4.1 (3.4-5.1) mmol/L Chloride 101 (98-107) mmol/L Carbon Dioxide 29 (22-32) mmol/L BUN 21 H (7-17) mg/dL Creatinine 0.55 (0.52-1.04) mg/dL Estimated GFR > 60.0 (>60) mL/min BUN/Creatinine Ratio 38.2 H (6-22) Glucose 134 H (80-110) mg/dL Lactate (0.7-2.1) mmol/L Calcium 9.7 (8.4-10.2) mg/dL Magnesium 2.5 H (1.6-2.3) mg/dL Total Bilirubin 1.0 (0.2-1.3) mg/dL AST 109 H (14-36) IU/L ALT 18 (<35) IU/L Alkaline Phosphatase 1107 H (38-126) U/L Total Creatine Kinase 22 L (30-135) U/L CK-MB (CK-2) TNP CK-MB (CK-2) Rel Index TNP Troponin I 0.015 (0.01-0.034) ng/mL NT-Pro-B Natriuret Pep (<450) pg/mL Total Protein 7.5 (6.3-8.2) g/dL Albumin 3.7 (3.5-5.0) g/dL Globulin 3.8 (1.7-4.1) g/dL Albumin/Globulin Ratio 1.0 (1.0-2.8) Lipase 230 (23-300) U/L Procalcitonin 0.21 (<0.5) ng/mL SARS-CoV-2 (PCR) (Negative) Blood Type Antibody Screen Crossmatch 09/14/20 09/14/20 09/14/20 Range/Units 14:14 14:14 14:14 WBC (4.5-11.0) X10^3/uL RBC (4.0-5.2) X10^6/uL Hgb (12.0-16.0) g/dL Hct (36-46) % MCV (80-100) fL MCH (26-34) PG MCHC (30-36) % RDW (11.6-14.8) % Plt Count (150-400) X10^3/uL Neut % (Auto) (50-75) % Lymph % (Auto) (25-40) % [place] % (Auto) (3-14) % Eos % (Auto) (2-4) % Baso % (Auto) (0-2) % Neut # (Auto) (0838-6129) /uL Lymph # (Auto) (5772-3680) /uL [place] # (Auto) (0-900) /uL Eos # (Auto) (0-450) /uL Baso # (Auto) (0-100) /uL RBC Morphology Poikilocytosis Anisocytosis Target Cells PT (10.1-12.7) SECONDS INR (0.9-1.3) APTT (26.4-36.2) SECONDS D-Dimer 6877 H (<230) ng/mL Sodium (137-145) mmol/L Potassium (3.4-5.1) mmol/L Chloride (98-107) mmol/L Carbon Dioxide (22-32) mmol/L BUN (7-17) mg/dL Creatinine (0.52-1.04) mg/dL Estimated GFR (>60) mL/min BUN/Creatinine Ratio (6-22) Glucose (80-110) mg/dL Lactate 1.4 (0.7-2.1) mmol/L Calcium (8.4-10.2) mg/dL Magnesium (1.6-2.3) mg/dL Total Bilirubin (0.2-1.3) mg/dL AST (14-36) IU/L ALT (<35) IU/L Alkaline Phosphatase (38-126) U/L Total Creatine Kinase (30-135) U/L CK-MB (CK-2) CK-MB (CK-2) Rel Index Troponin I (0.01-0.034) ng/mL NT-Pro-B Natriuret Pep 2020 H (<450) pg/mL Total Protein (6.3-8.2) g/dL Albumin (3.5-5.0) g/dL Globulin (1.7-4.1) g/dL Albumin/Globulin Ratio (1.0-2.8) Lipase (23-300) U/L Procalcitonin (<0.5) ng/mL SARS-CoV-2 (PCR) (Negative) Blood Type Antibody Screen Crossmatch 09/14/20 09/14/20 Range/Units 14:27 14:46 WBC (4.5-11.0) X10^3/uL RBC (4.0-5.2) X10^6/uL Hgb (12.0-16.0) g/dL Hct (36-46) % MCV (80-100) fL MCH (26-34) PG MCHC (30-36) % RDW (11.6-14.8) % Plt Count (150-400) X10^3/uL Neut % (Auto) (50-75) % Lymph % (Auto) (25-40) % [place] % (Auto) (3-14) % Eos % (Auto) (2-4) % Baso % (Auto) (0-2) % Neut # (Auto) (4701-4064) /uL Lymph # (Auto) (6214-4966) /uL [place] # (Auto) (0-900) /uL Eos # (Auto) (0-450) /uL Baso # (Auto) (0-100) /uL RBC Morphology Poikilocytosis Anisocytosis Target Cells PT (10.1-12.7) SECONDS INR (0.9-1.3) APTT (26.4-36.2) SECONDS D-Dimer (<230) ng/mL Sodium (137-145) mmol/L Potassium (3.4-5.1) mmol/L Chloride (98-107) mmol/L Carbon Dioxide (22-32) mmol/L BUN (7-17) mg/dL Creatinine (0.52-1.04) mg/dL Estimated GFR (>60) mL/min BUN/Creatinine Ratio (6-22) Glucose (80-110) mg/dL Lactate (0.7-2.1) mmol/L Calcium (8.4-10.2) mg/dL Magnesium (1.6-2.3) mg/dL Total Bilirubin (0.2-1.3) mg/dL AST (14-36) IU/L ALT (<35) IU/L Alkaline Phosphatase (38-126) U/L Total Creatine Kinase (30-135) U/L CK-MB (CK-2) CK-MB (CK-2) Rel Index Troponin I (0.01-0.034) ng/mL NT-Pro-B Natriuret Pep (<450) pg/mL Total Protein (6.3-8.2) g/dL Albumin (3.5-5.0) g/dL Globulin (1.7-4.1) g/dL Albumin/Globulin Ratio (1.0-2.8) Lipase (23-300) U/L Procalcitonin (<0.5) ng/mL SARS-CoV-2 (PCR) Negative (Negative) Blood Type B Positive Antibody Screen Negative Crossmatch See Detail Imaging Data CT scan - head: Radiologist's Impression: [address] [id number] Scan ReportSigned Patient: Palmer Fiore#: [id number]: 1945cct:[id number]/Sex: 75 / FDate of Service: 09/14/20Loc: EDAccession Number: [id number] Procedure: CT head/brain wo con Ordering Provider: Adilene Manley D.O. PROCEDURE: CT HEAD/BRAIN WO CON INDICATIONS: syncope TECHNIQUE: Noncontrast 4.5 mm thick angled axial sections acquired from the foramen magnum to the vertex, with coronal and sagittal reformats. For radiation dose reduction, the following was used: automated exposure control, adjustment of mA and/or kV according to patient size. COMPARISON: None. FINDINGS: Image quality: Excellent. CSF spaces: Basal cisterns are patent. No extra-axial fluid collections. Ventricles are normal in size and shape. Brain: No midline shift. No intracranial masses or hemorrhage. [place]-white matter interface is normal. Skull and face: Calvarium and visualized facial bones are intact, without suspicious lesions. Sinuses: Visualized sinuses and mastoids are clear. IMPRESSION: No acute intracranial abnormality. Dictated by: Fernando Benoit M.D. on 09/14/2020 at 14:06 Approved by: Fernando Benoit M.D. on 09/14/2020 at 14:08 Chest x-ray: Radiologist's Impression: [address] [id number] ReportSigned Patient: Palmer Fiore#: [id number]: 4Acct:[id number]/Sex: 75 / FDate of Service: 09/14/20Loc: EDAccession Number: [id number] Procedure: XR chest 1V Ordering Provider: Adilene Manley D.O. PROCEDURE: XR CHEST 1V INDICATIONS: chest pain TECHNIQUE: One view of the chest was acquired. COMPARISON: [facility], CT, CT ANGIO CHEST PE PROTOCOL, 08/28/2020, 11:36. [facility], CR, XR CHEST 1VW (PORTABLE), 10/16/2016, 17:51. [facility], CR, XR CHEST 1V, 08/28/2020, 10:41. [facility], CR, XR CHEST 1V, 08/18/2020, 6:47. [facility], CT, CT CHEST ABDOMEN PELVIS WITH CONTRAST, 06/18/2020, 13:11. FINDINGS: Surgical changes and devices: None. Lungs and pleura: Lungs are unchanged with expected postoperative distortion of prior left pneumonectomy. There is hyperexpansion of the right lung, with mediastinal structure shifted leftward as expected. With reference to the recent prior CT scanning 08/28/20 there appears to be mild alveolar infiltration at the right upper lobe and the right lower lobe, potentially cardiogenic or inflammatory in origin. This pattern was not clearly present in early 08/28/20.. No pleural effusions or pneumothorax. Mediastinum: Mediastinal contours appear normal. Heart size is normal. Bones and chest wall: No suspicious bony lesions. Overlying soft tissues appear unremarkable. IMPRESSION: Longstanding postoperative changes of left pneumonectomy. Hyperexpansion of right lung. New finding of alveolar infiltration within right upper lobe in the right lower lobe, worrisome for representing either infectious etiology or cardiogenic alveolar edema. Dictated by: Davonte Schmitz M.D. on 09/14/2020 at 14:18 Approved by: Davonte Schmitz M.D. on 09/14/2020 at 14:23 CT scan - chest: Radiologist's Impression: Chon Fiore 75 F [address] [id number] Scan ReportSigned Patient: Chon FioreMR#: [id number]: 4Acct:[id number]/Sex: 75 / FDate of Service: 09/14/20Loc: EDAccession Number: [id number] Procedure: CT angio chest PE protocol Ordering Provider: Adilene Manley D.O. PROCEDURE: CT ANGIO CHEST PE PROTOCOL INDICATIONS: sob, hypoxia, + ca, recent pna in august TECHNIQUE: After the administration of intravenous contrast, 2 mm thick sections acquired from the pulmonary apices to the posterior costophrenic angles. 3-dimensional maximum intensity projection (MIP) coronal and sagittal reformats were then acquired through the thorax. For radiation dose reduction, the following was used: automated exposure control, adjustment of mA and/or kV according to patient size. COMPARISON: [facility], CR, XR CHEST 1V, 08/28/2020, 10:41. [facility], CR, XR CHEST 1V, 09/14/2020, 13:56. [facility], CT, CT CHEST ABDOMEN PELVIS WITH CONTRAST, 06/18/2020, 13:11. [facility], CT, CT ANGIO CHEST PE PROTOCOL, 08/28/2020, 11:36. FINDINGS: Image quality: Excellent. Pulmonary arteries: Pulmonary arteries are normal in size, and demonstrate no intraluminal filling defects to suggest central pulmonary embolism. Lungs and pleura: Mild patchy opacity in the right lung is mildly increased compared to 08/28/2020. For example: -Right upper lobe ground-glass and nodular opacity, (5/40), unchanged. -Right lower lobe nodular opacity, (5/124), new. -Right lower lobe medial, (5/128), increased. Left pneumonectomy. No pleural effusions or pneumothorax. Central and peripheral airways are patent. Mediastinum: Heart size is normal, without pericardial effusion. No mediastinal or hilar adenopathy. Thoracic aorta is normal in caliber and enhancement. Esophagus is normal in caliber, with moderate hiatal hernia. Bones and chest wall: Extensive osseous metastases. T8 compression fracture, unchanged. Ribs and thoracic spine appear intact throughout. Calcified right thyroid nodule. No axillary or supraclavicular adenopathy. Abdomen: Visualized upper abdominal solid organs appear normal in the early arterial phase of enhancement. IMPRESSION: 1. No pulmonary embolism. 2. Mild patchy airspace opacity in the right lung which is mildly increased compared to CT 08/28/2020. This could be due to infectious/inflammatory etiology. No pleural effusion. Left pneumonectomy. 3. Diffuse osseous metastases. Prior T8 compression fracture, unchanged. Dictated by: Jj Rdz M.D. on 09/14/2020 at 16:01 Approved by: Jj Rdz M.D. on 09/14/2020 at 16:15 ECG Data Attestation: I personally reviewed and interpreted this ECG as follows: Prior ECG tracings: available for review Interpretation: Rate of 101 P are 170 QRS 80 QTC 433. No acute ST elevation depression appreciated. Patient has prior from 08/28/2020 which appears similar. MDM Narrative Medical decision making narrative: This is a 75-year-old female comes emergency department with complaint of syncopal episode and anemia. Patient was transfused 2 units and her hemoglobin down from 6.8 on the and 7.9 on August 28. Patient has known cancer with metastatic disease. She is not currently anticoagulated. She did not have endoscopy or colonoscopy during her hospital stay and her her discharge summary they suspected her anemia was related to her cancer. Stool occult is negative here. She does have a white count of 26 today with platelets of 226. She also has atypical lymphocytes and neutrophils of 7772. Patient's D-dimer is elevated which is on surprising considering her cancer. She was more hypoxic than typical so CT angiography was obtained. BNP is 2000 with a negative troponin and no acute EKG changes. A prolonged hospitalization earlier in the year secondary to COVID but has been COVID negative on her last several visits here. Discussed with hospitalist who asked if we can verify with patient if she wishes to have evaluation with endoscopy for the source of her bleeding. If she does our local GI and General surgery felt uncomfortable with her multiple medical comorbidities. If she does not wish to at this point as she realizes the high risk for endoscopy. She is open to transfusion. Dr. Neri. Discharge Plan Departure Patient Disposition: Admitted as Observation Clinical Impression: Symptomatic anemia Admit Date/Time: 09/14/20 17:21 Admit Provider: Baldo Neri
[2020-09-14 14:50] LABS: Procalcitonin 0.21 ng/mL (<0.5)
--- NOTE | 2020-09-14 15:17 | DI.CT.S_ITS ---
PROCEDURE: CT ANGIO CHEST PE PROTOCOL INDICATIONS: sob, hypoxia, + ca, recent pna in august TECHNIQUE: After the administration of intravenous contrast, 2 mm thick sections acquired from the pulmonary apices to the posterior costophrenic angles. 3-dimensional maximum intensity projection (MIP) coronal and sagittal reformats were then acquired through the thorax. For radiation dose reduction, the following was used: automated exposure control, adjustment of mA and/or kV according to patient size. COMPARISON: [facility], CR, XR CHEST 1V, 08/28/2020, 10:41. [facility], CR, XR CHEST 1V, 09/14/2020, 13:56. [facility], CT, CT CHEST ABDOMEN PELVIS WITH CONTRAST, 06/18/2020, 13:11. [facility], CT, CT ANGIO CHEST PE PROTOCOL, 08/28/2020, 11:36. FINDINGS: Image quality: Excellent. Pulmonary arteries: Pulmonary arteries are normal in size, and demonstrate no intraluminal filling defects to suggest central pulmonary embolism. Lungs and pleura: Mild patchy opacity in the right lung is mildly increased compared to 08/28/2020. For example: -Right upper lobe ground-glass and nodular opacity, (5/40), unchanged. -Right lower lobe nodular opacity, (5/124), new. -Right lower lobe medial, (5/128), increased. Left pneumonectomy. No pleural effusions or pneumothorax. Central and peripheral airways are patent. Mediastinum: Heart size is normal, without pericardial effusion. No mediastinal or hilar adenopathy. Thoracic aorta is normal in caliber and enhancement. Esophagus is normal in caliber, with moderate hiatal hernia. Bones and chest wall: Extensive osseous metastases. T8 compression fracture, unchanged. Ribs and thoracic spine appear intact throughout. Calcified right thyroid nodule. No axillary or supraclavicular adenopathy. Abdomen: Visualized upper abdominal solid organs appear normal in the early arterial phase of enhancement. IMPRESSION: 1. No pulmonary embolism. 2. Mild patchy airspace opacity in the right lung which is mildly increased compared to CT 08/28/2020. This could be due to infectious/inflammatory etiology. No pleural effusion. Left pneumonectomy. 3. Diffuse osseous metastases. Prior T8 compression fracture, unchanged. Dictated by: Jj Rdz M.D. on 09/14/2020 at 16:01 Approved by: Jj Rdz M.D. on 09/14/2020 at 16:15
[2020-09-14 15:31] LABS: COVID19 - ADMIT (NP swab/PCR) Negative (Negative)
[2020-09-14 21:13] LABS: Magnesium 2.4 mg/dL (1.6-2.3)
[2020-09-15] VITALS (12 sets, daily range): BP systolic 91–128; BP diastolic 44–73; PULSE 81–113; RESP 15–30; TEMP 36.4–37.1; O2SAT 96–100; BMI 22.6
[2020-09-15] MEDS: PANTOPRAZOLE 40 MG VIAL IV ×3 (00:10→21:01)
[2020-09-15 01:14] LABS: Hemoglobin 10.1 g/dL (12.0-16.0)
[2020-09-15 01:18] LABS: Hematocrit 31.1 % (36-46)
--- NOTE | 2020-09-15 01:43 | PM.HP.1 ---
History of Present Illness History of Present Illness Date Patient Seen: 09/14/20 Time Patient Seen: 22:42 Chief complaint: Near syncope Narrative: Ms. 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 Patient was sitting in her wheelchair or speaking with family when she went limp and lean to the side with her eyes open unresponsive for approximately 15 seconds. Patient had nausea and vomiting x1. EMS found the patient hypoxic with an oxygen saturation of 81% and responded well to oxygen therapy. The patient has had 2 hospitalization in the last month on 08/18/2020 for GI bleeding thought to be related to chemotherapy and then again on 08/28/2020 for pneumonia. The patient reports increasing shortness of breath with no prior nausea vomiting and endorses having dark stools. She reports no complaints of headaches or dizziness, no visual changes, nasal congestion or sore throat. She reports no complaints of pain including no chest pain or palpitations. She is chronically short of breath and uses home O2 at 2 liters/minute at baseline. She denies epigastric or abdominal pain, has no abdominal cramping, diarrhea or constipation. The patient has metastases to the right hip and states her pain is controlled, she uses a wheelchair for mobilization. Upon admission the patient has heart rate 91, blood pressure 149/89, respirations 18 saturating 100% on 5 liters/minutes nasal cannula. Chest x-ray is obtained: Longstanding postoperative changes of left pneumonectomy. Hyperexpansion of right lung, new alveolar infiltration within right upper lobe and in the right lower lobe. A CT angiogram of the chest finds no PE, mild patchy airspace opacity. Head CT finds no acute intracranial processes. On laboratory analysis the patient has white count of 26.1 with elevated neutrophils of 21,400 and monocytes of 1100. The patient's coagulation studies are within normal limits. On chemistry she has a sodium of 134, BUN of 21 and creatinine of 0.55. Magnesium is 2.5. On liver functions has a total bilirubin of 1.0, AST of 109, ALT of 18 and alkaline phosphatase of 1107. Her total CK is 22 and a troponin is 0.015. ProBNP is 2020. Procalcitonin is 0.21. Endoscopy was discussed with the patient's daughter is her DPOA and from prior discussions she has been told patient should not have surgery related to pneumonectomy including endoscopy there for surgery is not consult. Patient's type and screen will transfuse 2 units of packed red cells. Patient is given Zofran 4 mg for nausea. She is admitted to the hospitalist service for symptomatic anemia. Patient History Medical History Cancer Chronic anemia Chronic respiratory failure Hypertension Metastatic lung cancer (metastasis from lung to other site) Pneumonia due to COVID-19 virus Surgical History H/O pneumonectomy Family & Social History Family History (Updated 09/15/20 @ 02:06 by MICHELLE Romo) Father Natural with unknown cause Mother Medical history unknown Daughter Lupus Family/Other Diabetes mellitus Social History: household members spouse Prior Living Arrangements House Safety & Behavioral: Feels Safe in Current Yes Environment Been Physically Hurt or No Threatened By a Person Suicidal Ideation Description None Suicide Plan Description No Plan Tobacco & Substance use: Smoking Status Never smoker alcohol intake never alcohol intake frequency 0-2 drinks per day Substance Use Type does not use Meds Home Medications and Allergies Home Medications Medication Instructions Recorded Confirmed Type gabapentin 100 mg PO TID 08/18/20 09/14/20 History lorlatinib 25 mg PO DAILY 08/18/20 09/14/20 History metoprolol tartrate 25 mg PO BID 08/18/20 09/14/20 History omeprazole 40 mg PO BID 90 Days #180 cap 08/20/20 09/14/20 Rx Allergies Allergy/AdvReac Type Severity Reaction Status Date / Time No Known Drug Allergies Allergy Verified 08/28/20 10:31 Review of Systems Review of Systems ROS: Yes All systems reviewed with the patient and are negative except as otherwise documented Exam Vital Signs (past 8 hours): - 09/14/20 17:45 09/14/20 20:14 09/14/20 20:23 Temperature 99.9 F H 99.7 F H 99.7 F H Pulse Rate 118 H 118 H 118 H Respiratory Rate 24 18 18 Blood Pressure 134/61 124/64 124/64 Pulse Oximetry 96 09/14/20 20:40 09/14/20 23:30 09/15/20 00:00 Temperature 99.6 F 99.5 F 98.8 F Pulse Rate 112 H 118 H 113 H Respiratory Rate 20 18 15 Blood Pressure 127/65 133/70 124/65 Pulse Oximetry 98 09/15/20 00:03 Temperature 98.8 F Pulse Rate 113 H Respiratory Rate 15 Blood Pressure 124/65 Pulse Oximetry 99 Oxygen Delivery Method Nasal Cannula Oxygen Flow Rate 4.5 Narrative Exam Narrative: GENERAL APPEARANCE: well developed, BMI 22.7, lying left lateral in position of comfort in no acute distress. HEENT: Normocephalic, PERRLA, conjunctiva clear, EOMs intact without nystagmus, mucous membranes are moist and pink. NECK/THYROID: neck supple, no thyromegaly, trachea midline. LYMPH NODES: no cervical or supraclavicular lymphadenopathy. SKIN: [place], warm and dry, no visible lesions, rashes, ulcerations or petechiae. HEART: regular rate and rhythm, S1-S2, no murmur, no rubs or gallops, brisk capillary refill, no edema LUNGS: Hyper-resonance left chest, clear breath sounds right crackles right base without coarseness or wheezing no cough present CHEST: Symmetrical movement, no accessory muscle use, shallow tidal volume. ABDOMEN: Soft, no distention, no abdominal tenderness, no guarding or peritoneal signs, no organomegaly, active bowel tones. BACK: Normal curvature, nontender to palpation, back pain on percussion EXTREMITIES: Decreased range of motion, pain with movement of right hip, no deformities or joint effusions, clubbing without cyanosis. NEUROLOGIC: AAO to person and place, no lateralizing symptoms, cranial nerves II-XII grossly intact, sensation intact to light touch, hearing grossly normal to speech. PSYCH: Alert and responsive, very soft-spoken of a cooperative stable behavior Objective Labs Result Diagrams: 09/15/20 01:05 09/14/20 14:14 Labs: Laboratory Results - last 24 hr 09/14/20 09/14/20 09/14/20 14:14 14:14 14:14 WBC 26.1 H RBC 2.41 L Hgb 6.3 L* Hct 20.3 L* MCV 84.3 MCH 26.2 MCHC 31.0 RDW 24.1 H Plt Count 226 Neut % (Auto) 81.8 H Lymph % (Auto) 12.1 L [place] % (Auto) 4.4 Eos % (Auto) 0.8 L Baso % (Auto) 0.9 Neut # (Auto) 46830 H Lymph # (Auto) 3200 [place] # (Auto) 1100 H Eos # (Auto) 200 Baso # (Auto) 200 H RBC Morphology Not Reportable Poikilocytosis 2+ H Anisocytosis 3+ H Target Cells 1+ H PT 12.4 INR 1.1 APTT 26 L D-Dimer Sodium 134 L Potassium 4.1 Chloride 101 Carbon Dioxide 29 BUN 21 H Creatinine 0.55 Estimated GFR > 60.0 BUN/Creatinine Ratio 38.2 H Glucose 134 H Lactate Calcium 9.7 Magnesium 2.5 H Total Bilirubin 1.0 AST 109 H ALT 18 Alkaline Phosphatase 1107 H Total Creatine Kinase 22 L CK-MB (CK-2) TNP CK-MB (CK-2) Rel Index TNP Troponin I 0.015 NT-Pro-B Natriuret Pep Total Protein 7.5 Albumin 3.7 Globulin 3.8 Albumin/Globulin Ratio 1.0 Lipase 230 Procalcitonin 0.21 SARS-CoV-2 (PCR) Blood Type Antibody Screen Crossmatch 09/14/20 09/14/20 09/14/20 14:14 14:14 14:14 WBC RBC Hgb Hct MCV MCH MCHC RDW Plt Count Neut % (Auto) Lymph % (Auto) [place] % (Auto) Eos % (Auto) Baso % (Auto) Neut # (Auto) Lymph # (Auto) [place] # (Auto) Eos # (Auto) Baso # (Auto) RBC Morphology Poikilocytosis Anisocytosis Target Cells PT INR APTT D-Dimer 6877 H Sodium Potassium Chloride Carbon Dioxide BUN Creatinine Estimated GFR BUN/Creatinine Ratio Glucose Lactate 1.4 Calcium Magnesium Total Bilirubin AST ALT Alkaline Phosphatase Total Creatine Kinase CK-MB (CK-2) CK-MB (CK-2) Rel Index Troponin I NT-Pro-B Natriuret Pep 2020 H Total Protein Albumin Globulin Albumin/Globulin Ratio Lipase Procalcitonin SARS-CoV-2 (PCR) Blood Type Antibody Screen Crossmatch 09/14/20 09/14/20 09/14/20 14:27 14:46 20:55 WBC RBC Hgb Hct MCV MCH MCHC RDW Plt Count Neut % (Auto) Lymph % (Auto) [place] % (Auto) Eos % (Auto) Baso % (Auto) Neut # (Auto) Lymph # (Auto) [place] # (Auto) Eos # (Auto) Baso # (Auto) RBC Morphology Poikilocytosis Anisocytosis Target Cells PT INR APTT D-Dimer Sodium Potassium Chloride Carbon Dioxide BUN Creatinine Estimated GFR BUN/Creatinine Ratio Glucose Lactate Calcium Magnesium 2.4 H Total Bilirubin AST ALT Alkaline Phosphatase Total Creatine Kinase CK-MB (CK-2) CK-MB (CK-2) Rel Index Troponin I NT-Pro-B Natriuret Pep Total Protein Albumin Globulin Albumin/Globulin Ratio Lipase Procalcitonin SARS-CoV-2 (PCR) Negative Blood Type B Positive Antibody Screen Negative Crossmatch See Detail 09/15/20 01:05 WBC RBC Hgb 10.1 L Hct 31.1 L MCV MCH MCHC RDW Plt Count Neut % (Auto) Lymph % (Auto) [place] % (Auto) Eos % (Auto) Baso % (Auto) Neut # (Auto) Lymph # (Auto) [place] # (Auto) Eos # (Auto) Baso # (Auto) RBC Morphology Poikilocytosis Anisocytosis Target Cells PT INR APTT D-Dimer Sodium Potassium Chloride Carbon Dioxide BUN Creatinine Estimated GFR BUN/Creatinine Ratio Glucose Lactate Calcium Magnesium Total Bilirubin AST ALT Alkaline Phosphatase Total Creatine Kinase CK-MB (CK-2) CK-MB (CK-2) Rel Index Troponin I NT-Pro-B Natriuret Pep Total Protein Albumin Globulin Albumin/Globulin Ratio Lipase Procalcitonin SARS-CoV-2 (PCR) Blood Type Antibody Screen Crossmatch Assessment & Plan Assessment & Plan narrative: This patient has a 75-year-old female with a history of metastatic lung cancer, s/p pneumonectomy, status post brain surgery for metastases, 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 1. Near syncope, resolved upon arrival. -please be multifactorial related to: Acute on chronic anemia and acute hypoxic respiratory failure. -each processes treated as described below. 2. Acute on chronic respiratory failure with hypoxia, incompletely treated pneumonia, present on admission, active. -status post pneumonectomy for lung cancer. Patient is on chronic home O2 at 2 liters/minute. -the patient was found to be acutely hypoxic with an oxygen saturation 81% on room air equates to a PF ratio of 214 using table references. The patient continues to require oxygen at 4.5 liters/minute. -Chest x-ray is obtained: Longstanding postoperative changes of left pneumonectomy. Hyperexpansion of right lung, new alveolar infiltration within right upper lobe and in the right lower lobe. A CT angiogram of the chest finds no PE, mild patchy airspace opacity. -incompletely treated pneumonia, improved at time of discharge on 08/29/2020 however said increasing shortness of breath since. -patient has an elevated white count at 26.1 neutrophils of 21,400, procalcitonin 0.21. PSI is 126. -patient recent admission on 08/28/2020 for pneumonia treated with ceftriaxone azithromycin, ordered Zosyn 3.375 g IV every 6 hours, ordered azithromycin 500 mg IV every 24 hours for 3 doses. -recheck CBC and procalcitonin in the morning 3. Acute on chronic anemia, present on admission, active -anemias bleed be multifactorial related to chemotherapy as well as reports of dark probable melanotic stools in setting of GERD. No complaints of epigastric pain hematemesis or hematochezia. -the patient is typed and screened and transfused 2 units of packed RBCs. Will check hemoglobin and hematocrit upon completion of the 2nd unit. -ordered stool guaiac -patient with elevated proBNP at 2019 ordered 20 mg Lasix following transfusion. -patient's daughter who holds DPOA has refused option of endoscopy for definitive diagnosis. -order Protonix 40 mg twice daily. -patient will be NPO tonight, will advance to clear liquids in the morning 4. Elevated proBNP, probable acute on chronic right heart failure status post pneumonectomy, present on admission, active -patient has had elevated proBNP, previous elevated proBNP was 501 on 08/19/2020. Patient with mild crackles on auscultation. -believe the elevation is related to right-sided pre load and restrictive pulmonary vasculature status post pneumonectomy. -ordered Lasix 20 mg IV. -patient takes metoprolol tartrate 25 mg twice daily, she is NPO at this time ordered metoprolol 5 mg IV. -Will recheck proBNP in the morning. 5. Lung cancer with metastases to the right hip, chronic, stable. -ordered morphine 2-4 mg IV every 4 hours as needed for pain. -will continue the patient's home regimen of lorlatinib 25 mg daily in the morning VTE prophylaxis: SCDs, chemical prophylaxis contraindicated IV fluid: Transfuse 2 units packed RBCs then saline lock. Diet: NPO advanced to clear liquids in the morning Code status: The patient's daughter Ivon holds DPOA, designates DNR however the patient states she would like to be resuscitated. Will clarify with patient's daughter. The patient is admitted to the hospital due to the severity of her symptoms in the risk for complications and adverse events. The patient is admitted as observation with expected length of stay to be less than 2 midnights. COVID-19 COVID-19 status: Negative Result date/Date tested (Pos, Neg/Pending): 09/14/20 Scores GCS [place] coma scale eye opening: Spontaneous [place] coma scale verbal response: Confused [place] coma scale motor response: Obey commands [place] coma scale total score: 14 Quality VTE Deep Vein Thrombosis/Pulmonary Embolism Present on Admission: No MIPS - Admit I confirm the patient?s Advance Care Plan is present, Code status is documented, Surrogate decision maker is in patient?s record [If Yes, STOP here]: Yes
[2020-09-15] MEDS: METOPROLOL TARTRATE 5 MG/5 ML INJ IV (02:14)
[2020-09-15] MEDS: FUROSEMIDE 20 MG/2 ML VIAL IV (02:15)
[2020-09-15] MEDS: PIPERACILLIN-TAZO 2.25 GM/50 ML FROZ.PIGGY IV ×4 (03:43→21:05)
[2020-09-15] MEDS: MORPHINE 2 MG/ML INJ IV (03:56)
[2020-09-15] MEDS: AZITHROMYCIN 500 MG in DEXTROSE 5% IN WATER 250 ML IV ×2 (05:00→05:20)
--- NOTE | 2020-09-15 07:02 | PC.NURSE ---
Spoke with patients daughter at beginning of my shift, and at the end. she was also able to speak with the provider earlier as well.
[2020-09-15 08:00] LABS: Mean Corpuscular HGB Conc 32.3 % (30-36); Mean Corpuscular Hemoglobin 27.5 PG (26-34); Mean Corpuscular Volume 85.2 fL (80-100); Platelet Count 175 X10^3/uL (150-400); Red Blood Cell Count 3.64 X10^6/uL (4.0-5.2); Red Cell Distribution Width 17.1 % (11.6-14.8)
[2020-09-15 08:02] LABS: Add Manual Diff / Slide Review YES
[2020-09-15 08:03] LABS: Alanine Aminotransferase 15 IU/L (<35); Albumin 3.3 g/dL (3.5-5.0); Alkaline Phosphatase 826 U/L (38-126); Aspartate Aminotransferase 79 IU/L (14-36); BUN Creatinine Ratio 37.8 (6-22); Bilirubin Total 1.1 mg/dL (0.2-1.3); Blood Urea Nitrogen 17 mg/dL (7-17); Calcium 9.2 mg/dL (8.4-10.2); Carbon Dioxide 31 mmol/L (22-32); Chloride 100 mmol/L (98-107); Estimated Glomerular Filt Rate > 60.0 mL/min (>60); Globulin 3.4 g/dL (1.7-4.1); Glucose 152 mg/dL (80-110); HEMOLYSIS < 15 (0-50); Potassium 3.1 mmol/L (3.4-5.1); Sodium 134 mmol/L (137-145); Total Protein 6.7 g/dL (6.3-8.2)
[2020-09-15 08:17] LABS: Procalcitonin 0.64 ng/mL (<0.5)
[2020-09-15 08:46] LABS: Neutrophils Absolute Manual 22250 /uL (3000-5900); Nucleated Red Blood Cells 4 #/Diff; Total Cells Counted 100
[2020-09-15 08:48] LABS: Anisocytosis 2+; Poikilocytosis 2+; Polychromasia 2+; Target Cells 1+
[2020-09-15] MEDS: GABAPENTIN 100 MG CAPSULE PO ×3 (08:54→23:30)
[2020-09-15] MEDS: METOPROLOL IR 25 MG TABLET PO ×2 (08:55→23:29)
--- NOTE | 2020-09-15 11:13 | CM.DANOTE ---
Addendum entered by Sofiya Jack R.N. 09/15/20 14:16: It is also noted that patient has oxygen at home per her baseline at 2 liters. Patient has been mostly in bed, has refused to work with P.T. Will discuss with hospitalist, regarding goals of care if hospice may be appropriate. Original Note: DCP: Case received, EMR reviewed and met with patient. Introduced self and role. Patient also gave permission for this marketing planner to contact her , Harleen, for any additional information needed. Was able to obtain information from patient as well as her , regarding her baseline activity status at home prior to hospitalization. DCP assessment completed with information currently available. Patient is a 75 year old female who admitted yesterday afternoon to the care of the hospitalist team. PCP: Dr. Goodwin. Payer: confirmed: Medicare/[employer]. Patient came to the hospital via ambulance secondary to having a syncopal episode while in her wheel chair. Patient holds diagnosis of anemia, as well as respiratory failure, for her oxygen levels were low. Patient has history of lung cancer, in which she had a pneumonectomy. She also has brain cancer, and has had surgery for this as well. Patient also has bone metastasis. She has gone through chemo. Spoke to patient this morning. She was laying in bed, somewhat distracted, was on her phone. She did stated that she is mostly in a wheel chair at home, and has private caregivers coming in daily. She resides in [place] with her . She did give permission for this case picker to call him with additional information. Spoke to patient's via phone. He confirmed that patient has caregivers that come in daily. He was not able to state how many hours, but he indicated that it is through the stated. He stated that she has limited mobility secondary to her bone cancer. She has assistance with meals, showers, toileting. She does not drive. P: DCP to continue to follow. She does have P.T. orders. Will note any recommendations if needed. Patient may benefit with home health as well. Sofiya Jack RN/Commercial Credit Specialist
--- NOTE | 2020-09-15 13:17 | PT-IP ANOTE ---
talked to pt and pt's son/caregiver and obtained PLOF and home set up. pt refused PT at this time but agreed for pt to check later in the afternoon. will f/u.
--- NOTE | 2020-09-15 13:50 | PC.NURSE ---
Patient resting with eyes closed at this time, reports intermittant pain in her R hip. Refuses medication. Denies SOB at rest, currently on 2L at 98%. R lung CTA. Tele on. Pulses equal bilaterally. Skin intact. Patient tolerating clear liquid diet. IV in Left wrist, patent. Has not had BM yet. Voiding in bedpan. Patient states she feels weak. [place], caregiver was bedside this AM and dropped off patients personal wheelchair. Home Lorlatinib sent to pharmacy for verification, patient states she takes 3 tabs in the evening. Pharmacy aware. Call light in reach.
[2020-09-15] MEDS: POTASSIUM CHLORIDE 20 MEQ/15 ML UDC 40 MEQ PO (14:25)
--- NOTE | 2020-09-15 14:26 | PT-IP ANOTE ---
checked on pt again and pt refused PT. obtained PLOF and home set up this morning and per son/caregiver (Torito) pt usually stays in bed since having COVID PNA last June and only gets up to use the bedside commode but requiring max A from the caregiver. Caregiver stated that he is scheduled to assist pt for 8 hours on the weekdays but stated that he usually stays longer since pt does not have any assistance. pt stated that she has not walked since june. Caregiver stated that pt c/o R hip pain and does not transfer to sit on w/c or ambulate since having covid Pna but was modified independent prior to that. Asked pt if she wants PT to check back again tomorrow and refused. stated that she cannot do it. asked pt if she just wants PT to discharge order and agreed. informed pt that PT will inform case technician and hospitalist. Talked to nurse, case technician and hospitalist regarding pt's request to d/c PT eval order and agreed.
--- NOTE | 2020-09-15 14:59 | CM.DPC ---
Addendum entered by Sofiya Jack R.N. 09/15/20 15:18: Met with patient and son, Torito, who is at bedside. Confirmed that he is primary caregiver, and that nurse, Lydia, from [facility] is her home health nurse. Also, confirmed that patient is on oral chemotherapy. She is hoping to go home today, due to the food. Nurse, Rachel, stated that patient could possibly go home today. If patient is discharged later this pm, will update [facility], and they will just need resumption orders. Original Note: DCP Cont: It is noted that patient was admitted here on the , as well as the 20 of August. Noted, Mary TELEPHONE SURVEYOR note from last admit that has given more information. She is currently under [facility] services. Her boxing inspector is her son, Torito. She wishes to be a full code, and actively seeking treatment at [facility]. She was tested positive for COVID a couple of months ago, which caused increase in weakness ever since. She is currently COVID negative. Patient relies on her caregiver for all needs, bathing, meals, etc. She is non-ambulatory, in wheel-chair or bed. According to notes, family is wanting patient to return at home at discharge with resumption of home health. Called [facility]. Spoke to Nayla, and confirmed that patient is currently on their services for nursing. No other disciplines, at one time, she had speech, but they discharged. Nayla stated that patient is up for recertification, and if she is not discharged by tomorrow, will need new face to face. P: DCP to continue to follow. Will discuss again at team rounds. The plan is for patient to go home when she is medically stable with [facility]. Sofiya Jack RN/Milk Drier
--- NOTE | 2020-09-15 15:20 | PM.PN.1 ---
Subjective Subjective Date Patient Seen: 09/15/20 Time Patient Seen: 10:20 Interval history: Today she states she is very weak. She denies any chest pain, SOB, cough, or fever. She has had no melanotic stool here. Exam Vital Signs (past 8 hours): - 09/15/20 07:40 09/15/20 08:25 09/15/20 12:00 Temperature 97.5 F L 98 F Pulse Rate 88 88 83 Respiratory Rate 16 16 16 Blood Pressure 105/56 L 98/53 L Pulse Oximetry 99 100 98 Oxygen Delivery Method Nasal Cannula Oxygen Flow Rate 2 Narrative Exam Narrative: GENERAL APPEARANCE: chornically ill appearing, fatigued, no acute distress. HEENT: Normocephalic, PERRLA, conjunctiva clear, EOMs intact without nystagmus, mucous membranes are moist and pink. NECK/THYROID: neck supple, no thyromegaly, trachea midline. LYMPH NODES: no cervical or supraclavicular lymphadenopathy. SKIN: [place], warm and dry, no visible lesions, rashes, ulcerations or petechiae. HEART: regular rate and rhythm, S1-S2, no murmur, no rubs or gallops, brisk capillary refill, no edema LUNGS: Hyper-resonance left chest, clear breath sounds right crackles right base without coarseness or wheezing no cough present CHEST: Symmetrical movement, no accessory muscle use, shallow tidal volume. ABDOMEN: Soft, no distention, no abdominal tenderness, no guarding or peritoneal signs, no organomegaly, active bowel tones. BACK: Normal curvature, nontender to palpation, back pain on percussion EXTREMITIES: Decreased range of motion, pain with movement of right hip, no deformities or joint effusions, clubbing without cyanosis. NEUROLOGIC: AAO to person and place, no lateralizing symptoms, cranial nerves II-XII grossly intact, sensation intact to light touch, hearing grossly normal to speech. PSYCH: Alert and responsive, very soft-spoken of a cooperative stable behavior Objective Labs Result Diagrams: 09/15/20 06:55 09/15/20 06:55 Labs: Laboratory Results - last 24 hr 09/14/20 09/14/20 09/14/20 14:27 14:46 20:55 WBC RBC Hgb Hct MCV MCH MCHC RDW Plt Count Neut % (Auto) Lymph % (Auto) [place] % (Auto) Eos % (Auto) Baso % (Auto) Lymph # (Auto) [place] # (Auto) Baso # (Auto) Total Counted Seg Neutrophils % Band Neutrophils % Lymphocytes % (Manual) Atypical Lymphs % Monocytes % (Manual) Neutrophils # (Manual) Nucleated RBCs RBC Morphology Polychromasia Poikilocytosis Anisocytosis Target Cells Sodium Potassium Chloride Carbon Dioxide BUN Creatinine Estimated GFR BUN/Creatinine Ratio Glucose Calcium Magnesium 2.4 H Total Bilirubin AST ALT Alkaline Phosphatase Troponin I Total Protein Albumin Globulin Albumin/Globulin Ratio Procalcitonin SARS-CoV-2 (PCR) Negative Blood Type B Positive Antibody Screen Negative Crossmatch See Detail 09/14/20 09/15/20 09/15/20 20:55 01:05 06:55 WBC 25.0 H RBC 3.64 L Hgb 10.1 L 10.0 L Hct 31.1 L 31.0 L MCV 85.2 MCH 27.5 MCHC 32.3 RDW 17.1 H Plt Count 175 Neut % (Auto) Not Reportable Lymph % (Auto) Not Reportable [place] % (Auto) Not Reportable Eos % (Auto) Not Reportable Baso % (Auto) Not Reportable Lymph # (Auto) Not Reportable [place] # (Auto) Not Reportable Baso # (Auto) Not Reportable Total Counted 100 Seg Neutrophils % 73.0 H Band Neutrophils % 16.0 H Lymphocytes % (Manual) 3.0 L Atypical Lymphs % 2.0 H Monocytes % (Manual) 6.0 Neutrophils # (Manual) 91392 H Nucleated RBCs 4 H RBC Morphology See below Polychromasia 2+ H Poikilocytosis 2+ H Anisocytosis 2+ H Target Cells 1+ H Sodium Potassium Chloride Carbon Dioxide BUN Creatinine Estimated GFR BUN/Creatinine Ratio Glucose Calcium Magnesium Total Bilirubin AST ALT Alkaline Phosphatase Troponin I Total Protein Albumin Globulin Albumin/Globulin Ratio Procalcitonin 0.40 SARS-CoV-2 (PCR) Blood Type Antibody Screen Crossmatch 09/15/20 09/15/20 09/15/20 06:55 06:55 06:55 WBC RBC Hgb Hct MCV MCH MCHC RDW Plt Count Neut % (Auto) Lymph % (Auto) [place] % (Auto) Eos % (Auto) Baso % (Auto) Lymph # (Auto) [place] # (Auto) Baso # (Auto) Total Counted Seg Neutrophils % Band Neutrophils % Lymphocytes % (Manual) Atypical Lymphs % Monocytes % (Manual) Neutrophils # (Manual) Nucleated RBCs RBC Morphology Polychromasia Poikilocytosis Anisocytosis Target Cells Sodium 134 L Potassium 3.1 L Chloride 100 Carbon Dioxide 31 BUN 17 Creatinine 0.45 L Estimated GFR > 60.0 BUN/Creatinine Ratio 37.8 H Glucose 152 H Calcium 9.2 Magnesium Total Bilirubin 1.1 AST 79 H ALT 15 Alkaline Phosphatase 826 H Troponin I 0.060 H Total Protein 6.7 Albumin 3.3 L Globulin 3.4 Albumin/Globulin Ratio 1.0 Procalcitonin 0.64 H SARS-CoV-2 (PCR) Blood Type Antibody Screen Crossmatch [facility] Medical History Cancer Chronic anemia Chronic respiratory failure Hypertension Metastatic lung cancer (metastasis from lung to other site) Pneumonia due to COVID-19 virus Surgical History H/O pneumonectomy Family History (Updated 09/15/20 @ 02:06 by MICHELLE Romo) Father Natural with unknown cause Mother Medical history unknown Daughter Lupus Family/Other Diabetes mellitus Social History household members: spouse Smoking Status: Never smoker alcohol intake: never Assessment & Plan Assessment & Plan narrative: 75-year-old female with a history of metastatic lung cancer, s/p pneumonectomy, status post brain surgery for metastases, 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 1. Near syncope, resolved upon arrival. -multifactorial related to: Acute on chronic anemia and acute hypoxic respiratory failure. -each processes treated as described below. 2. Acute on chronic respiratory failure with hypoxia, incompletely treated pneumonia, present on admission, active. -status post pneumonectomy for lung cancer. Patient is on chronic home O2 at 2 liters/minute. -the patient was found to be acutely hypoxic with an oxygen saturation 81% on room air equates to a PF ratio of 214 using table references. The patient continues to require oxygen at 4.5 liters/minute. -Chest x-ray showed hyperexpansion of right lung, new alveolar infiltration within right upper lobe and in the right lower lobe. A CT angiogram of the chest finds no PE, mild patchy airspace opacity. -patient has an elevated white count at 26.1, bands on diff this morning, and mildly elevated procalcitonin -patient recent admission on 08/28/2020 for pneumonia. will order broad spectrum antibiotics for bacterial pneumonia with vancomycin, zosyn. order sputum cultures, and mrsa swab 3. Acute on chronic anemia, present on admission, active -anemias bleed be multifactorial related to chemotherapy as well as reports of dark probable melanotic stools in setting of GERD. No complaints of epigastric pain hematemesis or hematochezia. -the patient is typed and screened and transfused 2 units of packed RBCs. had good response to hgb >10 -ordered stool guaiac -patient with elevated proBNP at 2019 ordered 20 mg Lasix following transfusion. -patient's daughter who holds DPOA has refused option of endoscopy for definitive diagnosis. -order Protonix 40 mg twice daily. 4. Elevated proBNP, probable acute on chronic right heart failure status post pneumonectomy, present on admission, active -patient has had elevated proBNP, previous elevated proBNP was 501 on 08/19/2020. Patient with mild crackles on auscultation. -believe the elevation is related to right-sided pre load and restrictive pulmonary vasculature status post pneumonectomy. -ordered Lasix 20 mg IV initially and now down to baseline o2 requirement -patient takes metoprolol tartrate 25 mg twice daily 5. Lung cancer with metastases to the right hip, chronic, stable. -ordered morphine 2-4 mg IV every 4 hours as needed for pain. -will continue the patient's home regimen of lorlatinib 25 mg daily in the morning VTE prophylaxis: SCDs, chemical prophylaxis contraindicated IV fluid: None Diet: clears, advance as tolerated Code status: The patient's daughter Ivon holds DPOA, designates DNR however the patient states she would like to be resuscitated. Will clarify with patient's daughter. Quality VTE Deep Vein Thrombosis/Pulmonary Embolism Present on Admission: No
[2020-09-15 15:59] LABS: Troponin I 0.037 ng/mL (0.01-0.034)
[2020-09-15] MEDS: VANCOMYCIN 750 MG/150 ML PIGGYBACK 150 MG IV (16:39)
[2020-09-15] MEDS: SODIUM CHLORIDE 0.9% 500 ML IV (18:30)
[2020-09-15 20:49] LABS: Hematocrit 29.9 % (36-46); Hemoglobin 9.6 g/dL (12.0-16.0); Mean Corpuscular HGB Conc 32.2 % (30-36); Mean Corpuscular Hemoglobin 27.6 PG (26-34); Mean Corpuscular Volume 85.6 fL (80-100); Platelet Count 164 X10^3/uL (150-400); Red Blood Cell Count 3.49 X10^6/uL (4.0-5.2); Red Cell Distribution Width 18.1 % (11.6-14.8); White Blood Cell Count 19.8 X10^3/uL (4.5-11.0)
[2020-09-15] MEDS: SODIUM CHLORIDE 0.9% FLUSH 10 ML IV (21:03)
[2020-09-15] MEDS: LORLATINIB 25 MG 75 EACH PO (23:30)
[2020-09-16] VITALS (8 sets, daily range): BP systolic 102–134; BP diastolic 62–84; PULSE 77–103; RESP 16–20; TEMP 36.6–37.1; O2SAT 93–99
[2020-09-16] MEDS: PIPERACILLIN-TAZO 2.25 GM/50 ML FROZ.PIGGY IV ×4 (03:55→21:04)
[2020-09-16] MEDS: SODIUM CHLORIDE 0.9% FLUSH 10 ML IV ×3 (03:55→20:59)
[2020-09-16] MEDS: VANCOMYCIN 750 MG/150 ML PIGGYBACK 150 MG IV (04:44)
--- NOTE | 2020-09-16 07:35 | PC.NURSE ---
Reported to provider that patient is desiring regular diet.
[2020-09-16 07:43] LABS: Hematocrit 29.6 % (36-46); Hemoglobin 9.7 g/dL (12.0-16.0); Mean Corpuscular HGB Conc 32.9 % (30-36); Mean Corpuscular Volume 85.1 fL (80-100); Platelet Count 149 X10^3/uL (150-400); Red Blood Cell Count 3.48 X10^6/uL (4.0-5.2); Red Cell Distribution Width 18.6 % (11.6-14.8); White Blood Cell Count 17.9 X10^3/uL (4.5-11.0)
[2020-09-16 07:51] LABS: BUN Creatinine Ratio 33.3 (6-22); Blood Urea Nitrogen 15 mg/dL (7-17); Calcium 9.5 mg/dL (8.4-10.2); Carbon Dioxide 30 mmol/L (22-32); Chloride 103 mmol/L (98-107); Estimated Glomerular Filt Rate > 60.0 mL/min (>60); Glucose 117 mg/dL (80-110); HEMOLYSIS < 15 (0-50); Potassium 4.1 mmol/L (3.4-5.1); Sodium 136 mmol/L (137-145)
[2020-09-16] MEDS: PANTOPRAZOLE 40 MG VIAL IV (09:34)
[2020-09-16] MEDS: GABAPENTIN 100 MG CAPSULE PO ×3 (09:34→20:59)
[2020-09-16] MEDS: METOPROLOL IR 25 MG TABLET PO ×2 (09:34→20:59)
--- NOTE | 2020-09-16 10:19 | DI.RAD.S_ITS ---
PROCEDURE: XR CHEST 1V INDICATIONS: sob TECHNIQUE: One view of the chest was acquired. COMPARISON: [facility], CR, XR CHEST 1VW (PORTABLE), 10/16/2016, 17:51. Located Within [facility], CR, XR CHEST 1V, 08/18/2020, 6:47. Located Within [facility], CR, XR CHEST 1V, 09/14/2020, 13:56. FINDINGS: Surgical changes and devices: Postsurgical changes related to left lung resection as before Lungs and pleura: Complete opacification of the left hemithorax and associated perihilar surgical clips. The right lung appears clear. Scattered atelectasis. Improved aeration of the right upper and lower lobe since the prior study. Mediastinum: Mediastinal contours appear normal. Heart size is normal. Bones and chest wall: No suspicious bony lesions. Overlying soft tissues appear unremarkable. IMPRESSION: Postsurgical changes involving the left hemithorax as before. Interval improved aeration of the right upper lobe since 09/14/20. The right lung base also appears mildly improved. No new focal consolidation. Dictated by: Jules Ghosh M.D. on 09/16/2020 at 10:49 Approved by: Jules Ghosh M.D. on 09/16/2020 at 10:53
--- NOTE | 2020-09-16 11:43 | PC.NURSE ---
Addendum entered by Rachel Conde R.N. 09/16/20 15:36: Patient up to chair with 2 person assist. Had been given 1 mg morphine prior to transfer, reports she is still in pain, tearful. 2 mg administered. Patient reports pain has improved with reposition and medication. Original Note: Patient resting in bed at this time. Denies SOB, O2 at 2L, 98%. CTA, tele intact, pulses equal. Patient inc in brief. Repositioned, c/o pain in right hip with movement. Skin CDI. Patient eating and drinking, tolerating general diet. Denies N/V, BT active x 4, has not yet had a BM. IV abx administered, IV in left hand patent. VS WNL. Call light in reach.
--- NOTE | 2020-09-16 14:12 | PM.PN.1 ---
Subjective Subjective Date Patient Seen: 09/16/20 Time Patient Seen: 10:12 Interval history: Today she feels improved. She feels less weak. However she is complaining of feeling short of breath and wheezy. No cough, no fevers, no BRBPR. Exam Vital Signs (past 8 hours): - 09/16/20 07:47 09/16/20 08:00 09/16/20 12:00 Temperature 97.9 F 98.3 F Pulse Rate 90 92 H 94 H Respiratory Rate 16 18 18 Blood Pressure 130/67 134/64 Pulse Oximetry 96 96 96 Oxygen Delivery Method Nasal Cannula Oxygen Flow Rate 0 Narrative Exam Narrative: GENERAL APPEARANCE: chornically ill appearing, fatigued, no acute distress. HEENT: Normocephalic, PERRLA, conjunctiva clear, EOMs intact without nystagmus, mucous membranes are moist and pink. NECK/THYROID: neck supple, no thyromegaly, trachea midline. LYMPH NODES: no cervical or supraclavicular lymphadenopathy. SKIN: [place], warm and dry, no visible lesions, rashes, ulcerations or petechiae. HEART: regular rate and rhythm, S1-S2, no murmur, no rubs or gallops, brisk capillary refill, no edema LUNGS: Hyper-resonance left chest, clear breath sounds right crackles right base without coarseness or wheezing no cough present CHEST: Symmetrical movement, no accessory muscle use, shallow tidal volume. ABDOMEN: Soft, no distention, no abdominal tenderness, no guarding or peritoneal signs, no organomegaly, active bowel tones. BACK: Normal curvature, nontender to palpation, back pain on percussion EXTREMITIES: Decreased range of motion, no edema NEUROLOGIC: AAO to person and place, no lateralizing symptoms, cranial nerves II-XII grossly intact, sensation intact to light touch, hearing grossly normal to speech. PSYCH: Alert and responsive, ooperative stable behavior Objective Labs Result Diagrams: 09/16/20 07:20 09/16/20 07:20 Labs: Laboratory Results - last 24 hr 09/15/20 09/15/20 09/15/20 15:30 17:45 20:40 WBC 19.8 H RBC 3.49 L Hgb 9.6 L Hct 29.9 L MCV 85.6 MCH 27.6 MCHC 32.2 RDW 18.1 H Plt Count 164 Sodium Potassium Chloride Carbon Dioxide BUN Creatinine Estimated GFR BUN/Creatinine Ratio Glucose Calcium Troponin I 0.037 H Nasal Screen MRSA (PCR) Negative for mrsa 09/16/20 09/16/20 07:20 07:20 WBC 17.9 H RBC 3.48 L Hgb 9.7 L Hct 29.6 L MCV 85.1 MCH 28.0 MCHC 32.9 RDW 18.6 H Plt Count 149 L Sodium 136 L Potassium 4.1 Chloride 103 Carbon Dioxide 30 BUN 15 Creatinine 0.45 L Estimated GFR > 60.0 BUN/Creatinine Ratio 33.3 H Glucose 117 H Calcium 9.5 Troponin I Nasal Screen MRSA (PCR) [facility] Medical History Cancer Chronic anemia Chronic respiratory failure Hypertension Metastatic lung cancer (metastasis from lung to other site) Pneumonia due to COVID-19 virus Surgical History H/O pneumonectomy Family History (Updated 09/15/20 @ 02:06 by MICHELLE Romo) Father Natural with unknown cause Mother Medical history unknown Daughter Lupus Family/Other Diabetes mellitus Social History household members: spouse Smoking Status: Never smoker alcohol intake: never Assessment & Plan Assessment & Plan narrative: 75-year-old female with a history of metastatic lung cancer, s/p pneumonectomy, status post brain surgery for metastases, 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 1. Near syncope, resolved upon arrival. -multifactorial related to: Acute on chronic anemia and acute hypoxic respiratory failure. -each processes treated as described below. 2. Acute on chronic respiratory failure with hypoxia, incompletely treated pneumonia, present on admission, active. -status post pneumonectomy for lung cancer. Patient is on chronic home O2 at 2 liters/minute. -the patient was found to be acutely hypoxic with an oxygen saturation 81% on room air equates to a PF ratio of 214 using table references. The patient initially required 4-5L of O2. -Chest x-ray showed hyperexpansion of right lung, new alveolar infiltration within right upper lobe and in the right lower lobe. A CT angiogram of the chest finds no PE, mild patchy airspace opacity. -patient has an elevated white count at 26.1, bands on diff, WBC is improving with abx -patient recent admission on 08/28/2020 for pneumonia. will order broad spectrum antibiotics for bacterial pneumonia with vancomycin, zosyn. order sputum cultures. MRSA swab negative so DC vanco. 3. Acute on chronic anemia, present on admission, active -anemias bleed be multifactorial related to chemotherapy as well as reports of dark probable melanotic stools in setting of GERD. No complaints of epigastric pain hematemesis or hematochezia. -the patient is typed and screened and transfused 2 units of packed RBCs. had good response to hgb >10, today down slightly to 9.7. No evidence of active GI bleeding, continue to trend hgb. -ordered stool guaiac -patient's daughter who holds DPOA has refused option of endoscopy for definitive diagnosis. -order Protonix 40 mg twice daily. 4. Elevated proBNP, probable acute on chronic right heart failure status post pneumonectomy, present on admission, active -patient has had elevated proBNP, previous elevated proBNP was 501 on 08/19/2020. Patient with mild crackles on auscultation. -believe the elevation is related to right-sided pre load and restrictive pulmonary vasculature status post pneumonectomy. -ordered Lasix 20 mg IV initially and now down to baseline o2 requirement, so stopped lasix -patient takes metoprolol tartrate 25 mg twice daily 5. Lung cancer with metastases to the right hip, chronic, stable. -ordered morphine 2-4 mg IV every 4 hours as needed for pain. -will continue the patient's home regimen of lorlatinib 25 mg daily in the morning VTE prophylaxis: SCDs, chemical prophylaxis contraindicated IV fluid: None Diet: clears, advance as tolerated Code status: The patient's daughter Ivon holds DPOA, designates DNR however the patient states she would like to be resuscitated. Quality VTE Deep Vein Thrombosis/Pulmonary Embolism Present on Admission: No
[2020-09-16] MEDS: MORPHINE 2 MG/ML INJ 1 MG IV (14:14)
[2020-09-16] MEDS: MORPHINE 4 MG/ML INJ 2 MG IV ×3 (15:04→21:04)
[2020-09-16] MEDS: LORLATINIB 25 MG 75 EACH PO (17:38)
[2020-09-16] MEDS: PANTOPRAZOLE 40 MG TABLET PO (20:59)
--- NOTE | 2020-09-16 21:56 | PC.NURSE ---
Patient has not voided on evening shift so this handbook writer bladder scanned patient and got 280ml. Notified RN and encouraged patient to drink more fluids.
[2020-09-17] MEDS: PIPERACILLIN-TAZO 2.25 GM/50 ML FROZ.PIGGY IV ×2 (04:41→09:36)
[2020-09-17 05:30] VITALS: BP 114/67; PULSE 93; RESP 18; TEMP 36.9; O2SAT 98
[2020-09-17 05:31] LABS: Hematocrit 29.7 % (36-46); Hemoglobin 9.5 g/dL (12.0-16.0); Mean Corpuscular HGB Conc 32.1 % (30-36); Mean Corpuscular Hemoglobin 27.1 PG (26-34); Mean Corpuscular Volume 84.5 fL (80-100); Platelet Count 158 X10^3/uL (150-400); Red Blood Cell Count 3.51 X10^6/uL (4.0-5.2); Red Cell Distribution Width 17.8 % (11.6-14.8)
[2020-09-17 05:39] LABS: BUN Creatinine Ratio 35.4 (6-22); Blood Urea Nitrogen 17 mg/dL (7-17); Calcium 9.3 mg/dL (8.4-10.2); Carbon Dioxide 31 mmol/L (22-32); Chloride 104 mmol/L (98-107); Estimated Glomerular Filt Rate > 60.0 mL/min (>60); Glucose 112 mg/dL (80-110); HEMOLYSIS < 15 (0-50); Potassium 4.1 mmol/L (3.4-5.1); Sodium 134 mmol/L (137-145)
[2020-09-17 06:15] VITALS: BP 118/69; PULSE 64
[2020-09-17 07:35] VITALS: PULSE 77; RESP 16; O2SAT 98
[2020-09-17 08:00] VITALS: BP 131/87; PULSE 108; RESP 16; TEMP 36.4; O2SAT 94
[2020-09-17] MEDS: MORPHINE 2 MG/ML INJ 1 MG IV (08:11)
[2020-09-17] MEDS: METOPROLOL IR 25 MG TABLET PO (09:30)
[2020-09-17] MEDS: GABAPENTIN 100 MG CAPSULE PO (09:30)
[2020-09-17] MEDS: SODIUM CHLORIDE 0.9% FLUSH 10 ML IV (09:30)
[2020-09-17] MEDS: PANTOPRAZOLE 40 MG TABLET PO (09:30)
[2020-09-17 10:00] VITALS: BP 115/78; BP 121/71; BP 127/77; PULSE 100; PULSE 105; PULSE 111
[2020-09-17 11:00] VITALS: BP 117/68; PULSE 97; RESP 16; TEMP 36.6; O2SAT 95
--- NOTE | 2020-09-17 15:20 | PC.NURSE ---
Discharge education given to pt and son by WALT Elizabeth. Discussed anemia, medications, s/s of infection, s/s of stroke, f/u appts, diet and activity. IV removed. Tele removed. All questions answered. All belongings packed and sent with pt's son. Pt left via w/c accompanied by DIFFUSER OPERATOR and son, to son's POV.
--- NOTE | 2020-09-17 15:23 | CM.DPC ---
d/c home with HH Per MD, patient is medically stable to d/c with HH today. MD consulted with patient's oncologist, patient has an appt on 09/20/20 for follow up. JENNIFER contacted [facility] and updated on patient d/c and faxed HH referral with d/c orders and order summary. JENNIFER updated nurse, no concerns reported regarding d/c. Plan to for patient to d/c to home with family and [facility] LED[facility]ET[facility]. DI Andres
[2020-09-19 16:08] LABS: H. Pylori Antigen Stool Negative (Negative)
--- NOTE | 2020-09-19 17:16 | P.DS_ITS ---
History of Present Illness History of Present Illness Date Patient Seen: 09/17/20 Chief complaint: Near syncope Narrative: Ms. 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 Patient was sitting in her wheelchair or speaking with family when she went limp and lean to the side with her eyes open unresponsive for approximately 15 seconds. Patient had nausea and vomiting x1. EMS found the patient hypoxic with an oxygen saturation of 81% and responded well to oxygen therapy. The patient has had 2 hospitalization in the last month on 08/18/2020 for GI bleeding thought to be related to chemotherapy and then again on 08/28/2020 for pneumonia. The patient reports increasing shortness of breath with no prior nausea vomiting and endorses having dark stools. She reports no complaints of headaches or dizziness, no visual changes, nasal congestion or sore throat. She reports no complaints of pain including no chest pain or palpitations. She is chronically short of breath and uses home O2 at 2 liters/minute at baseline. She denies epigastric or abdominal pain, has no abdominal cramping, diarrhea or constipation. The patient has metastases to the right hip and states her pain is controlled, she uses a wheelchair for mobilization. Upon admission the patient has heart rate 91, blood pressure 149/89, respi rations 18 saturating 100% on 5 liters/minutes nasal cannula. Chest x-ray is obtained: Longstanding postoperative changes of left pneumonectomy. Hyperexpansion of right lung, new alveolar infiltration within right upper lobe and in the right lower lobe. A CT angiogram of the chest finds no PE, mild patchy airspace opacity. Head CT finds no acute intracranial processes. On laboratory analysis the patient has white count of 26.1 with elevated neutrophils of 21,400 and monocytes of 1100. The patient's coagulation studies are within normal limits. On chemistry she has a sodium of 134, BUN of 21 and creatinine of 0.55. Magnesium is 2.5. On liver functions has a total bilirubin of 1.0, AST of 109, ALT of 18 and alkaline phosphatase of 1107. Her total CK is 22 and a troponin is 0.015. ProBNP is 2020. Procalcitonin is 0.21. Endoscopy was discussed with the patient's daughter is her DPOA and from prior discussions she has been told patient should not have surgery related to pneumonectomy including endoscopy there for surgery is not consult. Patient's type and screen will transfuse 2 units of packed red cells. Patient is given Zofran 4 mg for nausea. She is admitted to the hospitalist service for symptomatic anemia. Discharge Providers Provider Date of admission: 09/14/20 17:21 Discharge Date: 09/17/20 Primary care physician: Tamica Goodwin MD Consults: 09/14/20 20:17 Consult to Dietitian, Adult Routine Comment: Reason For Exam: GI bleed, symptomatic anemia Consult to Discharge Planning Routine Comment: Consult to Physical Therapy Evaluate & Treat Comment: Physician Instructions: Evaluate and Treat 09/17/20 14:28 Consult to Home Health Routine Comment: Anemia, hypoxia, and pneumonia Reason For Exam: Set up HH for RN for d/c home Discharge provider: Karla Peterson MD Summary Hospital Course Discharge Diagnosis: 1. Symptomatic Anemia 2. Acute on Chronic REspiratory Failure 3. Pneumonia probable Gram-negative 4 LUng Cancer, with bony mets, prior brain mets s/p resection 5. Pneumonectomy 6. Acute right heart failure present on admission 7. Hyponatremia Hospital Course: Patient is a 75-year-old female with a history of lung cancer status post pneumonectomy, chronic respiratory failure, chronic anemia who pres ented to the hospital after syncopal episode. Was felt that syncopal episode was multifactorial likely related to her anemia and chronic hypoxic failure. Patient did receive 1 unit of packed RBCs. She was placed on antibiotics IV. It was felt she had probable Gram-negative pneumonia as her MRSA. Nasal screen was negative. Was initially treated with Zosyn and Vanco and then switched over to Augmentin at discharge. After treatment with Lasix and antibiotics the patient improved. She was felt to be back to her baseline. I discussed the case with the patient's oncology nurse who informed me that a hospice referral had been made. I spoke to the patient's daughter lay regarding the role of hospice in the situation and strongly recommended that her and family consider it. The daughter indicated that she and her siblings would be meeting and discussing long-term plans for the mother including hospice. She was somewhat taken aback as she did not appear tear appeared understand the mom was as ill as she was. The patient has a follow-up appointment with Oncology on September 20. She will attend that follow-up meeting and the family will discuss with Oncology the need for hospice given her recurrent admissions and recurrent episodes that she has had most recently. Patient was improved deemed appropriate for discharge and arrangements were made to discharge her home Exam Vital Signs (past 8 hours): Oxygen Delivery Method Nasal Cannula Oxygen Flow Rate 2 Narrative Exam Narrative: Frail elderly female who appeared ill somewhat short of breath but back to baseline Lungs: Decreased breath sounds on the left, normal breath sounds on the right Cardiac exam: Regular rate and rhythm normal S1-S2 Abdomen: Soft nontender nondistended Extremities: No edema Objective Labs Result Diagrams: 09/17/20 05:05 09/17/20 05:05 Labs: Laboratory Results - last 24 hr 09/14/20 13:05 H. pylori Antigen Negative COUNTS INCLUDE 234 BEDS AT THE [facility] Medical History Cancer Chronic anemia Chronic respiratory failure Hypertension Metastatic lung cancer (metastasis from lung to other site) Pneumonia due to COVID-19 virus Surgical History H/O pneumonectomy Family History (Updated 09/15/20 @ 02:06 by MICHELLE Romo) Father Natural with unknown cause Mother Medical history unknown Daughter Lupus Family/Other Diabetes mellitus Social History household members: spouse Smoking Status: Never smoker alcohol intake: never Discharge Assessment & Plan Assessment and Plan Assessment: 1. Acute on chronic hypoxic respiratory failure 2. Probable Gram-negative pneumonia 3. Acute right heart failure present on admission 4. Chronic anemia, status post 1 unit of packed RBCs 5. Hypertension 6. GERD Plan of Treatment: Discharge home on antibiotics as prescribed Follow-up with oncology Hospice referral in place Discharge Plan Discharge Plan Patient Disposition: Home Health Service Transfer to: [facility] Discharge orders & Medications Prescriptions: New amoxicillin-pot clavulanate [Augmentin] 875-125 mg tablet 1 tab PO BID Qty: 14 RF: 0 Continued lorlatinib 25 mg Tablet 25 mg PO DAILY RF: 0 gabapentin 100 mg Capsule 100 mg PO TID RF: 0 metoprolol tartrate 25 mg Tablet 25 mg PO BID RF: 0 omeprazole 40 mg capsule,delayed release(DR/EC) 40 mg PO BID 90 Days Qty: 180 RF: 0 Follow up/Referrals: Tamica Goodwin MD [Primary Care Provider] - Diet/Activity/Treatments Diet: Diet as Tolerated Skin/Wound/Dressing Care Report to your healthcare provider any signs of infection, such as:: chills, fever Visit Report/Discharge Packet Instructions: Anemia Discharge Data Primary Care Provider: Tamica Goodwin Quality VTE Deep Vein Thrombosis/Pulmonary Embolism Present on Admission: No
== END 2020-09-17 15:23 | disposition home health service (06) | DRG 177 ==
LOC: ED 17:14 → AC 09-15 11:09
PROVIDERS: Internal Medicine; Nurse Practitioner Adult Health; Admitting Provider Internal Medicine; Emergency Provider Emergency Medicine; PCP Internal Medicine; Referring Provider Emergency Medicine; Visit Provider Internal Medicine
DX: J15.6 Pneumonia due to other Gram-negative bacteria (principal); J96.21 Acute and chronic respiratory failure with hypoxia; C34.90 Malignant neoplasm of unspecified part of unspecified bronchus or lung; C79.51 Secondary malignant neoplasm of bone; Z99.81 Dependence on supplemental oxygen; I50.813 Acute on chronic right heart failure; D64.81 Anemia due to antineoplastic chemotherapy; T45.1X5A Adverse effect of antineoplastic and immunosuppressive drugs, initial encounter; I10 Essential (primary) hypertension; Z20.822 Contact with and (suspected) exposure to COVID-19; Z90.2 Acquired absence of lung [part of]
CPT/HCPCS: 36415; 36430; 70450; 71045; 71275; 80048; 80053; 82550; 83605; 83690; 83735; 83880; 84145; 84484; 85007; 85014; 85018; 85025; 85027; 85379; 85610; 85730; 86850; 86900; 86901; 87338; 87635; 87797; 93005; 93010; 94760; 94762; 96374; 99285; P9016; C9113; J1940; J2270; J2405; J2543; Q9967

== ENCOUNTER 2020-09-25 21:04 | Emergency (ER) | payer MEDICARE, OTHER, SELFPAY ==
[2020-09-15 15:55] VITALS: BMI 22.6
[2020-09-25] VITALS (9 sets, daily range): BP systolic 72–78; BP diastolic 49–54; PULSE 80–85; RESP 22–40; TEMP 36.4; O2SAT 91–100; BMI 19.1
--- NOTE | 2020-09-25 21:12 | DI.RAD.S_ITS ---
PROCEDURE: XR CHEST 1V INDICATIONS: sob TECHNIQUE: One view of the chest was acquired. COMPARISON: [facility], CR, XR CHEST 1V, 09/16/2020, 10:22. FINDINGS: Surgical changes and devices: Postoperative changes of left lung resection. Lungs and pleura: There is complete opacification of the left hemithorax with mediastinal shift to the left. The right lung demonstrates a perihilar airspace opacity which is new compared to the prior x-ray. No pneumothorax or pleural effusion. Mediastinum: The mediastinum and trachea are deviated to the left due to prior left lung resection. Bones and chest wall: No suspicious bony lesions. Overlying soft tissues appear unremarkable. IMPRESSION: 1. Right perihilar infiltrate. Differential diagnosis includes pneumonia or CHF. Pneumonia is favored. 2. Opacification of the left lung due to prior left lung resection. Dictated by: Fernando Benoit M.D. on 09/25/2020 at 22:03 Approved by: Fernando Benoit M.D. on 09/25/2020 at 22:06
[2020-09-25] MEDS: ONDANSETRON 4 MG/2 ML INJ (21:20)
[2020-09-25 22:04] LABS: INR 1.3 (0.9-1.3); Prothrombin Time 14.5 SECONDS (10.1-12.7)
[2020-09-25 22:07] LABS: Creatine Kinase 94 U/L (30-135); Hematocrit 23.3 % (36-46); Hemoglobin 7.2 g/dL (12.0-16.0); Magnesium 2.4 mg/dL (1.6-2.3); Mean Corpuscular Hemoglobin 26.4 PG (26-34); PTT Partial Thromboplastin Tim 26 SECONDS (26.4-36.2); Platelet Count 184 X10^3/uL (150-400); Red Blood Cell Count 2.74 X10^6/uL (4.0-5.2); Red Cell Distribution Width 19.7 % (11.6-14.8); White Blood Cell Count 19.2 X10^3/uL (4.5-11.0)
[2020-09-25 22:08] LABS: Lactate (Lactic Acid) 2.5 mmol/L (0.7-2.1)
[2020-09-25 22:09] LABS: Alanine Aminotransferase 67 IU/L (<35); Albumin 3.3 g/dL (3.5-5.0); Alkaline Phosphatase 984 U/L (38-126); Aspartate Aminotransferase 138 IU/L (14-36); BUN Creatinine Ratio 60.8 (6-22); Bilirubin Total 1.2 mg/dL (0.2-1.3); Blood Urea Nitrogen 31 mg/dL (7-17); Calcium 9.2 mg/dL (8.4-10.2); Carbon Dioxide 20 mmol/L (22-32); Chloride 114 mmol/L (98-107); Estimated Glomerular Filt Rate > 60.0 mL/min (>60); Globulin 3.3 g/dL (1.7-4.1); Glucose 176 mg/dL (80-110); HEMOLYSIS < 15 (0-50); Potassium 4.6 mmol/L (3.4-5.1); Sodium 142 mmol/L (137-145); Total Protein 6.6 g/dL (6.3-8.2)
[2020-09-25 22:13] LABS: Add Manual Diff / Slide Review YES
[2020-09-25 22:19] LABS: NT-proBNP (BNP-Adult 18+) 10900 pg/mL (<450); Troponin I 0.067 ng/mL (0.01-0.034)
[2020-09-25 22:23] LABS: Procalcitonin 0.16 ng/mL (<0.5)
[2020-09-25 22:26] LABS: Neutrophils Absolute Manual 15168 /uL (3000-5900); Nucleated Red Blood Cells 8 #/Diff; Total Cells Counted 100
[2020-09-25 22:27] LABS: Hypochromasia 2+; Microcytosis 2+; Schistocytes 2+
[2020-09-25 22:28] LABS: Acanthocytes 1+; Polychromasia 3+; Spherocytes 1+
--- NOTE | 2020-09-25 23:40 | PC.NURSE ---
DO and RN discussed goals of care and plans with pts daughter Melissa; She is discussing with her family now to determine next steps. Pt is resting comfortably on 2L NC.
[2020-09-25 23:42] LABS: Reflexed Lactate in 2 Hours Y
[2020-09-26] VITALS (12 sets, daily range): BP systolic 72–115; BP diastolic 46–72; PULSE 83–100; RESP 18–29; TEMP 37.1; O2SAT 85–100
[2020-09-26 00:25] LABS: Lactate 2HR (Lactic Acid Rflx) 2.3 mmol/L (0.7-2.1)
--- NOTE | 2020-09-26 00:25 | ED_ITS ---
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 Today she presents with increasing shortness of breath. They do have some oxygen at home but have noted increase use. They also have home health at home. Patient is progressively getting weaker is she has multiple children at home who love her and care for her. She apparently has been getting IV in fusions of normal saline for dehydration as an outpatient via oncology. MD Complaint: shortness of breath Related Data Home Medications Medication Instructions Recorded Confirmed gabapentin 100 mg PO TID 08/18/20 09/14/20 lorlatinib 25 mg PO DAILY 08/18/20 09/14/20 metoprolol tartrate 25 mg PO BID 08/18/20 09/14/20 Previous Rx's Medication Instructions Recorded omeprazole 40 mg PO BID 90 Days #180 cap 08/20/20 amoxicillin-pot clavulanate 1 tab PO BID #14 tab 09/17/20 [Augmentin] Allergies Allergy/AdvReac Type Severity Reaction Status Date / Time No Known Drug Allergies Allergy Verified 08/28/20 10:31 Review of Systems Review of Systems ROS Unobtainable: Unobtainable due to medical condition Patient History Medical History Cancer Chronic anemia Chronic respiratory failure Hypertension Metastatic lung cancer (metastasis from lung to other site) Pneumonia due to COVID-19 virus Surgical History H/O pneumonectomy Family History Father Natural with unknown cause Mother Medical history unknown Daughter Lupus Family/Other Diabetes mellitus Social History household members: spouse Smoking Status: Never smoker alcohol intake: never Smoking Status: Never smoker alcohol intake frequency: 0-2 drinks per day Substance Use Type: does not use Exam Initial Vital Signs Initial Vital Signs: Vital Signs Pulse Rate 84 09/25/20 21:17 Respiratory Rate 34 H 09/25/20 21:17 Pulse Oximetry 95 09/25/20 21:17 GENERAL: Week alert 75-year-old female in [id number] respiratory distress HEENT: Head atraumatic,EOMI, pupils reactive, face symmetric, moist mucous membranes CARDIOVASCULAR: Regular rate and rhythm without murmurs, rubs or gallops. RESPIRATORY: Decreased breath sounds on the left tachypneic slight rales on right ABDOMEN: Soft, nontender. Normoactive bowel sounds all 4 quadrants. No guarding or rebound. EXTREMITIES: Normal range of motion, no clubbing or edema. Neurovascularly intact NEUROLOGICAL: Alert, week, but moving all extremities SKIN: Warm, dry, no laceration, no petechiae, no rashes or lesions. Course Orders Ordered: ED Orders 09/26/20 01:00 COVID19 - ADMIT (VP COMMUNICATIONS swab/PCR) Stat 09/26/20 01:05 Urinalysis and Microscopic Stat Urine Culture Stat Discontinued Medications Furosemide (Furosemide 40 Mg/4 Ml Vial) 40 mg IV NOW ONE Stop: 09/25/20 22:53 Last Admin: 09/26/20 00:51 Dose: 40 mg Documented by: LARRY Metoclopramide HCl (Metoclopramide 10 Mg/2 Ml Inj) 5 mg IV NOW ONE Stop: 09/26/20 00:26 Last Admin: 09/26/20 00:29 Dose: 5 mg Documented by: LARRY Vital Signs Vital signs: Vital Signs - 8 hr 09/26/20 00:00 09/26/20 00:30 09/26/20 00:50 Temperature Pulse Rate 84 98 H 100 H Respiratory Rate 23 28 H 28 H Blood Pressure 82/50 L 92/55 L 115/72 Pulse Oximetry 94 94 92 09/26/20 00:51 09/26/20 01:00 09/26/20 01:30 Temperature Pulse Rate 100 H 87 88 Respiratory Rate 29 H 25 H 23 Blood Pressure 114/65 81/60 L 92/56 L Pulse Oximetry 91 85 L 100 09/26/20 02:00 09/26/20 02:30 09/26/20 03:00 Temperature Pulse Rate 83 85 85 Respiratory Rate 18 20 21 Blood Pressure 72/46 L 80/53 L 95/54 L Pulse Oximetry 100 97 99 09/26/20 03:30 09/26/20 04:00 09/26/20 05:36 Temperature 98.7 F Pulse Rate 85 91 H 92 H Respiratory Rate 19 23 24 Blood Pressure 98/56 L 95/54 L 115/62 Pulse Oximetry 98 95 MDM - SOB/Dyspnea Lab Data Attestation: I reviewed the patient's lab results. Result diagrams: 09/25/20 21:35 09/25/20 21:35 Labs: Lab Results 09/25/20 09/25/20 09/25/20 Range/Units 21:35 21:35 21:35 WBC 19.2 H (4.5-11.0) X10^3/uL RBC 2.74 L (4.0-5.2) X10^6/uL Hgb 7.2 L (12.0-16.0) g/dL Hct 23.3 L (36-46) % MCV 85.0 (80-100) fL MCH 26.4 (26-34) PG MCHC 31.0 (30-36) % RDW 19.7 H (11.6-14.8) % Plt Count 184 (150-400) X10^3/uL Neut % (Auto) Not Reportable Lymph % (Auto) Not Reportable [place] % (Auto) Not Reportable Eos % (Auto) Not Reportable Baso % (Auto) Not Reportable Lymph # (Auto) Not Reportable [place] # (Auto) Not Reportable Baso # (Auto) Not Reportable Total Counted 100 Seg Neutrophils % 70.0 (38-70) % Band Neutrophils % 9.0 H (3-7) % Lymphocytes % (Manual) 16.0 L (25-45) % Monocytes % (Manual) 4.0 (2-11) % Metamyelocytes % 1.0 H (-0) % Neutrophils # (Manual) 32993 H (7789-0616) /uL Nucleated RBCs 8 H ( - 0) #/Diff RBC Morphology See below Polychromasia 3+ H Hypochromasia 2+ H Microcytosis 2+ H Spherocytes 1+ H Acanthocytes (Spur) 1+ H Schistocytes 2+ H PT 14.5 H (10.1-12.7) SECONDS INR 1.3 (0.9-1.3) APTT 26 L (26.4-36.2) SECONDS Sodium (137-145) mmol/L Potassium (3.4-5.1) mmol/L Chloride (98-107) mmol/L Carbon Dioxide (22-32) mmol/L BUN (7-17) mg/dL Creatinine (0.52-1.04) mg/dL Estimated GFR (>60) mL/min BUN/Creatinine Ratio (6-22) Glucose (80-110) mg/dL Lactate (0.7-2.1) mmol/L Calcium (8.4-10.2) mg/dL Magnesium 2.4 H (1.6-2.3) mg/dL Total Bilirubin (0.2-1.3) mg/dL AST (14-36) IU/L ALT (<35) IU/L Alkaline Phosphatase (38-126) U/L Total Creatine Kinase 94 (30-135) U/L CK-MB (CK-2) TNP CK-MB (CK-2) Rel Index TNP Troponin I 0.067 H (0.01-0.034) ng/mL NT-Pro-B Natriuret Pep 10368 H (<450) pg/mL Total Protein (6.3-8.2) g/dL Albumin (3.5-5.0) g/dL Globulin (1.7-4.1) g/dL Albumin/Globulin Ratio (1.0-2.8) Procalcitonin 0.16 (<0.5) ng/mL Urine Color Urine Appearance Urine pH (4.5-8.0) Ur Specific [place] (1.000-1.035) Urine Protein (Negative) Urine Glucose (UA) (Negative) g/dL Urine Ketones (NEGATIVE) Urine Occult Blood (Negative) Urine Nitrate (Negative) Urine Bilirubin (NEGATIVE) Urine Urobilinogen (0.2) E.U./dL Ur Leukocyte Esterase (NEGATIVE) Urine RBC (0-5/HPF) Urine WBC (0-5/HPF) Ur Squamous Epith Cells (0-5/HPF) Calcium Oxalate Crystal Amorphous Sediment Urine Bacteria (None) Hyaline Casts (None) Granular Casts (None) Ur Culture Indicated? SARS-CoV-2 (PCR) (Negative) 09/25/20 09/25/20 09/25/20 Range/Units 21:35 21:35 23:56 WBC (4.5-11.0) X10^3/uL RBC (4.0-5.2) X10^6/uL Hgb (12.0-16.0) g/dL Hct (36-46) % MCV (80-100) fL MCH (26-34) PG MCHC (30-36) % RDW (11.6-14.8) % Plt Count (150-400) X10^3/uL Neut % (Auto) Lymph % (Auto) [place] % (Auto) Eos % (Auto) Baso % (Auto) Lymph # (Auto) [place] # (Auto) Baso # (Auto) Total Counted Seg Neutrophils % (38-70) % Band Neutrophils % (3-7) % Lymphocytes % (Manual) (25-45) % Monocytes % (Manual) (2-11) % Metamyelocytes % (-0) % Neutrophils # (Manual) (9663-4580) /uL Nucleated RBCs ( - 0) #/Diff RBC Morphology Polychromasia Hypochromasia Microcytosis Spherocytes Acanthocytes (Spur) Schistocytes PT (10.1-12.7) SECONDS INR (0.9-1.3) APTT (26.4-36.2) SECONDS Sodium 142 (137-145) mmol/L Potassium 4.6 (3.4-5.1) mmol/L Chloride 114 H (98-107) mmol/L Carbon Dioxide 20 L (22-32) mmol/L BUN 31 H (7-17) mg/dL Creatinine 0.51 L (0.52-1.04) mg/dL Estimated GFR > 60.0 (>60) mL/min BUN/Creatinine Ratio 60.8 H (6-22) Glucose 176 H (80-110) mg/dL Lactate 2.5 H 2.3 H (0.7-2.1) mmol/L Calcium 9.2 (8.4-10.2) mg/dL Magnesium (1.6-2.3) mg/dL Total Bilirubin 1.2 (0.2-1.3) mg/dL AST 138 H (14-36) IU/L ALT 67 H (<35) IU/L Alkaline Phosphatase 984 H (38-126) U/L Total Creatine Kinase (30-135) U/L CK-MB (CK-2) CK-MB (CK-2) Rel Index Troponin I (0.01-0.034) ng/mL NT-Pro-B Natriuret Pep (<450) pg/mL Total Protein 6.6 (6.3-8.2) g/dL Albumin 3.3 L (3.5-5.0) g/dL Globulin 3.3 (1.7-4.1) g/dL Albumin/Globulin Ratio 1.0 (1.0-2.8) Procalcitonin (<0.5) ng/mL Urine Color Urine Appearance Urine pH (4.5-8.0) Ur Specific [place] (1.000-1.035) Urine Protein (Negative) Urine Glucose (UA) (Negative) g/dL Urine Ketones (NEGATIVE) Urine Occult Blood (Negative) Urine Nitrate (Negative) Urine Bilirubin (NEGATIVE) Urine Urobilinogen (0.2) E.U./dL Ur Leukocyte Esterase (NEGATIVE) Urine RBC (0-5/HPF) Urine WBC (0-5/HPF) Ur Squamous Epith Cells (0-5/HPF) Calcium Oxalate Crystal Amorphous Sediment Urine Bacteria (None) Hyaline Casts (None) Granular Casts (None) Ur Culture Indicated? SARS-CoV-2 (PCR) (Negative) 09/26/20 09/26/20 Range/Units 01:00 01:05 WBC (4.5-11.0) X10^3/uL RBC (4.0-5.2) X10^6/uL Hgb (12.0-16.0) g/dL Hct (36-46) % MCV (80-100) fL MCH (26-34) PG MCHC (30-36) % RDW (11.6-14.8) % Plt Count (150-400) X10^3/uL Neut % (Auto) Lymph % (Auto) [place] % (Auto) Eos % (Auto) Baso % (Auto) Lymph # (Auto) [place] # (Auto) Baso # (Auto) Total Counted Seg Neutrophils % (38-70) % Band Neutrophils % (3-7) % Lymphocytes % (Manual) (25-45) % Monocytes % (Manual) (2-11) % Metamyelocytes % (-0) % Neutrophils # (Manual) (1779-4997) /uL Nucleated RBCs ( - 0) #/Diff RBC Morphology Polychromasia Hypochromasia Microcytosis Spherocytes Acanthocytes (Spur) Schistocytes PT (10.1-12.7) SECONDS INR (0.9-1.3) APTT (26.4-36.2) SECONDS Sodium (137-145) mmol/L Potassium (3.4-5.1) mmol/L Chloride (98-107) mmol/L Carbon Dioxide (22-32) mmol/L BUN (7-17) mg/dL Creatinine (0.52-1.04) mg/dL Estimated GFR (>60) mL/min BUN/Creatinine Ratio (6-22) Glucose (80-110) mg/dL Lactate (0.7-2.1) mmol/L Calcium (8.4-10.2) mg/dL Magnesium (1.6-2.3) mg/dL Total Bilirubin (0.2-1.3) mg/dL AST (14-36) IU/L ALT (<35) IU/L Alkaline Phosphatase (38-126) U/L Total Creatine Kinase (30-135) U/L CK-MB (CK-2) CK-MB (CK-2) Rel Index Troponin I (0.01-0.034) ng/mL NT-Pro-B Natriuret Pep (<450) pg/mL Total Protein (6.3-8.2) g/dL Albumin (3.5-5.0) g/dL Globulin (1.7-4.1) g/dL Albumin/Globulin Ratio (1.0-2.8) Procalcitonin (<0.5) ng/mL Urine Color Dark yellow Urine Appearance Sl cloudy Urine pH 5.5 (4.5-8.0) Ur Specific [place] 1.025 (1.000-1.035) Urine Protein 2+ H (Negative) Urine Glucose (UA) Negative (Negative) g/dL Urine Ketones Negative (NEGATIVE) Urine Occult Blood 2+ H (Negative) Urine Nitrate Negative (Negative) Urine Bilirubin Negative (NEGATIVE) Urine Urobilinogen 0.2 (0.2) E.U./dL Ur Leukocyte Esterase Trace H (NEGATIVE) Urine RBC 0-1/hpf (0-5/HPF) Urine WBC 0-1/hpf (0-5/HPF) Ur Squamous Epith Cells 1-5 /hpf (0-5/HPF) Calcium Oxalate Crystal Occasional H Amorphous Sediment 2+ Urine Bacteria Few (2-10) H (None) Hyaline Casts 0-1/lpf (None) Granular Casts 0-1/lpf (None) Ur Culture Indicated? Specimen cultured SARS-CoV-2 (PCR) Positive H (Negative) Imaging Data Chest x-ray: Radiologist's Impression: PROCEDURE: XR CHEST 1V INDICATIONS: sob TECHNIQUE: One view of the chest was acquired. COMPARISON: [facility], , XR CHEST 1V, 09/16/2020, 10:22. FINDINGS: Surgical changes and devices: Postoperative changes of left lung resection. Lungs and pleura: There is complete opacification of the left hemithorax with mediastinal shift to the left. The right lung demonstrates a perihilar airspace opacity which is new compared to the prior x-ray. No pneumothorax or pleural effusion. Mediastinum: The mediastinum and trachea are deviated to the left due to prior left lung resection. Bones and chest wall: No suspicious bony lesions. Overlying soft tissues appear unremarkable. IMPRESSION: 1. Right perihilar infiltrate. Differential diagnosis includes pneumonia or CHF. Pneumonia is favored. 2. Opacification of the left lung due to prior left lung resection. Dictated by: Fernando Benoit M.D. on 09/25/2020 at 22:03 ECG Data Attestation: I personally reviewed and interpreted this ECG as follows: Interpretation: Sinus rhythm rate [address] changes no T-wave inversions possible limb lead reversal--however looks very similar to previous EKG MDM Narrative Medical decision making narrative: The patient was rather quickly placed on high-flow nasal cannula to help with her tachypnea. It seemed to help quite a bit and she is resting comfortably. Patient is noted to be hypotensive while in the emergency department systolic in the 70s. She also is clearly fluid overloaded from IV is outpatient in [facility] her BNP is greater than 10,000. At this time she likely needed vasopressor support to help with diuresis. I have discussed at length multiple times with daughter and son who are shared DPOA is. I have explained central line procedure risks and benefits to them along with vasopressor support is. They are concerned about infection, especially because she only has 1 lung. I have explained multiple times that any foreign body inserted into the body has risk of infection. Sterile technique is used in we do our best to minimize infection. After hours of discussion they agree to a PICC line. Unfortunately he PICC team is not currently available, I tried to have them decide goals if she crashes before the PICC team is able to arrive. They finally agree to James catheter and Lasix. Patient's COVID test returns and is positive. Patient did have a COVID infection in June but has had multiple COVID test at this facility since then and have been negative including the 1 last week which is within admit COVID needing it was highly sensitive. Today's is also highly sensitive and admit COVID I suspect that she has a reinfection. Multiple conversations with family in regards to goals of care including central line vasopressors intubation CPR and treatment. I have answered their qu estions the best of my ability. There seems to be family members who have differing opinions on what should be done for patient. I have tried to discuss with patient what she wants however she is extremely weak. The family discussions with goals of care have delayed care in in of itself. Patient did urinate only a small amount in James catheter after Lasix. It minimally affected her blood pressure and fractured her blood pressure actually went up to systolic in the 80s. Family was given option of admission to the hospital, with vasopressor treatment COVID treatment at. Or COVID treatment but no vasopressors treatment. They requested vasopressor treatment CPR but no intubation. Your also given option of palliative care and comfort measure admission. At this time after multiple hours of conversation family has elected to take patient home to be with family. She has a hospital bed home healthcare and oxygen. It sounds the patient will be taken home and treated with comfort hi ures which at this time there is no indication to be given remdesivir or dexamethasone. Critical Care Time Critical Care Time Critical Care Time: Yes Total Critical Care Time: 120 Attestation: The high probability of a clinically significant, sudden or life threatening deterioration of the [cardiovascular] system(s) required my full and direct attention, intervention and personal management. The aggregate critical care time was 120 minutes. This time is in addition to time spent performing reported procedures but includes the following: [x] Data Review and interpretation [x] Patient assessment and monitoring of vital signs [x] Documentation [x] Medication orders and management [X] multiple family discussions Discharge Plan Departure Patient Disposition: Home Clinical Impression: COVID-19, Shock circulatory, Congestive heart failure Instructions: DI for COVID-19 (Suspected or Confirmed ) Activity Restrictions/Additional Instructions: *You have been diagnosed with recurrent COVID infection, congestive heart failure of low blood pressure *What to do: At this time is believe that her mother has recurrent infection of COVID-19. Previous tests were negative. She also is having significant fluid on her lungs as well causing hurt and blood pressure difficulties. You have elected to take your mother home with family and keep her comfortable. *Continue to take medications as directed *Follow up with your primary care provider in 2-3 days *Return to ER if you should have any new, worsening or concerning symptoms Prescriptions: No Action amoxicillin-pot clavulanate [Augmentin] 875-125 mg tablet 1 tab PO BID Qty: 14 RF: 0 lorlatinib 25 mg Tablet 25 mg PO DAILY RF: 0 gabapentin 100 mg Capsule 100 mg PO TID RF: 0 metoprolol tartrate 25 mg Tablet 25 mg PO BID RF: 0 omeprazole 40 mg capsule,delayed release(DR/EC) 40 mg PO BID 90 Days Qty: 180 RF: 0 Referrals: Tamica Goodwin MD [Primary Care Provider] -
[2020-09-26] MEDS: METOCLOPRAMIDE 10 MG/2 ML INJ 5 MG IV (00:29)
[2020-09-26] MEDS: FUROSEMIDE 40 MG/4 ML VIAL IV (00:51)
[2020-09-26 01:15] LABS: Glucose Urine UA NEGATIVE (Negative); Ketones Urine UA NEGATIVE (NEGATIVE); Leukocyte Esterase Urine UA TRACE (NEGATIVE); Nitrite Urine UA NEGATIVE (Negative); Occult Blood Urine UA 2+ (Negative); Protein Urine UA 2+ (Negative); Specific Gravity Urine UA 1.025 (1.000-1.035); Urobilinogen Urine UA 0.2 E.U./dL (0.2)
[2020-09-26 01:19] LABS: pH Urine UA 5.5 (4.5-8.0)
[2020-09-26 01:20] LABS: Amorphous Sediment Urine 2+; Appearance Urine UA SL CLOUDY; Bacteria Urine Few (2-10); Bilirubin Urine UA Negative (NEGATIVE); Calcium Oxalate Crystals Urine Occasional; Color Urine UA Dark Yellow; RBC Urine 0-1/HPF (0-5/HPF); Squamous Epithelial Cell Urine 1-5 /HPF (0-5/HPF); WBC Urine 0-1/HPF (0-5/HPF)
[2020-09-26 01:21] LABS: Culture Indicated Urine Specimen Cultured; Granular Casts Urine 0-1/LPF; Hyaline Casts Urine 0-1/LPF
[2020-09-26 01:44] LABS: COVID19 - ADMIT (NP swab/PCR) POSITIVE (Negative)
== END 2020-09-26 05:41 | disposition home or self-care (01) ==
PROVIDERS: Emergency Provider Emergency Medicine; PCP Internal Medicine
DX: U07.1 COVID-19 (principal); I50.9 Heart failure, unspecified; R57.9 Shock, unspecified
CPT/HCPCS: 36415; 51701; 71045; 80053; 81001; 82550; 83605; 83735; 83880; 84145; 84484; 85007; 85025; 85610; 85730; 87040; 87086; 87635; 93005; 96374; 96375; 99285; 99291; 99292; C9803; J1940; J2405; J2765